=== PATIENT | female | born 1940 | race Caucasian/White ===

== ENCOUNTER → 2018-09-04 11:32 | Outpatient (CLI) | payer MEDICARE, BC, SELFPAY ==
--- NOTE | 2018-09-04 | DI.MG.S_ITS ---
BILATERAL DIGITAL SCREENING MAMMOGRAM 3D/2D WITH CAD: 09/04/2018 CLINICAL: Routine screening. Family history of breast cancer. Comparison is made to exams dated: 05/05/2017 mammogram, 10/29/2015 mammogram, and 10/26/2014 mammogram - [facility]. The tissue of both breasts is heterogeneously dense. This may lower the sensitivity of mammography. Current study was also evaluated with a Computer Aided Detection (CAD) system. There is a benign mass in the right breast. No significant masses, calcifications, or other findings are seen in either breast. There has been no significant interval change. IMPRESSION: There is no mammographic evidence of malignancy. A 1 year screening mammogram is recommended. This exam was interpreted at Station ID: [id number]. NOTE: For mammograms, a report in lay terms will be sent to the patient. Approximately 15% of breast malignancies will not be visualized mammographically. In the management of a palpable breast mass, a negative mammogram must not discourage biopsy of a clinically suspicious lesion. Electronically Signed By: Maco urena/ayanna:09/06/2018 09:03:51 letter sent: Normal Exam ACR BI-RADS Category 2: Benign Finding(s) 3342F
== END ==
PROVIDERS: Family Provider Family Medicine; PCP Family Medicine; Visit Provider Family Medicine
DX: Z12.31 Encounter for screening mammogram for malignant neoplasm of breast (principal); Z80.3 Family history of malignant neoplasm of breast
CPT/HCPCS: 77063; 77067

== ENCOUNTER → 2019-01-20 09:21 | Outpatient (CLI) | payer MEDICARE, BC, SELFPAY ==
[2019-01-20 10:09] LABS: Add Manual Diff / Slide Review NO; Basophils Absolute Auto 0 /uL (0-100); Basophils Percent Auto 0.8 % (0-2); Eosinophils Absolute Auto 100 /uL (0-450); Eosinophils Percent Auto 2.7 % (2-4); Hematocrit 42.7 % (36-46); Hemoglobin 14.2 g/dL (12.0-16.0); Lymphocytes Absolute Auto 1300 /uL (1100-4500); Lymphocytes Percent Auto 29.4 % (25-40); Mean Corpuscular HGB Conc 33.4 % (30-36); Mean Corpuscular Hemoglobin 31.3 PG (26-34); Mean Corpuscular Volume 93.8 fL (80-100); Monocytes Absolute Auto 400 /uL (0-900); Monocytes Percent Auto 10.1 % (3-14); Neutrophils Absolute Auto 2500 /uL (1500-7000); Platelet Count 176 X10^3/uL (150-400); Red Blood Cell Count 4.55 X10^6/uL (4.0-5.2); White Blood Cell Count 4.5 X10^3/uL (4.5-11.0)
[2019-01-20 10:44] LABS: Alanine Aminotransferase 41 IU/L (9-52); Albumin 4.5 g/dL (3.5-5.0); Albumin Globulin Ratio 1.5 (1.0-2.8); Alkaline Phosphatase 88 U/L (38-126); Aspartate Aminotransferase 45 IU/L (14-36); Bilirubin Total 1.1 mg/dL (0.2-1.3); Blood Urea Nitrogen 18 mg/dL (7-17); Calcium 9.8 mg/dL (8.4-10.2); Carbon Dioxide 31 mmol/L (22-32); Chloride 102 mmol/L (98-107); Cholesterol 181 mg/dL (140-199); Estimated Glomerular Filt Rate > 60.0 mL/min (>60); Globulin 3.1 g/dL (1.7-4.1); Glucose 99 mg/dL (80-110); HDL Cholesterol 46 mg/dL (40-60); HEMOLYSIS < 15 (0-50); LDL Cholesterol Calculated 102 mg/dL (<100); Potassium 4.2 mmol/L (3.4-5.1); Sodium 141 mmol/L (137-145); Total Protein 7.6 g/dL (6.3-8.2); Triglycerides 166 mg/dL (35-150)
[2019-01-20 11:10] LABS: Thyroid Stimulating Hormone 0.18 uIU/mL (0.47-4.68)
[2019-01-20 11:44] LABS: Creatinine Urine Random 93.1 mg/dL
[2019-01-20 11:48] LABS: Microalbumi Creatinin Ratio Ur 65.5 ug/mg CR (<30); Microalbumin Urine Random 6.1 mg/dL (0-1.6)
== END ==
PROVIDERS: PCP Family Medicine; Visit Provider Family Medicine
DX: E78.00 Pure hypercholesterolemia, unspecified (principal); G47.33 Obstructive sleep apnea (adult) (pediatric); I10 Essential (primary) hypertension; N28.9 Disorder of kidney and ureter, unspecified; R53.82 Chronic fatigue, unspecified; R89.9 Unspecified abnormal finding in specimens from other organs, systems and tissues; R94.5 Abnormal results of liver function studies; Z13.21 Encounter for screening for nutritional disorder; Z79.899 Other long term (current) drug therapy
CPT/HCPCS: 36415; 80053; 80061; 82043; 82306; 82570; 84443; 85025

== ENCOUNTER → 2019-02-15 13:47 | Outpatient (CLI) | payer MEDICARE, BC, SELFPAY | PROVIDERS: PCP Family Medicine; Visit Provider Family Medicine | DX: M85.852 Other specified disorders of bone density and structure, left thigh (principal); Z78.0 Asymptomatic menopausal state | CPT/HCPCS: 77080 ==

== ENCOUNTER → 2019-06-28 09:51 | Outpatient (CLI) | payer MEDICARE, BC, SELFPAY ==
[2019-06-28 10:38] LABS: Add Manual Diff / Slide Review NO; Basophils Absolute Auto 0 /uL (0-100); Basophils Percent Auto 0.7 % (0-2); Eosinophils Absolute Auto 100 /uL (0-450); Eosinophils Percent Auto 1.8 % (2-4); Hematocrit 42.2 % (36-46); Hemoglobin 14.3 g/dL (12.0-16.0); Lymphocytes Absolute Auto 1300 /uL (1100-4500); Lymphocytes Percent Auto 33.2 % (25-40); Mean Corpuscular HGB Conc 33.8 % (30-36); Mean Corpuscular Hemoglobin 31.3 PG (26-34); Mean Corpuscular Volume 92.5 fL (80-100); Monocytes Absolute Auto 500 /uL (0-900); Monocytes Percent Auto 11.7 % (3-14); Neutrophils Absolute Auto 2100 /uL (1500-7000); Neutrophils Percent Auto 52.6 % (50-75); Platelet Count 174 X10^3/uL (150-400); Red Blood Cell Count 4.56 X10^6/uL (4.0-5.2); Red Cell Distribution Width 12.8 % (11.6-14.8); White Blood Cell Count 3.9 X10^3/uL (4.5-11.0)
[2019-06-28 11:07] LABS: Alanine Aminotransferase 98 IU/L (9-52); Albumin 4.3 g/dL (3.5-5.0); Albumin Globulin Ratio 1.5 (1.0-2.8); Alkaline Phosphatase 109 U/L (38-126); Aspartate Aminotransferase 128 IU/L (14-36); BUN Creatinine Ratio 43.3 (6-22); Bilirubin Total 1.3 mg/dL (0.2-1.3); Blood Urea Nitrogen 26 mg/dL (7-17); Carbon Dioxide 30 mmol/L (22-32); Chloride 102 mmol/L (98-107); Estimated Glomerular Filt Rate > 60.0 mL/min (>60); Globulin 2.9 g/dL (1.7-4.1); Glucose 99 mg/dL (80-110); HEMOLYSIS < 15 (0-50); Magnesium 2.2 mg/dL (1.6-2.3); Potassium 4.7 mmol/L (3.4-5.1); Sodium 140 mmol/L (137-145); Total Protein 7.2 g/dL (6.3-8.2)
[2019-06-28 11:21] LABS: Vitamin D 25 Hydroxy (D3) 32.9 ng/mL (30.0-100.0)
[2019-06-28 11:35] LABS: TSH w/ Reflex to FT4 1.39 uIU/mL (0.47-4.68)
== END ==
PROVIDERS: PCP Family Medicine; Visit Provider Family Medicine
DX: R25.2 Cramp and spasm (principal); E55.9 Vitamin D deficiency, unspecified; R79.89 Other specified abnormal findings of blood chemistry
CPT/HCPCS: 36415; 80053; 82306; 83735; 84443; 85025

== ENCOUNTER → 2019-07-26 10:46 | Outpatient (CLI) | payer MEDICARE, BC, SELFPAY ==
[2019-07-26 11:43] LABS: Alanine Aminotransferase 92 IU/L (<35); Albumin 4.8 g/dL (3.5-5.0); Albumin Globulin Ratio 1.5 (1.0-2.8); Alkaline Phosphatase 107 U/L (38-126); Aspartate Aminotransferase 115 IU/L (14-36); Bilirubin Total 1.6 mg/dL (0.2-1.3); Bilirubin Unconjugated 1.5 mg/dL (0.0-1.1); Globulin 3.3 g/dL (1.7-4.1); HEMOLYSIS < 15 (0-50); Total Protein 8.1 g/dL (6.3-8.2)
[2019-07-31 08:27] LABS: Hepatitis A Antibody IgM NONREACTIVE; Hepatitis Acute Panel Interp 0.01; Hepatitis B Core Antibody IgM NONREACTIVE; Hepatitis B Surface Antigen NONREACTIVE; Hepatitis C Antibody NONREACTIVE
== END ==
PROVIDERS: PCP Family Medicine; Visit Provider Family Medicine
DX: R94.5 Abnormal results of liver function studies (principal)
CPT/HCPCS: 36415; 80074; 80076

== ENCOUNTER → 2020-02-16 15:17 | Outpatient (CLI) | payer MEDICARE, BC, SELFPAY ==
[2020-02-16 17:46] LABS: Alanine Aminotransferase 136 IU/L (<35); Albumin 4.4 g/dL (3.5-5.0); Albumin Globulin Ratio 1.4 (1.0-2.8); Alkaline Phosphatase 123 U/L (38-126); Aspartate Aminotransferase 221 IU/L (14-36); BUN Creatinine Ratio 31.9 (6-22); Bilirubin Total 0.9 mg/dL (0.2-1.3); Blood Urea Nitrogen 22 mg/dL (7-17); Calcium 10.3 mg/dL (8.4-10.2); Carbon Dioxide 29 mmol/L (22-32); Chloride 102 mmol/L (98-107); Estimated Glomerular Filt Rate > 60.0 mL/min (>60); Globulin 3.1 g/dL (1.7-4.1); Glucose 113 mg/dL (80-110); HEMOLYSIS 19 (0-50); Potassium 4.1 mmol/L (3.4-5.1); Sodium 139 mmol/L (137-145); Total Protein 7.5 g/dL (6.3-8.2)
== END ==
PROVIDERS: PCP Family Medicine; Referring Provider Family Medicine; Visit Provider Family Medicine
DX: R94.5 Abnormal results of liver function studies (principal)
CPT/HCPCS: 36415; 80053

== ENCOUNTER → 2020-02-28 12:39 | Outpatient (CLI) | payer MEDICARE, BC, SELFPAY ==
--- NOTE | 2020-02-28 12:41 | DI.US.S_ITS ---
PROCEDURE: US ABDOMEN LIMITED INDICATIONS: ELEVATED LIVER ENZYMES TECHNIQUE: Real-time focused scanning was performed of the abdomen, with image documentation. COMPARISON: CT, ABDOMEN/PELVIS WITH CONTRAST, 11/06/2010, 9:01. FINDINGS: Liver is diffusely increased in echogenicity. No focal hepatic abnormalities identified. Normal hepatic size. Multiple gallstones present. No gallbladder wall thickening or pericholecystic fluid. Negative sonographic Evans sign. Common bile duct upper limits of normal in size. IMPRESSION: 1. Cholelithiasis without acute cholecystitis. 2. Increased hepatic echogenicity noted possibly related to hepatic steatosis but other sources of hepatocellular disease cannot be excluded. Recommend clinical correlation. 3. Common bile duct upper limits of normal in caliber. Correlate with LFTs. Dictated by: Rancho PUGA Interpreted: Anastasia Dumont MD on 02/28/2020 at 14:09 Approved by: Anastasia Dumont M.D. on 02/28/2020 at 14:19
== END ==
PROVIDERS: PCP Family Medicine; Referring Provider Family Medicine; Visit Provider Family Medicine
DX: R74.8 Abnormal levels of other serum enzymes (principal); K80.20 Calculus of gallbladder without cholecystitis without obstruction
CPT/HCPCS: 76705

== ENCOUNTER → 2020-03-23 10:55 | Outpatient (CLI) | payer MEDICARE, BC, SELFPAY ==
[2020-03-25 19:07] LABS: COVID19 Sendout Not Detected (Not Detect)
== END ==
PROVIDERS: PCP Family Medicine; Visit Provider Physician Assistant
DX: Z01.818 Encounter for other preprocedural examination (principal)
CPT/HCPCS: 87635

== ENCOUNTER 2020-03-26 06:17 | Day surgery (SDC) | payer MEDICARE, BC, SELFPAY ==
[2020-03-20 07:49] VITALS: BMI 23.8
[2020-03-26] VITALS (15 sets, daily range): BP systolic 97–160; BP diastolic 57–84; PULSE 53–68; RESP 12–20; TEMP 36.1–36.7; O2SAT 91–97; BMI 24.5
--- NOTE | 2020-03-26 | DI.RAD.S_ITS ---
PROCEDURE: XR CHOLANGIOGRAM OPERATIVE INDICATIONS: LAP ARMANDO COMPARISON: None. FINDINGS: Biliary ducts: The surgeon injected contrast into the biliary ducts after cannulation of the cystic duct stump. Visualized intra- and extrahepatic bile ducts are normal in caliber, without strictures. No intraluminal filling defects to suggest retained ductal stones or sludge. No evidence for iatrogenic ductal injury. Duodenum: Contrast flows promptly through the sphincter of Oddi into the duodenum, which appears normal in caliber. IMPRESSION: Normal operative cholangiogram. Dictated by: Efrain Posadas M.D. on 03/26/2020 at 16:33 Approved by: Efrain Posadas M.D. on 03/26/2020 at 16:33
--- NOTE | 2020-03-26 | PATH_ITS ---
[facility] Accession Number: [id number] . 01 Material submitted: . PART A: gallbladder - GALLBLADDER AND CONTENTS PART B: liver - LIVER . 01 Diagnosis: A. Gallbladder and Contents, Cholecystectomy: Chronic cholecystitis with cholelithiasis. One benign lymph node. No evidence of neoplasm. . B. Liver, Wedge Biopsy: Liver with mild steatosis and features of steatohepatitis; please see comment. At least periportal fibrosis highlighted on trichrome stain. 1+ iron deposition on iron stain. [facility] 03/29/2020 1552 Local . 01 Comment: The overall features are consistent with steatohepatitis. If clinically nonalcoholic fatty liver disease, the activity score (LELIA) would be best classified as a score of 5 of 8. . 01 Electronically signed: . Papi Ward MD, PhD, Pathologist NPI- [id number] . 01 Gross description: . Specimen A is received in formalin, labeled with patient identification and gallbladder and contents. It consists of an intact gallbladder, measuring 7.0 cm in length and 3.2 cm in diameter. The cystic duct margin is stapled shut and is inked blue. The cystic duct is 0.3 cm in diameter. The serosa is pink-shah with white exudate. The hepatic surface is yellow-shah, shiny, and focally cauterized. Opening the specimen reveals a yellow-shah and mildly velvety mucosa with a black to orange oval calculus, measuring 1.9 x 1.4 x 1.1 cm. The wall thickness is up to 0.3 cm. A cystic lymph node candidate is present, measuring 0.8 x 0.7 x 0.4 cm. [employer] sections are submitted in three cassettes. . Summary of Sections: A1 - Cystic duct margin, shaved, one piece. A2 - [employer] sections of gallbladder, three pieces. A3 - One intact lymph node candidate, one piece. . Specimen B is received in formalin, labeled with patient identification and liver biopsy. It consists of a less than 1.0 gram, 1.5 x 1.0 x 0.7 cm unoriented hepatic tissue piece. The yellow-shah and mildly lobulated outer surface is entirely inked blue. Sectioning reveals mildly lobulated and yellow-shah cut surfaces. The entire specimen is submitted in two cassettes. . Summary of Sections: B1 - Four pieces. B2 - Three pieces. ([id number]) /[facility] 03/27/2020 1618 Local . 01 Microscopic: . B. Sections are of liver parenchyma with mild steatosis (approximately 20%), predominantly macrovesicular. Focally, several foci of active neutrophilic inflammation are present within lobules. Scattered ballooned hepatocytes are readily identified. Mild chronic portal inflammation is also present, consisting predominantly of lymphocytes. A trichrome stain highlights at least periportal fibrosis, with a few foci suspicious for early bridging fibrosis. A PAS stain with diastase is negative for the intrahepatocytic globules of alpha-1 antitrypsin deficiency. There is patchy mild (1+) intrahepatocytic iron deposition on an iron stain. A cytomegalovirus immunohistochemical stain is negative for CMV inclusions. All control stains show appropriate reactivity. . 01 Pathologist provided ICD-10: K80.20, K76.0 . 01 CPT . 119349, 086519, 220532, 628433, 553994, [id number] Performed at: 01 [facility] [address] [place] [address] [address], [place], [place] [id number] MD Maco Henderson MD Phone: [phone]
[2020-03-26] MEDS: LACTATED RINGERS 1,000 ML 42 ML IV ×2 (07:15→09:44)
--- NOTE | 2020-03-26 07:32 | SUR.OPER ---
Supine on padded OR bed, head on pillow, arms secured on padded arm boards at <90 degrees abduction, legs uncrossed, footboard, safety belt at thigh, tape over blanket over lower legs.
--- NOTE | 2020-03-26 07:41 | PM.PREOP ---
Pre-operative Note COVID-19 COVID-19 status: Negative Result date/Date tested (Pos, Neg/Pending): 03/23/20 Interval Note History & Physical reviewed/Exam performed by Physician: Yes Changes to H&P: No
[2020-03-26] MEDS: CEFAZOLIN 2 GM/100 ML FROZ.PIGGY IV (07:51)
[2020-03-26] MEDS: IOPAMIDOL 15 ML VIAL INJ (08:25)
[2020-03-26] MEDS: BUPIVACAINE 0.5% (PF) VIAL 30 ML INJ (08:26)
--- NOTE | 2020-03-26 10:12 | SUR.PHASEI ---
received to PACU after general anesthesia. Airway patent, self maintained. Report received from Dr Odonnell and LOUISE Keenan.
--- NOTE | 2020-03-26 10:23 | P.OP_ITS ---
Operative Date/Time/Diagnoses Date of procedure: 03/26/20 Time of procedure: 10:00 Pre-op diagnosis: Cholelithiasis possible cholecystitis. Possible choledocholithiasis. Abnormal liver function tests. Fatty infiltration of the liver. Post-op diagnosis: same (Cirrhosis in addition to the other. No evidence of stones in the common duct) Procedure & Clinicians Procedure: Laparoscopic cholecystectomy with intraoperative cholangiogram and liver biopsy Same procedure as scheduled: Yes Indications: Patient with abnormal liver function tests gallstones and fatty liver on imaging. Surgeon: Alfred Gee Click Yes if Unassisted: Yes Anesthesia Type: General Operative Notes Findings: Nodular liver with a very pale color consistent with fatty infiltration and cirrhosis. Gallbladder wall edematous. Cholangiogram unremarkable. No stones and free flow into the duodenum and normal caliber. Closure Type: primary Specimen(s): other (Gallbladder) Estimated Blood Loss (mL): 15 Blood products transfused: none Procedure in detail: The patient was placed supine on the operating room table and underwent general endotracheal anesthesia. The patient was prepped and draped in the usual fashion. Local anesthetic was infiltrated near the umbilicus and curvilinear incision made and carried down through fascia into the peritoneal cavity. Stay sutures of 0 Vicryl were placed in the fascia. A 12 mm port was placed. The abdomen was insufflated. The patient was repositioned. Local anesthetic was infiltrated in 3 areas under the right costal margin and 3D incisions made followed by placing 3 5 mm ports under direct laparoscopic camera vision internally. The gallbladder was grasped and elevated. Dissection was begun near its end. I carefully teased out the common bowel duct from surrounding small vascular structures. A clip was placed on the vascular structure on the side of the common duct and the gallbladder side was cauterized and divided. These looked like small veins. The cystic duct was identified is a singular ductal structure going to regularly to the gallbladder. A clip was placed at its junction with the gallbladder and a small cut was intentionally made in the cystic duct. Cholangiocatheter was inserted and cholangiogram performed. It showed a normal ductal anatomy with no filling defect and free flow into the duodenum. The cystic artery was identified adjacent to the cystic duct. I placed 2 clips on the cystic duct on the common duct side and 3 on the artery. These were then completely transected leaving the 2 clips on the cystic duct in the patient and 2 clips on the artery in the patient.. The gallbladder was then dissected from its bed in the liver using cautery. This was a slow process as portion of the gallbladder was intraparenchymal. It was detached. A readily visible edge of liver was biopsied and the biopsy site cauterized. Both the liver biopsy and the gallbladder were removed through the umbilical port. the port sites were all irrigated. The stay sutures at the umbilicus were rosa vated. A 2 0 PDS suture was placed between them. The Vicryl and PDS sutures were then tied. The skin in all areas was closed with interrupted 4 0 Vicryl subcuticular stitches. Steri-Strips and Mastisol were applied. Band-Aids were placed and the patient was awakened, extubated and taken to the recovery area in good condition. Complications: none Post-operative Condition: stable Disposition: PACU Plan for aftercare: Follow-up in the office
[2020-03-26] MEDS: fentaNYL 100 MCG/2 ML INJ IV (10:26)
[2020-03-26] MEDS: OXYCODONE/ACETAMINOPHEN 5/325 TABLET 1 TAB PO ×2 (10:44→11:31)
--- NOTE | 2020-03-26 10:59 | SUR.PHASEI ---
BP as noted. Pt received hydralazine in OR. Pt asymptomatic with current BP.
--- NOTE | 2020-03-26 12:27 | SUR.PHASEII ---
pt taken outside via wheelchair. Discharge instructions given to pt and to pt's friend. Both state they understand d/c instructions. Pt had been nauseaous and had vomited and stated she felt better. pt given a bag to take home with her in case she had vomited. pt passing gas. States she is going home and going to bed.
== END 2020-03-26 12:20 | disposition home or self-care (01) ==
PROVIDERS: PCP Family Medicine; Referring Provider Specialist; Visit Provider Specialist
PROC: 0FT44ZZ Resection of Gallbladder, Percutaneous Endoscopic Approach (ICD-10-PCS; CPT 47562; principal; 2020-03-26 07:45)
DX: K80.20 Calculus of gallbladder without cholecystitis without obstruction (principal); K76.0 Fatty (change of) liver, not elsewhere classified; K74.60 Unspecified cirrhosis of liver
CPT/HCPCS: 47563; 47001; 74018; 76000; J0360; J0690; J1100; J2405; J2704; J3010

== ENCOUNTER → 2020-03-29 11:48 | Outpatient (CLI) | payer MEDICARE, BC, SELFPAY ==
--- NOTE | 2020-03-29 11:51 | DI.RAD.S_ITS ---
PROCEDURE: XR CHEST 2V INDICATIONS: post op lap choly. chest pain right r/o infiltrate/effusion TECHNIQUE: 2 views of the chest were acquired. COMPARISON: [facility], , CHEST 1 VIEW, 01/16/2013, 13:31. [facility], , CHEST 2 VIEW, 10/10/2011, 12:06. FINDINGS: Surgical changes and devices: None. Lungs and pleura: Elevation of the right diaphragm is present. There is blunting of the posterior costophrenic angles. Discoid atelectasis at the left lung base is present. No large effusion or pneumothorax is identified. Mediastinum: Mediastinal contours are normal. Heart size is normal. There is aortic atherosclerosis. Bones and chest wall: No suspicious bony abnormalities. Soft tissues appear unremarkable. IMPRESSION: 1. Discoid atelectasis at the left lung base. 2. Elevated right diaphragm is of uncertain etiology, but is new since 2012. This may be related to an age-indeterminate diaphragmatic injury. 3. Probable trace bilateral effusions. Dictated by: Nash Motta M.D. on 03/29/2020 at 11:27 Approved by: Nash Motta M.D. on 03/29/2020 at 11:30
[2020-03-29 12:08] LABS: Add Manual Diff / Slide Review NO; Basophils Absolute Auto 0 /uL (0-100); Basophils Percent Auto 0.4 % (0-2); Eosinophils Absolute Auto 100 /uL (0-450); Eosinophils Percent Auto 1.4 % (2-4); Hematocrit 44.2 % (36-46); Lymphocytes Absolute Auto 2600 /uL (1100-4500); Lymphocytes Percent Auto 27.3 % (25-40); Mean Corpuscular HGB Conc 33.9 % (30-36); Mean Corpuscular Hemoglobin 32.1 PG (26-34); Mean Corpuscular Volume 94.8 fL (80-100); Monocytes Absolute Auto 800 /uL (0-900); Monocytes Percent Auto 8.8 % (3-14); Neutrophils Absolute Auto 5900 /uL (1500-7000); Neutrophils Percent Auto 62.1 % (50-75); Platelet Count 171 X10^3/uL (150-400); Red Blood Cell Count 4.66 X10^6/uL (4.0-5.2); Red Cell Distribution Width 13.3 % (11.6-14.8); White Blood Cell Count 9.4 X10^3/uL (4.5-11.0)
[2020-03-29 12:21] LABS: Alanine Aminotransferase 60 IU/L (<35); Albumin 4.1 g/dL (3.5-5.0); Albumin Globulin Ratio 1.3 (1.0-2.8); Alkaline Phosphatase 88 U/L (38-126); Aspartate Aminotransferase 57 IU/L (14-36); BUN Creatinine Ratio 27.5 (6-22); Bilirubin Total 1.9 mg/dL (0.2-1.3); Blood Urea Nitrogen 19 mg/dL (7-17); Calcium 10.2 mg/dL (8.4-10.2); Carbon Dioxide 30 mmol/L (22-32); Chloride 101 mmol/L (98-107); Estimated Glomerular Filt Rate > 60.0 mL/min (>60); Globulin 3.1 g/dL (1.7-4.1); Glucose 143 mg/dL (80-110); HEMOLYSIS < 15 (0-50); Potassium 4.4 mmol/L (3.4-5.1); Sodium 137 mmol/L (137-145); Total Protein 7.2 g/dL (6.3-8.2)
== END ==
PROVIDERS: PCP Family Medicine; Referring Provider Specialist; Visit Provider Specialist
DX: K80.00 Calculus of gallbladder with acute cholecystitis without obstruction (principal); R06.02 Shortness of breath; R07.81 Pleurodynia
CPT/HCPCS: 36415; 71046; 80053; 85025

== ENCOUNTER → 2020-05-22 11:35 | Outpatient (CLI) | payer MEDICARE, BC, SELFPAY ==
[2020-05-22 13:06] LABS: Ferritin 327 ng/mL (11-264)
[2020-05-22 13:19] LABS: Hep C Virus Ab w/Reflex Quant NEGATIVE s/c (NEGATIVE)
[2020-05-22 13:20] LABS: Hepatitis B Surface Antigen NEGATIVE s/c (NEGATIVE)
[2020-05-24 19:36] LABS: ANA Screen, IFA Positive (.)
[2020-05-25 12:06] LABS: Smooth Muscle Antibody 25 Units (0-19)
== END ==
PROVIDERS: PCP Family Medicine; Referring Provider Internal Medicine Gastroenterology; Visit Provider Internal Medicine Gastroenterology
DX: K75.81 Nonalcoholic steatohepatitis (NASH) (principal)
CPT/HCPCS: 36415; 82728; 83516; 86038; 86803; 87340

== ENCOUNTER → 2020-08-29 17:03 | Outpatient (CLI) | payer MEDICARE, BC, SELFPAY ==
--- NOTE | 2020-08-29 | DI.MG.S_ITS ---
BILATERAL DIGITAL SCREENING MAMMOGRAM 3D/2D WITH CAD: 08/29/2020 CLINICAL: Routine screening. Family history of breast cancer. Comparison is made to exams dated: 09/04/2018 mammogram, 12/11/2017 mammogram, 06/12/2017 mammogram, 05/25/2017 mammogram, and 05/05/2017 mammogram - [facility]. The tissue of both breasts is heterogeneously dense. This may lower the sensitivity of mammography. Current study was also evaluated with a Computer Aided Detection (CAD) system. There is a benign mass in the right breast. There also is a biopsy clip in the right breast. No significant masses, calcifications, or other findings are seen in either breast. There has been no significant interval change. IMPRESSION: BENIGN There is no mammographic evidence of malignancy. A 1 year screening mammogram is recommended. This exam was interpreted at Station ID: [id number]. NOTE: For mammograms, a report in lay terms will be sent to the patient. Approximately 15% of breast malignancies will not be visualized mammographically. In the management of a palpable breast mass, a negative mammogram must not discourage biopsy of a clinically suspicious lesion. Electronically Signed By: Tj winchester/ayanna:08/30/2020 08:38:48 letter sent: Normal Exam ACR BI-RADS Category 2: Benign Finding(s) 3342F
== END ==
PROVIDERS: PCP Family Medicine; Referring Provider Family Medicine; Visit Provider Family Medicine
DX: Z12.31 Encounter for screening mammogram for malignant neoplasm of breast (principal); Z80.3 Family history of malignant neoplasm of breast
CPT/HCPCS: 77063; 77067

== ENCOUNTER → 2021-11-12 16:50 | Outpatient (CLI) | payer MEDICARE, BC, SELFPAY ==
--- NOTE | 2021-11-12 | DI.MG.S_ITS ---
BILATERAL DIGITAL SCREENING MAMMOGRAM 3D/2D WITH CAD: 11/12/2021 CLINICAL: Routine screening. Family history of breast cancer. Comparison is made to exams dated: 08/29/2020 mammogram, 09/04/2018 mammogram, and 12/11/2017 mammogram - [facility]. The tissue of both breasts is heterogeneously dense. This may lower the sensitivity of mammography. Current study was also evaluated with a Computer Aided Detection (CAD) system. There is a benign mass in the right breast. There also is a biopsy clip in the right breast. No significant masses, calcifications, or other findings are seen in either breast. There has been no significant interval change. IMPRESSION: BENIGN There is no mammographic evidence of malignancy. A 1 year screening mammogram is recommended. This exam was interpreted at Station ID: [id number]. NOTE: For mammograms, a report in lay terms will be sent to the patient. Approximately 15% of breast malignancies will not be visualized mammographically. In the management of a palpable breast mass, a negative mammogram must not discourage biopsy of a clinically suspicious lesion. Electronically Signed By: Tj winchester/ayanna:11/13/2021 08:53:18 letter sent: Normal Exam ACR BI-RADS Category 2: Benign Finding(s) 3342F
== END ==
PROVIDERS: PCP Family Medicine; Referring Provider Family Medicine; Visit Provider Family Medicine
DX: Z12.31 Encounter for screening mammogram for malignant neoplasm of breast (principal); Z80.3 Family history of malignant neoplasm of breast
CPT/HCPCS: 77063; 77067

== ENCOUNTER → 2022-02-19 16:39 | Outpatient (CLI) | payer MEDICARE, BC, SELFPAY ==
[2022-02-19 18:10] LABS: Alanine Aminotransferase 54 IU/L (<35); Albumin 4.4 g/dL (3.5-5.0); Albumin Globulin Ratio 1.3 (1.0-2.8); Alkaline Phosphatase 145 U/L (38-126); Aspartate Aminotransferase 81 IU/L (14-36); BUN Creatinine Ratio 36.8 (6-22); Bilirubin Total 1.3 mg/dL (0.2-1.3); Blood Urea Nitrogen 21 mg/dL (7-17); Calcium 9.9 mg/dL (8.4-10.2); Carbon Dioxide 23 mmol/L (22-32); Chloride 107 mmol/L (98-107); Estimated Glomerular Filt Rate > 60 mL/min (>60); Globulin 3.3 g/dL (1.7-4.1); Glucose 94 mg/dL (80-110); Sodium 140 mmol/L (137-145); Total Protein 7.7 g/dL (6.3-8.2)
[2022-02-19 18:18] LABS: Add Manual Diff / Slide Review NO; Basophils Absolute Auto 0 /uL (0-100); Basophils Percent Auto 0.6 % (0-2); Eosinophils Absolute Auto 100 /uL (0-450); Eosinophils Percent Auto 2.1 % (2-4); Hematocrit 41.6 % (36-46); Hemoglobin 14.6 g/dL (12.0-16.0); Lymphocytes Absolute Auto 2500 /uL (1100-4500); Lymphocytes Percent Auto 41.3 % (25-40); Mean Corpuscular Hemoglobin 32.7 PG (26-34); Mean Corpuscular Volume 93.5 fL (80-100); Monocytes Absolute Auto 500 /uL (0-900); Monocytes Percent Auto 8.9 % (3-14); Neutrophils Absolute Auto 2900 /uL (1500-7000); Neutrophils Percent Auto 47.1 % (50-75); Red Blood Cell Count 4.45 X10^6/uL (4.0-5.2); White Blood Cell Count 6.1 X10^3/uL (4.5-11.0)
[2022-02-19 21:04] LABS: Creatinine Urine Random 126.5 mg/dL
[2022-02-19 21:10] LABS: Microalbumi Creatinin Ratio Ur 15.8 ug/mg CR (<30)
[2022-02-21 04:38] LABS: HEMOLYSIS 23 (0-50)
[2022-02-21 05:35] LABS: Vitamin B12 335 pg/mL (239-931)
== END ==
PROVIDERS: PCP Family Medicine; Referring Provider Family Medicine; Visit Provider Family Medicine
DX: I10 Essential (primary) hypertension (principal); R25.2 Cramp and spasm
CPT/HCPCS: 36415; 80053; 82043; 82570; 82607; 85025

== ENCOUNTER → 2022-07-28 13:13 | Outpatient (CLI) | payer MEDICARE, BC, SELFPAY ==
[2022-07-28 14:25] LABS: Influenza A - CEPHEID Flu A NEGATIVE (NEGATIVE); Influenza B - CEPHEID Flu B NEGATIVE (NEGATIVE); Respiratory Syncytial Virus Negative (Negative)
[2022-07-28 14:27] LABS: COVID-19 CEPHEID 4-PLEX PCR Negative (Negative)
== END ==
PROVIDERS: PCP Family Medicine; Visit Provider Registered Nurse
DX: Z20.828 Contact with and (suspected) exposure to other viral communicable diseases (principal); R05.1 Acute cough
CPT/HCPCS: 0241U

== ENCOUNTER → 2022-12-04 09:29 | Outpatient (CLI) | payer MEDICARE, BC, SELFPAY ==
[2022-12-04 11:17] LABS: Add Manual Diff / Slide Review NO; Basophils Absolute Auto 0 /uL (0-100); Basophils Percent Auto 0.6 % (0-2); Eosinophils Absolute Auto 100 /uL (0-450); Eosinophils Percent Auto 2.4 % (2-4); Hematocrit 44.6 % (36-46); Hemoglobin 14.7 g/dL (12.0-16.0); Lymphocytes Absolute Auto 1800 /uL (1100-4500); Lymphocytes Percent Auto 37.3 % (25-40); Mean Corpuscular Hemoglobin 31.4 PG (26-34); Mean Corpuscular Volume 95.1 fL (80-100); Monocytes Absolute Auto 400 /uL (0-900); Monocytes Percent Auto 8.3 % (3-14); Neutrophils Absolute Auto 2500 /uL (1500-7000); Neutrophils Percent Auto 51.4 % (50-75); Platelet Count 134 X10^3/uL (150-400); Red Blood Cell Count 4.69 X10^6/uL (4.0-5.2); Red Cell Distribution Width 12.9 % (11.6-14.8); White Blood Cell Count 4.9 X10^3/uL (4.5-11.0)
[2022-12-04 11:43] LABS: Alanine Aminotransferase 70 IU/L (<35); Albumin 4.4 g/dL (3.5-5.0); Albumin Globulin Ratio 1.4 (1.0-2.8); Alkaline Phosphatase 128 U/L (38-126); Aspartate Aminotransferase 81 IU/L (14-36); BUN Creatinine Ratio 31.1 (6-22); Bilirubin Total 1.7 mg/dL (0.2-1.3); Blood Urea Nitrogen 19 mg/dL (7-17); Calcium 9.7 mg/dL (8.4-10.2); Carbon Dioxide 30 mmol/L (22-32); Chloride 103 mmol/L (98-107); Cholesterol 152 mg/dL (140-199); Estimated Glomerular Filt Rate > 60 mL/min (>60); Globulin 3.1 g/dL (1.7-4.1); Glucose 102 mg/dL (80-110); HDL Cholesterol 47 mg/dL (40-60); HEMOLYSIS < 15 (0-50); LDL Cholesterol Calculated 75 mg/dL (<100); Potassium 3.6 mmol/L (3.4-5.1); Sodium 143 mmol/L (137-145); Total Protein 7.5 g/dL (6.3-8.2); Triglycerides 152 mg/dL (35-150)
[2022-12-04 12:11] LABS: TSH w/ Reflex to FT4 1.13 uIU/mL (0.47-4.68)
[2022-12-04 12:17] LABS: Creatinine Urine Random 62.8 mg/dL
[2022-12-04 12:18] LABS: Microalbumi Creatinin Ratio Ur 97.1 ug/mg CR (<30); Microalbumin Urine Random 6.1 mg/dL (0-1.6)
== END ==
PROVIDERS: PCP Family Medicine; Referring Provider Family Medicine; Visit Provider Family Medicine
DX: I10 Essential (primary) hypertension (principal); L65.9 Nonscarring hair loss, unspecified
CPT/HCPCS: 36415; 80053; 80061; 82043; 82570; 84443; 85025

== ENCOUNTER → 2023-03-10 12:59 | Outpatient (CLI) | payer MEDICARE, BC, SELFPAY | PROVIDERS: PCP Family Medicine; Visit Provider Urology | DX: N32.81 Overactive bladder (principal); N81.89 Other female genital prolapse; Z98.890 Other specified postprocedural states; Z90.711 Acquired absence of uterus with remaining cervical stump; Z77.22 Contact with and (suspected) exposure to environmental tobacco smoke (acute) (chronic) | CPT/HCPCS: 51798; 81002; 87086; 99214 ==

== ENCOUNTER 2023-11-04 15:50 | Emergency (ER) | payer MEDICARE, BC, SELFPAY ==
[2023-11-04 15:53] VITALS: BP 173/82; PULSE 61; RESP 18; TEMP 37; O2SAT 96; BMI 23.3
--- NOTE | 2023-11-04 16:20 | ED.HEATRA ---
HPI - Head Injury <Teena Barfield PA-C - Last Filed: 11/04/23 18:53> General Chief complaint: Head Injury Stated complaint: hit in head with sippee cup Time Seen by Provider: 11/04/23 16:01 Source: patient Mode of arrival: Ambulatory History of Present Illness HPI Narrative: 83-year-old female presents with concern for injury to her head around her eye area sustained yesterday around 5:00 p.m.. Patient states that her grandchild was in the crib and through their sippy cup through the air hitting her in the face with patient states it is made out of plastic and is fairly large maybe 12 oz and was at least half full of water. She states it hit her in the forehead above her left eye very hard she did not lose consciousness or see stars but she states it was extremely painful immediately after it happened. Within a few hours she started to have bruising and swelling at that area and also a lot of bruising around her eye which worsened overnight. She originally went to the walk-in clinic but was triaged to the ER by an RN there. She does endorse she does not take any blood thinners or aspirin currently. She does state that she bruises fairly easily. She notes some pain in her face but states it is primarily at the site where she was hit with a cup and a little bit where she has more bruising and swelling below her left eye. She is also concerned because she is supposed to be traveling on Thursday and getting on a flight and will be away from home. Her daughter was concerned about her as well because last night she felt like her pupils might be slightly different in size. She denies vision changes, severe headache, nausea, vomiting, dizziness, difficulty walking or any other symptoms. Related Data Home Medications Medication Instructions Recorded Confirmed Respironics Dreamstation CPAP #1 ea 02/09/19 09/28/23 Hyaluronic Acid 1 tbsp PO DAILY 02/26/23 09/28/23 Super B Complex 1 tab PO DAILY 02/26/23 09/28/23 cholecalciferol (vitamin D3) 25 25 mcg PO DAILY 02/26/23 09/28/23 mcg (1,000 unit) capsule magnesium glycinate 100 mg tablet 400 mg PO .hs 03/10/23 09/28/23 Previous Rx's Medication Instructions Recorded sertraline 100 mg tablet 100 mg PO DAILY #90 tabs 04/13/23 erythromycin 5 mg/gram (0.5 %) eye 1 cm EYE-RIGHT QID #3.5 grams 08/18/23 ointment atenolol 50 mg tablet 50 mg PO BID #180 tabs 09/10/23 Allergies Allergy/AdvReac Type Severity Reaction Status Date / Time Sulfa (Sulfonamide Allergy Unknown HIVES Verified 09/28/23 11:04 Antibiotics) [SULFA (SULFONAMIDE ANTIBIOTICS)] Review of Systems <Teena Barfield PA-C - Last Filed: 11/04/23 18:53> Review of Systems Narrative: See HPI Patient History <Teena Barfield PA-C - Last Filed: 11/04/23 18:53> Medical History 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 Secondhand smoke exposure Excessive daytime sleepiness COVID-19 Cholelithiasis and acute cholecystitis without obstruction Easy bruisability Arthritis Chronic headaches Chronic back pain Depression Hayfever Hyperlipidemia Hypertension GERD (gastroesophageal reflux disease) Chronic sinusitis Overactive bladder Fragrance hypersensitivity Seasonal allergies Foot pain Ankle pain Surgical History History of dilation of urethra History of bladder suspension procedure Hx of cholecystectomy History of partial hysterectomy (1970) History of tonsillectomy and adenoidectomy (1946) History of repair of rectocele (2006) Hx of bladder repair surgery Hx of sinus surgery Hx of appendectomy (1952) Anesthesia Family History Father Bladder cancer Mother Breast cancer Sister Age: 89 Stage I breast cancer Brother Liver disease Hepatitis Son Addiction Unemployed Homeless Daughter Addiction Homeless Unemployed Social History marital status: number of children: 2 household members: none lives independently: Yes caregiver/support person: No housing: house occupational status: other Smoking Status: Never smoker second hand exposure: No alcohol intake: never substance use type: does not use caffeine: Yes Type(s) of exercise: none Smoking Status: Never smoker Substance Use Type: does not use Exam <Teena Barfield PA-C - Last Filed: 11/04/23 18:53> Narrative Exam Narrative: GENERAL: [83] year old patient appears stated age. Well-developed patient, in mild distress. HEAD: See EYES/ENT, facial bones are stable, no deformity noted, there is purplish blue bruising raccoon eye around the left eye orbit however there is no tenderness with palpation except at an area inferior to the left eye where there is slightly increased swelling and bruising and soft tissue tenderness. Also slight tenderness just inferior to the injury site mid left upper orbit above the eye slightly tender without bruising. Atraumatic. Normocephalic. Bite is normal. There is no bruising behind the ears or any other bruising noted. EYES: Pupils round and reactive. Left pupil 2mm is slightly smaller than Right 3mm. Extraocular motions intact and pain-free. No scleral icterus. There is very subtle injection of the left eye but not the right without drainage. ENT: Nasal bones stable, no epistaxis, no oral trauma noted, Nose without bleeding, purulent drainage. Throat without erythema, tonsillar hypertrophy or exudate. Uvula midline Airway patent. NECK: See back. Trachea midline. Non tender CARDIOVASCULAR: Regular rate and rhythm without murmurs, gallops, or rubs. RESPIRATORY: Clear to auscultation. Breath sounds equal bilaterally. No wheezes, rales, or rhonchi. EXTREMITIES: No edema or joint tenderness. BACK: C-spine is Nontender without deformity or crepitance. There is slight paraspinal muscle tenderness on the right. No flank tenderness. NEURO: AOx3. Cranial nerves intact 2 through 12 SKIN: No rash or erythema of visible areas Initial Vital Signs Initial Vital Signs: Vital Signs Temperature 98.6 F 11/04/23 15:53 Pulse Rate 61 11/04/23 15:53 Respiratory Rate 18 11/04/23 15:53 Blood Pressure 173/82 H 11/04/23 15:53 Pulse Oximetry 96 11/04/23 15:53 Oxygen Delivery Method Room Air 11/04/23 15:53 <Chance Gallardo MD - Last Filed: 11/05/23 07:26> Initial Vital Signs Initial Vital Signs: Vital Signs Temperature 98.6 F 11/04/23 15:53 Pulse Rate 61 11/04/23 15:53 Respiratory Rate 18 11/04/23 15:53 Blood Pressure 173/82 H 11/04/23 15:53 Pulse Oximetry 96 11/04/23 15:53 Oxygen Delivery Method Room Air 11/04/23 15:53 Course <Teena Barfield PA-C - Last Filed: 11/04/23 18:53> Orders Ordered: ED Orders 11/04/23 16:20 CT cervical spine wo con Stat CT head/brain wo con Stat Vital Signs Vital signs: Vital Signs - 8 hr 11/04/23 15:53 Temperature 98.6 F Pulse Rate 61 Respiratory Rate 18 Blood Pressure 173/82 H Pulse Oximetry 96 Oxygen Delivery Method Room Air <Chance Gallardo MD - Last Filed: 11/05/23 07:26> Orders Ordered: ED Orders 11/04/23 16:20 CT cervical spine wo con Stat CT head/brain wo con Stat Vital Signs Vital signs: Vital Signs - 8 hr 11/04/23 15:53 Temperature 98.6 F Pulse Rate 61 Respiratory Rate 18 Blood Pressure 173/82 H Pulse Oximetry 96 Oxygen Delivery Method Room Air MDM - Head Injury <Teena Barfield PA-C - Last Filed: 11/04/23 18:53> Differential Diagnosis Differential diagnosis: Likely concussion without loss of consciousness, closed head injury and other (Hematoma) Imaging Data CT - cervical spine: My Impression: Agree with Radiology interpretation Radiologist's Impression: [place] [address] CT Scan Report Signed Patient: Mary Lan MR#: [id number] : 1940 Acct:[id number] Age/Sex: 83 / F Date of Service: 11/04/23 Loc: ED Accession Number: [id number] Procedure: CT cervical spine wo con Ordering Provider: Teena Barfield P.A-C PROCEDURE: CT CERVICAL SPINE WO CON INDICATIONS: head injury yesterday TECHNIQUE: Noncontrast 3 mm thick sections acquired from the skull base to the T4 level. Sagittal and coronal reformats were then constructed. For radiation dose reduction, the following was used: automated exposure control, adjustment of mA and/or kV according to patient size. COMPARISON: None. FINDINGS: Image quality: Excellent. Bones: No fractures or dislocations. Visualized superior ribs are intact. Facet ankylosis noted at C2-3. Disc space narrowing and hypertrophic arthropathy present in the mid to lower cervical spine. Mild to moderate central stenosis at C 4 5, C5-6 and C6-7 with moderate foraminal stenosis on the right Soft tissues: Prevertebral soft tissues are normal in thickness. No paravertebral hematomas. No apical pneumothoraces. IMPRESSION: No displaced fracture or traumatic subluxation. Degenerative disc disease and arthropathy Approved by: Kee Castelan M.D. on 11/04/2023 at 16:04 CT scan - head: My Impression: Agree with Radiology interpretation Radiologist's Impression: [place] [address] CT Scan Report Signed Patient: Mary Lan MR#: [id number] : 1940 Acct:[id number] Age/Sex: 83 / F Date of Service: 11/04/23 Loc: ED Accession Number: [id number] Procedure: CT head/brain wo con Ordering Provider: Teena Barfield P.A-C PROCEDURE: CT HEAD/BRAIN WO CON INDICATIONS: left forehead hit yesterday, bruising no thinners TECHNIQUE: Noncontrast 4.5 mm thick angled axial sections acquired from the foramen magnum to the vertex, with coronal and sagittal reformats. For radiation dose reduction, the following was used: automated exposure control, adjustment of mA and/or kV according to patient size. COMPARISON: [facility], CT, HEAD WITHOUT CONTRAST, 01/16/2013, 13:34. FINDINGS: Image quality: Diagnostic. CSF spaces: Basal cisterns are patent. No extra-axial fluid collections. Ventricles are normal in size and shape. Brain: No midline shift. No intracranial masses or hemorrhage. Villatoro-white matter interface is normal. Atrophy and white matter chronic ischemic change Skull and face: Calvarium and visualized facial bones are intact, without suspicious lesions. Sinuses: Prior sinus surgery with lateral right maxillary wall thickening IMPRESSION: Atrophy and chronic ischemic change without intracranial hemorrhage or mass effect Approved by: Kee Castelan M.D. on 11/04/2023 at 16:08 Treatment and disposition Shared decision making:: Shared decision-making was used in determining plan for this patient's evaluation in the emergency department MDM Narrative Medical decision making narrative: This is an 83-year-old woman with reported history of easy bruising who is not on blood thinners who was hit in the face yesterday left upper forehead around 5:00 p.m. by a plastic sippy cup least half full of water that was thrown from about 5 ft away. Patient's exam is concerning for bruising about the left eye/orbit. And localized pain at the area of impact. The mechanism is not overly concerning however after discussion with attending physician and discussion with the patient reasonable to pursue imaging and pt does feel a lot more comfortable getting imaging done and I definitely think given her age and injury pattern with bruising this is advisable. CT noncontrast head and neck are obtained and return without evidence of intracranial hemorrhage or obvious fracture. Provided the patient with return precautions, follow-up plan discussed, all questions answered. Discharge Plan Departure Patient Disposition: Home Clinical Impression: Hematoma Closed head injury Qualifiers: Encounter type: initial encounter Qualified Code(s): S09.90XA - Unspecified injury of head, initial encounter Instructions: DI for Closed Head Injury Activity Restrictions/Additional Instructions: *You have been diagnosed with [close head injury, hematoma] *What to do: *Please continue to take your regular medications as directed. [ ] New medication prescriptions sent to your pharmacy: [ ] [ ] New medication written as a paper prescription [ X] No new medications given *Please follow up with your primary care provider in 2-3 days, call for an appointment. Let them know you were seen in the Emergency Department and that we ask that you be seen in follow up. We will electronically transmit a record of today's note if your PCP is in our system. You came in today with concern for bruising around her left eye after you were hit in the forehead yesterday by a cup flying through the air. After discussion and to fully evaluate we did do CT scan of your head and neck. These returned sign without evidence of fracture or any bleeding in your brain. I think given what happened and these imaging findings today likely you are going to be just fine however it is still important to monitor for any new or worsening symptoms over the next few days to weeks including vision changes headaches dizziness or other symptoms of concern. It may take awhile for your bruising to resolve and it could potentially worsen before it gets better. If you have concerns you can always get re-evaluated but I think it should be safe to travel later this week. *If you do not have a primary care provider please contact the [facility] Resource line at [phone]. They will ask some questions about your medical history and help get you set up with a doctor in the community. *Return to Emergency Department if you should have any new, worsening or concerning symptoms, such as [fever greater than 101 F, shaking chills, worsening pain, persistent vomiting or other bothersome symptoms] Prescriptions: No Action cholecalciferol (vitamin D3) 25 mcg (1,000 unit) capsule 25 mcg PO DAILY Hyaluronic Acid 1 tbsp PO DAILY Super B Complex 1 tab PO DAILY magnesium glycinate 100 mg tablet 400 mg PO .hs erythromycin 5 mg/gram (0.5 %) ointment 1 cm EYE-RIGHT QID Qty: 3.5 0RF sertraline 100 mg tablet 100 mg PO DAILY Qty: 90 4RF atenolol 50 mg tablet 50 mg PO BID Qty: 180 3RF (DME) Respironics Dreamstation CPAP Qty: 1 Dose Instruction: As directed Patient Comments: Pressure: 6-12 cmH2O DME: [facility] Rx Instructions: As directed Referrals: Edel Farah MD [Primary Care Provider] - Stand Alone Forms: Patient Portal/API ED Sign-out <Chance Gallardo MD - Last Filed: 11/05/23 07:26> Cosign ED Attending Cosignature Attestation: I was immediately available in the department for consultation. ?This documentation has been reviewed and I agree with assessment and plan. Supervised by Chance Gallardo MD
== END 2023-11-04 17:20 | disposition home or self-care (01) ==
PROVIDERS: Emergency Provider Student in an Organized Health Care Education/Training Program; PCP Family Medicine
DX: S09.90XA Unspecified injury of head, initial encounter (principal); S00.83XA Contusion of other part of head, initial encounter; W22.8XXA Striking against or struck by other objects, initial encounter
CPT/HCPCS: 70450; 72125; 99281; 99284

== ENCOUNTER 2024-07-07 12:14 | Inpatient (IN) | payer MEDICARE, OTHER, SELFPAY ==
[2024-07-07] VITALS (25 sets, daily range): BP systolic 131–210; BP diastolic 61–86; PULSE 47–63; RESP 13–33; TEMP 36.4–36.9; O2SAT 89–95; BMI 24.1
--- NOTE | 2024-07-07 12:20 | DI.RAD.S_ITS ---
PROCEDURE: XR PELVIS 1-2V INDICATIONS: fall left hip pain TECHNIQUE: AP view the pelvis acquired. COMPARISON: None. FINDINGS: Bones: Mildly displaced fracture of the left femoral neck. Pelvic bones and right proximal femur appear to be intact. Soft tissues: Visualized bowel gas pattern is normal. No suspicious soft tissue calcifications. IMPRESSION: Mildly displaced impacted fracture of the left femoral neck. Approved by: Tj Johnson M.D. on 07/07/2024 at 12:58
[2024-07-07] MEDS: MORPHINE 2 MG/ML INJ IV (12:36)
--- NOTE | 2024-07-07 12:58 | PC.NURSE ---
Patient o2 dropped to 88% on RA after pain medication. She was placed on 2 L NC. She 92% on RA
[2024-07-07 13:17] LABS: Add Manual Diff / Slide Review NO; Basophils Absolute Auto 0 /uL (0-100); Basophils Percent Auto 0.6 % (0-2); Eosinophils Absolute Auto 100 /uL (0-450); Hematocrit 42.4 % (36-46); Hemoglobin 14.3 g/dL (12.0-16.0); Lymphocytes Absolute Auto 1500 /uL (1100-4500); Lymphocytes Percent Auto 24.5 % (25-40); Mean Corpuscular HGB Conc 33.6 % (30-36); Mean Corpuscular Hemoglobin 31.8 PG (26-34); Mean Corpuscular Volume 94.7 fL (80-100); Monocytes Absolute Auto 600 /uL (0-900); Monocytes Percent Auto 9.6 % (3-14); Neutrophils Absolute Auto 3800 /uL (1500-7000); Neutrophils Percent Auto 63.3 % (50-75); Platelet Count 119 X10^3/uL (150-400); Red Blood Cell Count 4.48 X10^6/uL (4.0-5.2); Red Cell Distribution Width 13.4 % (11.6-14.8)
[2024-07-07 13:22] LABS: Alanine Aminotransferase 30 IU/L (<35); Albumin Globulin Ratio 1.4 (1.0-2.8); Alkaline Phosphatase 102 U/L (38-126); Aspartate Aminotransferase 56 IU/L (14-36); BUN Creatinine Ratio 23.4 (6-22); Blood Urea Nitrogen 15 mg/dL (7-17); Calcium 9.5 mg/dL (8.4-10.2); Carbon Dioxide 29 mmol/L (22-32); Chloride 106 mmol/L (98-107); Estimated Glomerular Filt Rate > 60 mL/min (>60); Globulin 2.9 g/dL (1.7-4.1); Glucose 123 mg/dL (80-110); HEMOLYSIS < 15 (0-50); Potassium 3.7 mmol/L (3.4-5.1); Sodium 140 mmol/L (137-145); Total Protein 6.9 g/dL (6.3-8.2)
[2024-07-07] MEDS: HYDROMORPHONE 0.5 MG INJ IV ×3 (13:22→16:46)
--- NOTE | 2024-07-07 13:42 | DI.RAD.S_ITS ---
PROCEDURE: XR HIP LT 1V INDICATIONS: hip fracture TECHNIQUE: Single cross-table lateral view of the hip acquired. COMPARISON: [facility], , XR PELVIS 1-2V, 07/07/2024, 12:18. FINDINGS: Bones: Displaced femoral neck fracture better demonstrated on AP radiographs. Soft tissues: No suspicious soft tissue calcifications. IMPRESSION: Left femoral neck fracture redemonstrated. Approved by: Tj Johnson M.D. on 07/07/2024 at 15:31
--- NOTE | 2024-07-07 14:29 | ED_ITS ---
HPI - Fall General Chief Complaint: Fall Stated Complaint: GLF,left hip pain,short/rotated Time Seen by Provider: 07/07/24 12:20 Source: patient Mode of arrival: EMS History of Present Illness HPI Narrative: Patient 83-year-old female history of hypertension presents today with left hip pain. She reports that she tripped over rug landing on her left side. She did not hit her head or lose consciousness. She has not on antiplatelet or anticoagulation medication. She was put in a pelvic binder by EMS. She was given fentanyl prior to arrival as well. No rib pain. She was dizzy or lightheaded no chest pain no other symptoms. Sounds as though it was a mechanical fall. Related Data Home Medications Medication Instructions Recorded Confirmed Respironics Dreamstation CPAP #1 ea 02/09/19 07/04/24 Hyaluronic Acid 1 tbsp PO DAILY 02/26/23 07/04/24 Super B Complex 1 tab PO DAILY 02/26/23 07/04/24 cholecalciferol (vitamin D3) 25 25 mcg PO DAILY 02/26/23 07/04/24 mcg (1,000 unit) capsule magnesium glycinate 100 mg (as 400 mg PO .hs 03/10/23 07/04/24 glycinate) tablet Ashwagandha PO 04/28/24 07/04/24 Previous Rx's Medication Instructions Recorded erythromycin 5 mg/gram (0.5 %) eye 1 cm EYE-RIGHT QID #3.5 grams 08/18/23 ointment atenolol 50 mg tablet 50 mg PO BID #180 tabs 09/10/23 sertraline 100 mg tablet 100 mg PO DAILY #90 tabs 04/12/24 Allergies Allergy/AdvReac Type Severity Reaction Status Date / Time Sulfa (Sulfonamide Allergy Unknown HIVES Verified 07/07/24 12:20 Antibiotics) [SULFA (SULFONAMIDE ANTIBIOTICS)] Patient History Medical History 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 Secondhand smoke exposure Excessive daytime sleepiness COVID-19 Cholelithiasis and acute cholecystitis without obstruction Easy bruisability Arthritis Chronic headaches Chronic back pain Depression Hayfever Hyperlipidemia Hypertension GERD (gastroesophageal reflux disease) Chronic sinusitis Overactive bladder Fragrance hypersensitivity Seasonal allergies Foot pain Ankle pain Surgical History History of dilation of urethra History of bladder suspension procedure Hx of cholecystectomy History of partial hysterectomy (1970) History of tonsillectomy and adenoidectomy (1947) History of repair of rectocele (2006) Hx of bladder repair surgery Hx of sinus surgery Hx of appendectomy (1952) Anesthesia Family History Father Bladder cancer Mother Breast cancer Sister Age: 90 Stage I breast cancer Brother Liver disease Hepatitis Son Addiction Unemployed Homeless Daughter Addiction Homeless Unemployed Social History marital status: number of children: 2 household members: none lives independently: Yes caregiver/support person: No housing: house occupational status: other Smoking Status: Never smoker second hand exposure: No alcohol intake: never substance use type: does not use caffeine: Yes Type(s) of exercise: none Smoking Status: Never smoker alcohol intake frequency: holidays/special occasions only Substance Use Type: does not use Exam Initial Vital Signs Initial Vital Signs: Vital Signs Temperature 97.5 F L 07/07/24 12:15 Pulse Rate 54 L 07/07/24 12:15 Respiratory Rate 13 07/07/24 12:15 Blood Pressure 189/81 H 07/07/24 12:15 Pulse Oximetry 92 07/07/24 12:15 Oxygen Delivery Method Room Air 07/07/24 12:15 GENERAL: Alert pleasant 83-year-old female HEENT: Head atraumatic,EOMI, pupils reactive, face symmetric, [moist] mucous membranes NECK: No vertebral tenderness no step-off CARDIOVASCULAR: Regular rate and rhythm without murmurs, rubs or gallops. RESPIRATORY: Breath sounds equal bilaterally, no wheezes rales or rhonchi. ABDOMEN: Soft, nontender. Normoactive bowel sounds all 4 quadrants. No guarding or rebound. EXTREMITIES: Normal range of motion, no clubbing or edema. Neurovascularly intact. Legs are of equal length distal pedal pulse intact tender left hip NEUROLOGICAL: Alert and oriented x4.Normal gait and speech. Cranial nerves II through XII grossly intact. SKIN: Warm, dry, no laceration, no petechiae, no rashes or lesions. Course Orders Ordered: ED Orders 07/07/24 12:20 XR pelvis 1-2V Stat 07/07/24 12:48 CBC Auto Diff [Complete Blood Count AUTO DIFF] Stat CMP [Comprehensive Metabolic Panel] Stat 07/07/24 13:42 XR hip LT 1V Stat Hydromorphone HCl (Hydromorphone 1 Mg Inj) 1 mg IV Q2H PRN PRN Reason: Pain, Severe (7-10) Last Admin: 07/07/24 18:40 Dose: 1 mg Documented By: LOKI Discontinued Medications Hydromorphone HCl (Hydromorphone 0.5 Mg Inj) 0.5 mg IV NOW ONE Stop: 07/07/24 13:21 Last Admin: 07/07/24 13:22 Dose: 0.5 mg Documented By: RUPALI Hydromorphone HCl (Hydromorphone 0.5 Mg Inj) 0.5 mg IV NOW ONE Stop: 07/07/24 14:33 Last Admin: 07/07/24 14:35 Dose: 0.5 mg Documented By: LOKI Hydromorphone HCl (Hydromorphone 0.5 Mg Inj) 0.5 mg IV NOW ONE Stop: 07/07/24 16:39 Last Admin: 07/07/24 16:46 Dose: 0.5 mg Documented By: HAROON Morphine Sulfate (Morphine 2 Mg/Ml Inj) 2 mg IV NOW ONE Stop: 07/07/24 12:30 Last Admin: 07/07/24 12:36 Dose: 2 mg Documented By: CAROLEE Vital Signs Vital signs: Vital Signs - 8 hr 07/07/24 12:15 07/07/24 12:17 07/07/24 12:17 Temperature 97.5 F L Pulse Rate 54 L 53 L Respiratory Rate 13 Blood Pressure 189/81 H 189/81 H Pulse Oximetry 92 92 Oxygen Delivery Method Room Air 07/07/24 12:29 07/07/24 12:31 07/07/24 12:41 Temperature Pulse Rate 55 L Respiratory Rate 18 Blood Pressure 162/72 H Pulse Oximetry 94 94 Oxygen Delivery Method Room Air 07/07/24 12:52 07/07/24 12:52 07/07/24 13:00 Temperature Pulse Rate 47 L 49 L Respiratory Rate 21 22 Blood Pressure 136/63 Pulse Oximetry 91 93 Oxygen Delivery Method 07/07/24 13:00 07/07/24 13:30 07/07/24 13:42 Temperature Pulse Rate 53 L 53 L Respiratory Rate 21 Blood Pressure 139/71 Pulse Oximetry 95 94 Oxygen Delivery Method 07/07/24 13:42 07/07/24 14:00 07/07/24 14:00 Temperature Pulse Rate 54 L Respiratory Rate 24 Blood Pressure 176/80 H 151/69 H Pulse Oximetry 95 Oxygen Delivery Method Room Air 07/07/24 14:30 07/07/24 14:31 07/07/24 14:31 Temperature Pulse Rate 54 L 53 L Respiratory Rate 25 H 24 Blood Pressure 143/74 H Pulse Oximetry 94 95 Oxygen Delivery Method 07/07/24 15:00 07/07/24 15:00 07/07/24 15:30 Temperature Pulse Rate 56 L 59 L Respiratory Rate 32 H 23 Blood Pressure 132/63 Pulse Oximetry 92 95 Oxygen Delivery Method 07/07/24 15:30 07/07/24 16:00 07/07/24 16:01 Temperature Pulse Rate 61 Respiratory Rate 24 Blood Pressure 139/61 181/83 H Pulse Oximetry 94 Oxygen Delivery Method 07/07/24 16:01 07/07/24 16:30 07/07/24 16:31 Temperature Pulse Rate 60 59 L 61 Respiratory Rate 23 26 H Blood Pressure Pulse Oximetry 92 93 93 Oxygen Delivery Method Room Air 07/07/24 16:31 Temperature Pulse Rate Respiratory Rate Blood Pressure 210/86 H Pulse Oximetry Oxygen Delivery Method MDM - Fall Lab Data 07/07/24 12:48 07/07/24 12:48 Labs: Lab Results 07/07/24 Range/Units 12:48 WBC 6.0 (4.5-11.0) X10^3/uL RBC 4.48 (4.0-5.2) X10^6/uL Hgb 14.3 (12.0-16.0) g/dL Hct 42.4 (36-46) % MCV 94.7 (80-100) fL MCH 31.8 (26-34) PG MCHC 33.6 (30-36) % RDW 13.4 (11.6-14.8) % Plt Count 119 L (150-400) X10^3/uL Neut % (Auto) 63.3 (50-75) % Lymph % (Auto) 24.5 L (25-40) % [place] % (Auto) 9.6 (3-14) % Eos % (Auto) 2.0 (2-4) % Baso % (Auto) 0.6 (0-2) % Neut # (Auto) 3800 (2766-0113) /uL Lymph # (Auto) 1500 (6716-8295) /uL [place] # (Auto) 600 (0-900) /uL Eos # (Auto) 100 (0-450) /uL Baso # (Auto) 0 (0-100) /uL Sodium 140 (137-145) mmol/L Potassium 3.7 (3.4-5.1) mmol/L Chloride 106 (98-107) mmol/L Carbon Dioxide 29 (22-32) mmol/L BUN 15 (7-17) mg/dL Creatinine 0.64 (0.52-1.04) mg/dL Estimated GFR > 60 (>60) mL/min BUN/Creatinine Ratio 23.4 H (6-22) Glucose 123 H (80-110) mg/dL Calcium 9.5 (8.4-10.2) mg/dL Total Bilirubin 2.0 H (0.2-1.3) mg/dL AST 56 H (14-36) IU/L ALT 30 (<35) IU/L Alkaline Phosphatase 102 (38-126) U/L Total Protein 6.9 (6.3-8.2) g/dL Albumin 4.0 (3.5-5.0) g/dL Globulin 2.9 (1.7-4.1) g/dL Albumin/Globulin Ratio 1.4 (1.0-2.8) Imaging Data Extremity x-ray #1: Radiologist's Impression: PROCEDURE: XR PELVIS 1-2V INDICATIONS: fall left hip pain TECHNIQUE: AP view the pelvis acquired. COMPARISON: None. FINDINGS: Bones: Mildly displaced fracture of the left femoral neck. Pelvic bones and right proximal femur appear to be intact. Soft tissues: Visualized bowel gas pattern is normal. No suspicious soft tissue calcifications. IMPRESSION: Mildly displaced impacted fracture of the left femoral neck. Approved by: Tj Johnson M.D. on 07/07/2024 at 12:58 Extremity x-ray #2: Radiologist's Impression: PROCEDURE: XR HIP LT 1V INDICATIONS: hip fracture TECHNIQUE: Single cross-table lateral view of the hip acquired. COMPARISON: [facility], , XR PELVIS 1-2V, 07/07/2024, 12:18. FINDINGS: Bones: Displaced femoral neck fracture better demonstrated on AP radiographs. Soft tissues: No suspicious soft tissue calcifications. IMPRESSION: Left femoral neck fracture redemonstrated. Approved by: Tj Johnson M.D. on 07/07/2024 at 15:31 MDM Narrative Medical decision making narrative: Patient is a 83-year-old female history of hypertension presenting today with mechanical ground level fall. She is found to have a femoral neck fracture on the left. Blood work is overall reassuring without leukocytosis or electrolyte abnormalities She does elevated bilirubin 2.0 but it does appear to run high in 2019 it was 1.9, previously was 1.7 liver enzymes are within normal limits X-ray confirms left femoral neck fracture Dr. Royal, updated symptoms test results admits patient Dr. Clifton updated hip fracture Patient is given Dilaudid for pain which does seem to help Discharge Plan Departure Patient Disposition: Admitted As Inpatient Clinical Impression: Closed hip fracture Admit Date/Time: 07/07/24 16:38 Admit Provider: Chad Royal
--- NOTE | 2024-07-07 15:07 | PM.HP.1 ---
History of Present Illness History of Present Illness Date Patient Seen: 07/07/24 Time Patient Seen: 15:08 Chief complaint: GLF,left hip pain,short/rotated Narrative: 83-year-old female who normally sees Dr. Edel Farah, who is admitted for hip fracture. She apparently tripped over something in her home landing on her left side. Had immediate onset of pain. EMS was summoned transported her to [facility] Emergency Department where imaging identified the left femoral neck fracture. Patient did not lose consciousness either before during or after. Has no head pain or neck pain. Did try to grab the railing in her home and has some bruising and scrapes along her right arm which took the force No other fracture noted on pelvic imaging Past history are fairly unremarkable. On medication for depression and hypertension FOR[facility]LY [facility], [facility] Medical History 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 Secondhand smoke exposure Excessive daytime sleepiness COVID-19 Cholelithiasis and acute cholecystitis without obstruction Easy bruisability Arthritis Chronic headaches Chronic back pain Depression Hayfever Hyperlipidemia Hypertension GERD (gastroesophageal reflux disease) Chronic sinusitis Overactive bladder Fragrance hypersensitivity Seasonal allergies Foot pain Ankle pain Surgical History History of dilation of urethra History of bladder suspension procedure Hx of cholecystectomy History of partial hysterectomy (1970) History of tonsillectomy and adenoidectomy (1946) History of repair of rectocele (2006) Hx of bladder repair surgery Hx of sinus surgery Hx of appendectomy (1952) Anesthesia Family History Father Bladder cancer Mother Breast cancer Sister Age: 90 Stage I breast cancer Brother Liver disease Hepatitis Son Addiction Unemployed Homeless Daughter Addiction Homeless Unemployed Social History marital status: number of children: 2 household members: family and none lives independently: Yes caregiver/support person: No housing: house occupational status: other Smoking Status: Never smoker second hand exposure: No alcohol intake: never substance use type: does not use caffeine: Yes Type(s) of exercise: none Meds Home Medications and Allergies Home Medications Medication Instructions Recorded Confirmed Type Respironics Dreamstation CPAP #1 ea 02/09/19 07/04/24 History Hyaluronic Acid 1 tbsp PO DAILY 02/26/23 07/04/24 History cholecalciferol (vitamin D3) 25 25 mcg PO BID 02/26/23 07/07/24 History mcg (1,000 unit) capsule atenolol 50 mg tablet 50 mg PO BID #180 tabs 09/10/23 07/07/24 Rx Ashwagandha PO 04/28/24 07/04/24 History sertraline 50 mg PO QPM 07/07/24 07/07/24 History Allergies Allergy/AdvReac Type Severity Reaction Status Date / Time Sulfa (Sulfonamide Allergy Unknown HIVES Verified 07/07/24 12:20 Antibiotics) [SULFA (SULFONAMIDE ANTIBIOTICS)] Review of Systems Review of Systems ROS: Yes All systems reviewed with the patient and are negative except as otherwise documented Exam Vital Signs (past 8 hours): - 07/07/24 12:15 Temperature 97.5 F L Pulse Rate 54 L Respiratory Rate 13 Blood Pressure 189/81 H Pulse Oximetry 92 Oxygen Delivery Method Room Air Oxygen Delivery Method Room Air Narrative Exam Narrative: Elderly female in no obvious distress lying on a gurney in the emergency department HEENT unremarkable, normocephalic atraumatic Lungs-clear anteriorly posteriorly Heart-regular rate and rhythm Abdomen-benign Objective Labs 07/07/24 12:48 07/07/24 12:48 Labs: Laboratory Results - last 24 hr 07/07/24 12:48 WBC 6.0 RBC 4.48 Hgb 14.3 Hct 42.4 MCV 94.7 MCH 31.8 MCHC 33.6 RDW 13.4 Plt Count 119 L Neut % (Auto) 63.3 Lymph % (Auto) 24.5 L [place] % (Auto) 9.6 Eos % (Auto) 2.0 Baso % (Auto) 0.6 Neut # (Auto) 3800 Lymph # (Auto) 1500 [place] # (Auto) 600 Eos # (Auto) 100 Baso # (Auto) 0 Sodium 140 Potassium 3.7 Chloride 106 Carbon Dioxide 29 BUN 15 Creatinine 0.64 Estimated GFR > 60 BUN/Creatinine Ratio 23.4 H Glucose 123 H Calcium 9.5 Total Bilirubin 2.0 H AST 56 H ALT 30 Alkaline Phosphatase 102 Total Protein 6.9 Albumin 4.0 Globulin 2.9 Albumin/Globulin Ratio 1.4 Assessment & Plan Assessment & Plan narrative: 1. Left femoral neck fracture-consult to Orthopedic surgery he had been made by the ER physician. Will need surgical intervention, and most likely residential placement postop. Continue with parental narcotics for pain management. 2. Hypertension-continue patient's atenolol for now. Somewhat hypertensive initially likely secondary to pain. 3. Depression-continue patient's usual sertraline 4. VTE prophylaxis-given upcoming surgery not a candidate for chemo prophylaxis at this point. SCDs as appropriate and then postoperative chemo prophylaxis 5. Code status-full code in the event of a sudden cardiac or respiratory arrest which is not anticipated by any means at this time 6. Ground level fall-patient with ground level falls sort of controlled but she fell with enough force to fracture hip. No evidence of neck or head injury either based on the mechanism of fall or with complaints afterwards. Do not believe this needs to be separately investigate it at this time anyway Time-Based Coding :: [TOTAL MINUTES] spent with patient and on the chart (including review of chart, obtaining history, exam, reviewing outside data, placing orders, documenting exam and treatment plan, and counseling patient) on [DATE]. PROFEE Charge Codes Initial inpatient/observation care: 96054
[2024-07-07] MEDS: HYDROMORPHONE 1 MG INJ IV ×2 (18:40→20:36)
--- NOTE | 2024-07-07 19:55 | PM.HP.1 ---
History of Present Illness History of Present Illness Date Patient Seen: 07/07/24 Time Patient Seen: 19:56 Date of Onset of Symptoms: 07/07/24 Chief complaint: GLF,left hip pain,short/rotated Narrative: She tripped and fell at home today and noted the acute onset of left hip pain. She was using shoes she does not normally use and she just tripped and fell. She notes significant pain into the left hip. She was unable to weightbear. She does have some history of some mild bilateral lower extremity numbness. She does not new note new numbness or weakness. She was not short of breath and did not have chest pain or other problems prior to the fall. [facility] Medical History 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 Secondhand smoke exposure Excessive daytime sleepiness COVID-19 Cholelithiasis and acute cholecystitis without obstruction Easy bruisability Arthritis Chronic headaches Chronic back pain Depression Hayfever Hyperlipidemia Hypertension GERD (gastroesophageal reflux disease) Chronic sinusitis Overactive bladder Fragrance hypersensitivity Seasonal allergies Foot pain Ankle pain Surgical History History of dilation of urethra History of bladder suspension procedure Hx of cholecystectomy History of partial hysterectomy (1970) History of tonsillectomy and adenoidectomy (1946) History of repair of rectocele (2006) Hx of bladder repair surgery Hx of sinus surgery Hx of appendectomy (1952) Anesthesia Family History Father Bladder cancer Mother Breast cancer Sister Age: 90 Stage I breast cancer Brother Liver disease Hepatitis Son Addiction Unemployed Homeless Daughter Addiction Homeless Unemployed Social History marital status: number of children: 2 household members: none lives independently: Yes caregiver/support person: No housing: house occupational status: other Smoking Status: Never smoker second hand exposure: No alcohol intake: never substance use type: does not use caffeine: Yes Type(s) of exercise: none Meds Home Medications and Allergies Home Medications Medication Instructions Recorded Confirmed Type Respironics Dreamstation CPAP #1 ea 02/09/19 07/04/24 History Hyaluronic Acid 1 tbsp PO DAILY 02/26/23 07/04/24 History Super B Complex 1 tab PO DAILY 02/26/23 07/04/24 History cholecalciferol (vitamin D3) 25 25 mcg PO DAILY 02/26/23 07/04/24 History mcg (1,000 unit) capsule magnesium glycinate 100 mg (as 400 mg PO .hs 03/10/23 07/04/24 History glycinate) tablet erythromycin 5 mg/gram (0.5 %) eye 1 cm EYE-RIGHT QID #3.5 grams 08/18/23 07/04/24 Rx ointment atenolol 50 mg tablet 50 mg PO BID #180 tabs 09/10/23 07/04/24 Rx sertraline 100 mg tablet 100 mg PO DAILY #90 tabs 04/12/24 07/04/24 Rx Ashwagandha PO 04/28/24 07/04/24 History Allergies Allergy/AdvReac Type Severity Reaction Status Date / Time Sulfa (Sulfonamide Allergy Unknown HIVES Verified 07/07/24 12:20 Antibiotics) [SULFA (SULFONAMIDE ANTIBIOTICS)] Review of Systems Review of Systems Narrative: She lives independently. She has been healthy she did not have prior problems with her left hip. Bilateral leg numbness. She has not a diabetic. Exam Vital Signs (past 8 hours): - 07/07/24 12:15 07/07/24 12:17 07/07/24 12:17 Temperature 97.5 F L Pulse Rate 54 L 53 L Respiratory Rate 13 Blood Pressure 189/81 H 189/81 H Pulse Oximetry 92 92 Oxygen Delivery Method Room Air Oxygen Flow Rate 07/07/24 12:29 07/07/24 12:31 07/07/24 12:41 Temperature Pulse Rate 55 L Respiratory Rate 18 Blood Pressure 162/72 H Pulse Oximetry 94 94 Oxygen Delivery Method Room Air Oxygen Flow Rate 07/07/24 12:52 07/07/24 12:52 07/07/24 13:00 Temperature Pulse Rate 47 L 49 L Respiratory Rate 21 22 Blood Pressure 136/63 Pulse Oximetry 91 93 Oxygen Delivery Method Oxygen Flow Rate 07/07/24 13:00 07/07/24 13:30 07/07/24 13:42 Temperature Pulse Rate 53 L 53 L Respiratory Rate 21 Blood Pressure 139/71 Pulse Oximetry 95 94 Oxygen Delivery Method Oxygen Flow Rate 07/07/24 13:42 07/07/24 14:00 07/07/24 14:00 Temperature Pulse Rate 54 L Respiratory Rate 24 Blood Pressure 176/80 H 151/69 H Pulse Oximetry 95 Oxygen Delivery Method Room Air Oxygen Flow Rate 07/07/24 14:30 07/07/24 14:31 07/07/24 14:31 Temperature Pulse Rate 54 L 53 L Respiratory Rate 25 H 24 Blood Pressure 143/74 H Pulse Oximetry 94 95 Oxygen Delivery Method Oxygen Flow Rate 07/07/24 15:00 07/07/24 15:00 07/07/24 15:30 Temperature Pulse Rate 56 L 59 L Respiratory Rate 32 H 23 Blood Pressure 132/63 Pulse Oximetry 92 95 Oxygen Delivery Method Oxygen Flow Rate 07/07/24 15:30 07/07/24 16:00 07/07/24 16:01 Temperature Pulse Rate 61 Respiratory Rate 24 Blood Pressure 139/61 181/83 H Pulse Oximetry 94 Oxygen Delivery Method Oxygen Flow Rate 07/07/24 16:01 07/07/24 16:30 07/07/24 16:31 Temperature Pulse Rate 60 59 L 61 Respiratory Rate 23 26 H Blood Pressure Pulse Oximetry 92 93 93 Oxygen Delivery Method Room Air Oxygen Flow Rate 07/07/24 16:31 07/07/24 17:00 07/07/24 17:01 Temperature Pulse Rate 63 63 Respiratory Rate 33 H 26 H Blood Pressure 210/86 H Pulse Oximetry 89 L 92 Oxygen Delivery Method Room Air Oxygen Flow Rate 07/07/24 17:01 07/07/24 17:30 07/07/24 17:30 Temperature Pulse Rate 60 Respiratory Rate 27 H Blood Pressure 142/63 H 137/65 Pulse Oximetry 92 Oxygen Delivery Method Oxygen Flow Rate 07/07/24 18:00 07/07/24 18:00 07/07/24 18:30 Temperature Pulse Rate 62 62 Respiratory Rate 29 H 21 Blood Pressure 158/66 H Pulse Oximetry 92 93 Oxygen Delivery Method Nasal Cannula Oxygen Flow Rate 2 07/07/24 18:30 07/07/24 19:00 07/07/24 19:00 Temperature Pulse Rate 63 Respiratory Rate 20 Blood Pressure 161/77 H 131/67 Pulse Oximetry 94 Oxygen Delivery Method Room Air Oxygen Flow Rate Oxygen Delivery Method Room Air Oxygen Flow Rate 2 Narrative Exam Narrative: HEENT is benign she is alert she is oriented she is a little hard of hearing work she is very pleasant and interactive. Cor regular rate and rhythm lungs clear, abdomen soft and benign, left lower extremity foreshortened left leg, not pain with even gentle range of motion of the left leg, her knee benign, calf soft distally, able to fire her toe flexors and extensors with some mild bilateral lower extremity numbness Objective Labs 07/07/24 12:48 07/07/24 12:48 Labs: Laboratory Results - last 24 hr 07/07/24 12:48 WBC 6.0 RBC 4.48 Hgb 14.3 Hct 42.4 MCV 94.7 MCH 31.8 MCHC 33.6 RDW 13.4 Plt Count 119 L Neut % (Auto) 63.3 Lymph % (Auto) 24.5 L [place] % (Auto) 9.6 Eos % (Auto) 2.0 Baso % (Auto) 0.6 Neut # (Auto) 3800 Lymph # (Auto) 1500 [place] # (Auto) 600 Eos # (Auto) 100 Baso # (Auto) 0 Sodium 140 Potassium 3.7 Chloride 106 Carbon Dioxide 29 BUN 15 Creatinine 0.64 Estimated GFR > 60 BUN/Creatinine Ratio 23.4 H Glucose 123 H Calcium 9.5 Total Bilirubin 2.0 H AST 56 H ALT 30 Alkaline Phosphatase 102 Total Protein 6.9 Albumin 4.0 Globulin 2.9 Albumin/Globulin Ratio 1.4 X-rays showed a displaced left femoral neck fracture. No significant arthritic change Assessment & Plan Assessment and plan (1) Closed hip fracture: Status: Acute Plan I have recommended a left hip cemented unipolar. There is space available in the operating room tomorrow for Dr. Hernandes. I discussed with the patient briefly with him and he said he would be happy to proceed with surgical fixation of her left hip fracture. Her granddaughter is at bedside. We discussed the fracture, treatment options risks benefits and complications among going to work on getting her scheduled for tomorrow. She can have a regular diet until midnight and then be NPO past midnight. Time-Based Coding :: [TOTAL MINUTES] spent with patient and on the chart (including review of chart, obtaining history, exam, reviewing outside data, placing orders, documenting exam and treatment plan, and counseling patient) on [DATE].
[2024-07-07] MEDS: atenoloL 50 MG TABLET PO (21:49)
--- NOTE | 2024-07-07 22:29 | PC.RNWOUND ---
Right forearm skin tear d/t fall. Scabbed, 0 drainage.
[2024-07-08] VITALS (17 sets, daily range): BP systolic 103–170; BP diastolic 46–83; PULSE 55–88; RESP 14–18; TEMP 36.4–37; O2SAT 92–100; BMI 23.8
--- NOTE | 2024-07-08 | DI.RAD.S_ITS ---
PROCEDURE: XR HIP W PEL IF DONE LT 2V INDICATIONS: POST OP LEFT HIP TECHNIQUE: AP pelvis and lateral view of the hip acquired. COMPARISON: None. FINDINGS: Bones: Patient is status post left hip arthroplasty, with hardware components in expected positions. The hip joint appears congruent. The visualized bony structures appear intact. Soft tissues: Overlying postoperative changes are noted. No suspicious soft tissue densities. IMPRESSION: Expected post-operative appearance of a hip arthroplasty. Dictated by: Efrain Posadas M.D. on 07/08/2024 at 15:27 Approved by: Efrain Posadas M.D. on 07/08/2024 at 15:28
[2024-07-08] MEDS: HYDROMORPHONE 1 MG INJ IV ×3 (03:18→09:43)
--- NOTE | 2024-07-08 05:11 | PC.ADMIT ---
Addendum entered by Anisha Lora R.N. 07/08/24 07:01: Unable to do skin check on buttocks d/t pain with movement. Original Note: [email or web address] Admission Note: Patient admitted to ACU at 20:11 from ED. Sotomayor placed in ED. The patient,Mary Lan,83 y/o, was given written information regarding hospital policies, unit procedures and contact persons. Patient's smoking status: Never smoker. Vital Signs - 8 hr 07/08/24 02:00 Temperature 97.9 F Pulse Rate 63 Respiratory Rate 14 Blood Pressure 130/79 Pulse Oximetry 93 Oxygen Flow Rate 4
--- NOTE | 2024-07-08 07:32 | P.PN_ITS ---
Subjective Subjective Date Patient Seen: 07/08/24 Time Patient Seen: 07:32 Interval history: Patient with uneventful night. Blood pressure some better. Seen by Dr. Clifton last evening. Plan for repair with a left hip cemented unipolar via Dr. Hernandes later today. Patient is NPO currently for this procedure Says she did not sleep well last night however. Pain is much better controlled she says though. Would like just to have surgery and get it over with Exam Vital Signs (past 8 hours): - 07/08/24 02:00 Temperature 97.9 F Pulse Rate 63 Respiratory Rate 14 Blood Pressure 130/79 Pulse Oximetry 93 Oxygen Flow Rate 4 Oxygen Delivery Method Room Air Oxygen Flow Rate 4 Objective Labs 07/07/24 12:48 07/07/24 12:48 Labs: Laboratory Results - last 24 hr 07/07/24 12:48 WBC 6.0 RBC 4.48 Hgb 14.3 Hct 42.4 MCV 94.7 MCH 31.8 MCHC 33.6 RDW 13.4 Plt Count 119 L Neut % (Auto) 63.3 Lymph % (Auto) 24.5 L [place] % (Auto) 9.6 Eos % (Auto) 2.0 Baso % (Auto) 0.6 Neut # (Auto) 3800 Lymph # (Auto) 1500 [place] # (Auto) 600 Eos # (Auto) 100 Baso # (Auto) 0 Sodium 140 Potassium 3.7 Chloride 106 Carbon Dioxide 29 BUN 15 Creatinine 0.64 Estimated GFR > 60 BUN/Creatinine Ratio 23.4 H Glucose 123 H Calcium 9.5 Total Bilirubin 2.0 H AST 56 H ALT 30 Alkaline Phosphatase 102 Total Protein 6.9 Albumin 4.0 Globulin 2.9 Albumin/Globulin Ratio 1.4 PFSH Medical History 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 Secondhand smoke exposure Excessive daytime sleepiness COVID-19 Cholelithiasis and acute cholecystitis without obstruction Easy bruisability Arthritis Chronic headaches Chronic back pain Depression Hayfever Hyperlipidemia Hypertension GERD (gastroesophageal reflux disease) Chronic sinusitis Overactive bladder Fragrance hypersensitivity Seasonal allergies Foot pain Ankle pain Surgical History History of dilation of urethra History of bladder suspension procedure Hx of cholecystectomy History of partial hysterectomy (1970) History of tonsillectomy and adenoidectomy (1947) History of repair of rectocele (2006) Hx of bladder repair surgery Hx of sinus surgery Hx of appendectomy (1952) Anesthesia Family History Father Bladder cancer Mother Breast cancer Sister Age: 90 Stage I breast cancer Brother Liver disease Hepatitis Son Addiction Unemployed Homeless Daughter Addiction Homeless Unemployed Social History marital status: number of children: 2 household members: family and none lives independently: Yes caregiver/support person: No housing: house occupational status: other Smoking Status: Never smoker second hand exposure: No alcohol intake: never substance use type: does not use caffeine: Yes Type(s) of exercise: none Assessment & Plan Assessment & Plan narrative: 1. Left femoral neck fracture-to be surgically repaired presumably later today. Care per Orthopedic surgery. Patient currently NPO and I will add some D5 IV fluids 2. Hypertension-adequate control for now. Patient minimally bradycardic at times because of the beta-minerva. Okay to continue with the atenolol as long as heart rate is greater than 49 3. Depression-continue usual meds 4. Disposition-depending on patient's postoperative course seems likely she will need least temporary placement that is longterm Time-Based Coding :: [TOTAL MINUTES] spent with patient and on the chart (including review of chart, obtaining history, exam, reviewing outside data, placing orders, documenting exam and treatment plan, and counseling patient) on [DATE]. PROFEE Charge codes Subsequent inpatient/observation care: 29989
--- NOTE | 2024-07-08 09:10 | CM.DANOTE ---
DCP Assessment Note: Pt is a 83yo female, resident of [place], is admitted for a closed L hip fx after a GLF. Pt lives in a house with her granddaughter, Thania (ph#[phone]). Pt's Primary Care Provider is Dr. Shikha Farah MD and insurance is Medicare and [facility]. Reviewed chart and team rounds for pt's medical status and initial discharge needs. DCP met w/patient at bedside; introduced self and role. Present in the room is pt's granddaughter. Patient was found in bed, alert and oriented, cooperative with assessment. Pt confirmed living situation and good support in local family. Pt expressed preference in surgery and understands that a temporary stay at a SNF Rehab might be recommended following the surgery. Pt has no hx of SNF Rehab or Home health. Pt agreeable to working with therapies and following their recommendations. Pt stated a preference for [facility] or a SNF Rehab closest to [place] ([place] or [place]). Plan: Surgery scheduled for today, Awaiting PT/OT evaluations and recommendation for evolving discharge plans, anticipating SNF Rehab before safe discharge home. CM team will follow closely for coordination of discharge plans. CINTHYA Lee Discharge Planning/Care Management CM Discharge Assessment Start: 07/08/24 08:50 Freq: Status: Active Protocol: Document 07/08/24 08:51 MW (Rec: 07/08/24 08:54 MW [id number]) Discharge Planning Assessment Assigned Diabetes Territory Manager RIDGE Santiago DPJAKUB/Assigned Designee Name AMEYA Oneil/Friend Contact Information [phone] Advance Directives? Yes Advance Directives on File No History Provided By Patient,Family Member,Medical Record Has Patient been admitted in last 30 No days? Prior Living Arrangements House Household Members family,none Comment Lives with granddaughter, Thania. Type of transporation used prior to Drives own vehicle admit Independent with ADL's Yes Is patient alert and oriented? Yes Caregiver for Another No Patient/Family Preference Detention Facility Comment [facility] or another facility in [place]. Barriers to Discharge No Discharge Plan Detention Facility Transportation Arrangement Pending facility acceptance Referrals Initiated Detention Medicare Choice List Provided Yes Medicare choice list reviewed on patient,family electronic tablet with SNF/HH Preference [facility] Has Agency SNF been contacted No Review Status In Process Please Provide Date Initial DC 07/08/24 Assessment Was Performed Next Review Type Continued Stay Review
[2024-07-08] MEDS: CHOLECALCIFEROL (VITAMIN D3) 1,000 UNIT TABLET 1000 UNIT PO (09:43)
[2024-07-08] MEDS: atenoloL 50 MG TABLET PO ×2 (09:43→20:31)
--- NOTE | 2024-07-08 09:48 | EKG_ITS ---
[facility] [address] [place] [address] Test Date: 2024-07-08 Pat Name: Mary Lan Department: [facility] Room: 206 Gender: Female Registered Nurse Surgical Services: : 1940 Requested By: Order Number: [id number] Reading MD: Chad Royal MD Measurements Intervals [place] Rate: 62 P: 71 WI: 136 QRS: 0 QRSD: 82 T: 32 QT: 408 QTc: 414 Interpretive Statements Normal sinus rhythm Nonspecific ST and T wave abnormality Electronically Signed On 07-08-2024 14:51:24 PST by Chad Royal MD
[2024-07-08] MEDS: DEXTROSE 5%-0.45NS W/KCL 20MEQ 1,000 ML 80 MEQ IV (10:50)
[2024-07-08] MEDS: ACETAMINOPHEN 325 MG TABLET 975 MG PO (11:44)
[2024-07-08] MEDS: LACTATED RINGERS 1,000 ML 42 ML IV ×2 (11:47→13:21)
--- NOTE | 2024-07-08 12:05 | PM.PREOP ---
Pre-operative Note Interval Note History & Physical reviewed/Exam performed by Physician: Yes Changes to H&P: No
[2024-07-08] MEDS: CEFAZOLIN 2 GM/100 ML PREMIX 100 ML IV (12:45)
[2024-07-08] MEDS: TRANEXAMIC ACID 1,000 MG in SODIUM CHLORIDE 0.9% 100 ML 200 MG IV (13:00)
[2024-07-08] MEDS: SODIUM CHLORIDE IRRIG SOLUTION 250 ML, EPINEPHrine 1 MG IRR (13:03)
--- NOTE | 2024-07-08 13:09 | SUR.OPER ---
Lazy lateral, head on pillow, gel axillary roll in place, bottom leg bent with gel pad under knee to foot, upper leg undraped, supported by padded jenkins. Upper arm supported by pillows and secured over bottom arm secured to padded arm board. Tape over blanket over lower legs. Upper body maverick hugger in place.
[2024-07-08] MEDS: BUPIVACAINE 0.25% (PF) 30 ML, EPINEPHrine 0.15 MG INJ (13:53)
[2024-07-08] MEDS: BUPIVACAINE LIPOSOME 266 MG/20 ML VIAL INJ (13:53)
--- NOTE | 2024-07-08 14:07 | P.OP_ITS ---
Operative Date/Time/Diagnoses Date of procedure: 07/08/24 Time of procedure: 14:08 Pre-op diagnosis: Left femoral neck fracture Post-op diagnosis: same Procedure & Clinicians Procedure: Left hip hemiarthroplasty Same procedure as scheduled: Yes Indications: Indication: This is a 83-year- old female with a left femoral neck fracture. We discussed that in order to decrease the risk of avascular necrosis, fracture nonunion fracture malunion and to increase the ability to weightbear early, and increase overall health outcomes, we recommend hip hemiarthroplasty. The risks and benefits of surgery were discussed in detail including the risk for infection, damage to internal structures, bleeding, hardware failure, femur fracture, need for future surgery, dislocation, and risks of anesthesia. They accepted all the risks and expressed understanding and wished to go forward with surgery. Surgeon: Steven Hernandes Director Of Automation: Elvira Franco Operative Notes Findings: Left hip femoral neck fracture as seen under preoperative imaging and direct visualization Closure Type: primary Specimen(s): none sent Prosthetic devices, grafts, tissues, transplants, or devices: Implants Cl[employer]ton [employer] Synergy cemented stem size 10 Distal post centralizer Cement restrictor +0 12/14 taper sleeve Unipolar head size 45 Estimated Blood Loss (mL): 100 Blood products transfused: none Procedure in detail: Description: Patient was identified in the preoperative holding area. The correct left hip was marked with my initials. Risks were again discussed. The patient was then brought to the operating room. A surgical pause was done confirming the correct site of surgery. The patient was given perioperative IV antibiotics followed by induction of general anesthesia. Patient was placed in the lateral decubitus position with hip technical clerk positioners. An axillary roll was placed. The left hip and lower extremity were then prepped and draped in a standard sterile fashion. Posterolateral skin incision was made centered over the greater trochanter. Dissection was carried down to the fascia griselda and a Kenney was used to define the plane of tissue. The fascia was then incised in line with the skin incision over the greater trochanter. A Charnley retractor was placed. The trochanter bursa was then resected. The leg was internally rotated and the capsule and short external rotators were put on tension. They were then released in line with the piriformis tendon as a single sleeve in an L-shaped fashion and this was tagged with a #5 Ethibond suture for later repair. The upper part of the quadratus femoris insertion on the femur was released. The hip was then dislocated. With the thigh parallel to the ground and the leg perpendicular to the ground at 90?, a femoral neck cut was done and then the femoral head was removed from the acetabulum. A Sood retractor was placed under the neck, and a narrow Cobra was placed into the lesser trochanter. The SPIRIT Navigation cutter and canal Finder were then used followed by the lateralizer. Broaching was commenced. Trialing was then done and the hip was felt to be stable. Once satisfactory sizing was confirmed a centralized plug was inserted and the canal was lavaged and dried. Cement was inserted and pressurized. The final implant was then inserted with just a few degrees of additional anteversion from the sauk-suiattle version. Retrialing was done and the final bipolar head/neck construct was inserted. The hip was again taken through range of motion. Implant was stable at 90? of hip flexion all the way to 60? of internal rotation. Leg lengths were equal based on tibial tubercle palpation. The wounds were irrigated. Capsule was repaired through 2 drill holes in the greater trochanter. Fascia was closed with #2 Quill and then the subcutaneous tissue was closed with Vicryl followed by skin amilcar and sterile dressings. Patient tolerated the procedure well without complications. Assisting participation: This operation could not have been safely performed (without compromising the technical results or length of the procedure) without the assistance of a skilled neurosurgical physician assistant. The neurosurgical physician assistant was medically necessary for proper positioning, retraction and handlingof instruments, proper exposure, and manipulation of tissue. Complications: none Post-operative Condition: stable Disposition: PACU Plan for aftercare: Postop instructions: Patient may weightbear as tolerated on postoperative day 1. Hip precautions to remain in place. No flexion adduction and internal rotation. Patient may shower over the dressing. If water gets underneath the dressing, please remove the dressing completely and ensure that the incision is completely dry. Otherwise, the dressing will come off on at the 1st postoperative visit in 2 weeks. I recommend aspirin, 81 mg b.i.d. for 4 weeks unless they are already on an anticoagulant or aspirin is not tolerated, if this is the case then Lovenox 40 mg subcutaneous for 4 weeks can be used for DVT prophylaxis.
[2024-07-08] MEDS: ACETAMINOPHEN 325 MG TABLET 650 MG PO (19:42)
[2024-07-08] MEDS: OXYCODONE 5 MG/5 ML ORAL SOLUTION 10 MG PO (20:29)
[2024-07-08] MEDS: SERTRALINE 50 MG TABLET 100 MG PO (20:31)
[2024-07-08] MEDS: CEFAZOLIN VIAL 1 GM in SODIUM CHLORIDE 0.9% 100 ML IV (20:35)
[2024-07-09] MEDS: ACETAMINOPHEN 325 MG TABLET 650 MG PO ×3 (03:43→20:18)
[2024-07-09] MEDS: OXYCODONE 5 MG/5 ML ORAL SOLUTION 10 MG PO ×2 (03:45→08:38)
[2024-07-09] MEDS: DEXTROSE 5%-0.45NS W/KCL 20MEQ 1,000 ML 80 MEQ IV (05:04)
[2024-07-09] MEDS: CEFAZOLIN VIAL 1 GM in SODIUM CHLORIDE 0.9% 100 ML IV (05:04)
[2024-07-09 07:40] VITALS: O2SAT 94
[2024-07-09 08:00] VITALS: BP 121/61; PULSE 60; RESP 18; TEMP 36.3; O2SAT 92
[2024-07-09] MEDS: atenoloL 50 MG TABLET PO ×2 (08:38→20:16)
[2024-07-09] MEDS: CHOLECALCIFEROL (VITAMIN D3) 1,000 UNIT TABLET 1000 UNIT PO (08:38)
--- NOTE | 2024-07-09 08:54 | PM.PNPO.1 ---
Subjective Subjective Date Patient Seen: 07/09/24 Time Patient Seen: 08:54 Interval history: Patient having moderate left hip pain. No fever or chills. No shortness of breath or chest pain. Patient has not yet been out of bed since surgery. Exam Vital Signs (past 8 hours): - 07/09/24 08:00 Temperature 97.4 F L Pulse Rate 60 Respiratory Rate 18 Blood Pressure 121/61 Pulse Oximetry 92 Fraction of Inspired Oxygen 36 SaO2/FiO2 Ratio 269 Oxygen Delivery Method Nasal Cannula Oxygen Flow Rate 4 Narrative Exam Narrative: 83-year-old female resting in bed having breakfast in no apparent distress. Left hip dressing is clean, dry and intact. Neurovascular status is intact bilateral lower extremities. Const General: cooperative and comfortable Nutritional Appearance: average body habitus Orientation: alert Resp Effort & Inspection: normal respiratory effort and able to speak in complete sentences Objective Labs 07/07/24 12:48 07/07/24 12:48 PFSH Medical History 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 Secondhand smoke exposure Excessive daytime sleepiness COVID-19 Cholelithiasis and acute cholecystitis without obstruction Easy bruisability Arthritis Chronic headaches Chronic back pain Depression Hayfever Hyperlipidemia Hypertension GERD (gastroesophageal reflux disease) Chronic sinusitis Overactive bladder Fragrance hypersensitivity Seasonal allergies Foot pain Ankle pain Surgical History History of dilation of urethra History of bladder suspension procedure Hx of cholecystectomy History of partial hysterectomy (1970) History of tonsillectomy and adenoidectomy (1946) History of repair of rectocele (2006) Hx of bladder repair surgery Hx of sinus surgery Hx of appendectomy (1952) Anesthesia Family History Father Bladder cancer Mother Breast cancer Sister Age: 90 Stage I breast cancer Brother Liver disease Hepatitis Son Addiction Unemployed Homeless Daughter Addiction Homeless Unemployed Social History marital status: number of children: 2 household members: family and none lives independently: Yes caregiver/support person: No housing: house occupational status: other Smoking Status: Never smoker second hand exposure: No alcohol intake: never substance use type: does not use caffeine: Yes Type(s) of exercise: none Assessment & Plan Post-op Postoperative Procedures: Procedures Operation Date: 07/08/24 12:30 Actual Procedure Side Surgeon p Left Hip Unipolar Left Steven Hernandes MD Postoperative day: 1 Postoperative status: doing well Postoperative plan narrative: Patient may weight bear as tolerated on postoperative day 1. Hip precautions to remain in place. No flexion adduction and internal rotation. Patient may shower over the dressing. If water gets underneath the dressing, please remove the dressing completely and ensure that the incision is completely dry. Otherwise, the dressing will come off on at the 1st postoperative visit in 2 weeks. I recommend aspirin, 81 mg b.i.d. for 4 weeks unless they are already on an anticoagulant or aspirin is not tolerated, if this is the case then Lovenox 40 mg subcutaneous for 4 weeks can be used for DVT prophylaxis.
--- NOTE | 2024-07-09 10:41 | P.PN_ITS ---
Subjective Subjective Date Patient Seen: 07/09/24 Time Patient Seen: 10:41 Interval history: Pt seen with granddaughter at bedside s/p uncomplicated left hip hemiarthroplasty yesterday afternoon. Reports moderate post-op discomfort, hasn't been out of bed yet and waiting for PT to come by and work with her. Family expresses desire for her to go to acute rehab in [place] if possible. Exam Vital Signs (past 8 hours): - 07/09/24 08:00 Temperature 97.4 F L Pulse Rate 60 Respiratory Rate 18 Blood Pressure 121/61 Pulse Oximetry 92 Fraction of Inspired Oxygen 36 SaO2/FiO2 Ratio 269 Oxygen Delivery Method Nasal Cannula Oxygen Flow Rate 4 Narrative Exam Narrative: General: Pleasant, NAD HEENT: NC/AT, EOMI, moist membranes CV: RRR, normal S1-S2, no m/g/r Resp: CTAB, comfortable WOB Abd: Soft, NTND, +BS Ext: Wound dressing over L lateral hip/thigh c/d/i Skin: No rash or lesions noted Neuro: A&O x3, moves all extremities, no focal deficits Objective Labs 07/07/24 12:48 07/07/24 12:48 [facility] Medical History 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 Secondhand smoke exposure Excessive daytime sleepiness COVID-19 Cholelithiasis and acute cholecystitis without obstruction Easy bruisability Arthritis Chronic headaches Chronic back pain Depression Hayfever Hyperlipidemia Hypertension GERD (gastroesophageal reflux disease) Chronic sinusitis Overactive bladder Fragrance hypersensitivity Seasonal allergies Foot pain Ankle pain Surgical History History of dilation of urethra History of bladder suspension procedure Hx of cholecystectomy History of partial hysterectomy (1970) History of tonsillectomy and adenoidectomy (1946) History of repair of rectocele (2006) Hx of bladder repair surgery Hx of sinus surgery Hx of appendectomy (1952) Anesthesia Family History Father Bladder cancer Mother Breast cancer Sister Age: 90 Stage I breast cancer Brother Liver disease Hepatitis Son Addiction Unemployed Homeless Daughter Addiction Homeless Unemployed Social History marital status: number of children: 2 household members: family and none lives independently: Yes caregiver/support person: No housing: house occupational status: other Smoking Status: Never smoker second hand exposure: No alcohol intake: never substance use type: does not use caffeine: Yes Type(s) of exercise: none Assessment & Plan Assessment & Plan narrative: 83-year-old female with hypertension and depression admitted for left femoral neck fracture after ground level fall at home. #closed left femoral neck fracture Postop day #1 after left hemiarthroplasty. -pain scale -ASA 81 mg b.i.d. x4 weeks for DVT ppx per ortho recs -PT consulted for postop recovery #hypertension -atenolol 50 mg b.i.d. #depression -sertraline 100 mg daily Diet: Regular DVT ppx: Aspirin Code: Full PCP: Sofi Dispo: Likely acute rehab tomorrow Time-Based Coding :: 20 minutes spent with patient and on the chart (including review of chart, obtaining history, exam, reviewing outside data, placing orders, documenting exam and treatment plan, and counseling patient) on 07/09/2024. PROFEE Charge codes Subsequent inpatient/observation care: [id number]
[2024-07-09 12:00] VITALS: BP 116/65; PULSE 63; RESP 18; TEMP 36.9; O2SAT 94
[2024-07-09] MEDS: IBUPROFEN 400 MG TABLET PO (13:53)
[2024-07-09] MEDS: ASPIRIN EC 81 MG TABLET PO ×2 (13:54→20:17)
--- NOTE | 2024-07-09 14:55 | PT.IIE ---
Current Diagnoses Fracture of unspecified part of neck of left femur, initial encounter for closed fracture (07/07/24) Fracture of unspecified part of neck of unspecified femur, initial encounter for closed fracture (07/07/24) Surgery Performed Operation Date: 07/08/24 12:30 Actual Procedures p Left Hip Unipolar(Left) - Steven Hernandes MD Surgical History (Last Reviewed 07/09/24 @ 08:55 by Horace Diaz PA-C) Anesthesia History of bladder suspension procedure History of dilation of urethra History of partial hysterectomy (1970) History of repair of rectocele (2006) History of tonsillectomy and adenoidectomy (1946) Hx of appendectomy (1952) Hx of bladder repair surgery Hx of cholecystectomy Hx of sinus surgery Medical History Ankle pain Arthritis Cholelithiasis and acute cholecystitis without obstruction Chronic back pain Chronic headaches Chronic sinusitis COVID-19 Depression Easy bruisability Excessive daytime sleepiness Foot pain Fragrance hypersensitivity GERD (gastroesophageal reflux disease) Hayfever Hyperlipidemia Hypertension Overactive bladder 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 Seasonal allergies Secondhand smoke exposure Physical Therapy Inpatient Evaluation/Re-Eval M1 PT/OT-IP Prior Functional Status Start: 07/09/24 16:50 Freq: NEEDED Status: Active Protocol: Document 07/09/24 14:55 AB (Rec: 07/09/24 17:05 [id number]) Medical Review Prior Functional Status Medical History Reviewed Yes Communication with confusion but able to follow one step directions Mobility and Gait pt stated that she was independent with all mobilities and ambulation without AD Social History Household Members family Living Arrangements House Number of Floors (Floors) Two Floors Number of Stairs To Enter/Railing? 6 steps B rails to enter pt stays on main level of the house Home Environment Standard Height Toilet,Walk in Shower Additional Social History Comment pt lives with her grand daugther but grand daughter works and will not be able to provide much assistance pt has an adjustable bed at home M2 PT-IP Current Condition Start: 07/09/24 16:50 Freq: NEEDED Status: Active Protocol: Document 07/09/24 14:55 AB (Rec: 07/09/24 17:05 [id number]) Physical Therapy Current Condition Current Condition Evaluation Date 07/09/24 Treatment Diagnosis L femoral fx s/p L hip hemiarthroplasty; difficulty in walking Onset Date 07/07/24 M3 PT-IP Subjective Start: 07/09/24 16:50 Freq: NEEDED Status: Active Protocol: Document 07/09/24 14:55 AB (Rec: 07/09/24 17:05 AB [id number]) Subjective Physical Therapy Visit Type Type Initial Evaluation Visit Start Time 14:55 Visit Stop Time 15:45 Number of FOOD SERVICE KITCHEN SUPERVISOR Visits 0 Physical Therapy Visit Comments Patient Comments agreeable to do PT Therapy Pain Assessment Pain When Pain Assessed At Rest Pain Present Pain Present Pain Reported Location left hip Scale Used pain scale not stated Pain Behaviors Guarding,Holding Area Pain Management Techniques Distraction,Modification of Treatment,Re-positioning, Timing of Activity with Medications M4 PT-IP Mobility and Gait Start: 07/09/24 16:50 Freq: NEEDED Status: Active Protocol: Document 07/09/24 14:55 AB (Rec: 07/09/24 17:05 [id number]) PT-Bed Mobility Assessment Supine to Sit Supine to Sit Maximum Assistance,1 Person Assistance,2 Person Assistance ,Head of Bed Elevated,Bedrails Scooting Scooting to Edge of Bed Maximum Assistance PT-Transfer Assessment Sit to and From Stand Sit to and from Stand Maximum Assistance,1 Person Assistance,2 Person Assistance ,Use of Upper Extremities Equipment Transfer Assistive Device Gait Belt,Front Wheeled Walker Orthotic/Prosthetic Devices or Brace: No Transfers Transfer Destination Chair Transfer Technique Stand Step Pivot Transfer Ability Level of Assist Maximum Assistance,1 Person Assistance,2 Person Assistance ,Use of Upper Extremities Comments Mobility Comments pt supine in bed and with confusion. agreed to do PT. obtained PLOF and home set up. Pt's friend came in after PT session and clarified pt's info. post-op folder provided to pt and educated on L posterior hip precautions. pt unable to recall. BP: 128/68 O2 sat with 2L/min O2: 90-93%. pt completed supine to sit max A x 1-2 and max cues. HOB elevated. max A for scooting to EOB. O2 sat 87-88% and cued for deep breathing. O2 sat increased to 92%. pt sat at EOB for a few minutes. pt completed sit to stand max A x 1-2 and max cues. needed assist to maintain hip precautions. instructed to ambulate and was able to ambulate ~ 2 ft using FWW max A x 1-2 and max cues. required assist for weight shifting to be able to move LLE forward. presents with decrease LE elevation. pt stated that she needs to sit down. directed to the chair and able to step transfer max A x 1-2 and max cues. max A x 1-2 for controlled descent to chair. positioned pt on the chair. Left pt with Nurse and NAC in room. Gait Assessment Gait Gait Assistance Required: Maximum Assistance,1 Person Assist,2 Person Assist Distance (Feet) 2 Able to Maintain Weight Bearing Status Yes During Gait Assistive Devices Assistive Device Gait Belt,Front Wheeled Walker Orthotic/Prosthetic Devices or Brace: No Gait Deviations General Gait Pattern Antalgic,Decreased Stride Length,Decreased Feet Clearance,Step-to Gait Factors Limiting Gait Function Factors Limiting Gait Function Decreased Activity Tolerance, Decreased Strength,Difficulty Following Directions,Limited Range of Motion,Pain,Poor Balance,Poor Safety Awareness PT-Balance Assessment Sitting Balance and Reactions Static Sitting Balance Ability Good Dynamic Sitting Balance Ability Fair Standing Balance and Reactions Static Standing Balance Ability Poor Dynamic Standing Balance Ability Poor Device Used FWW M5 PT-IP Objective Assessments Start: 07/09/24 16:50 Freq: NEEDED Status: Active Protocol: Document 07/09/24 14:55 AB (Rec: 07/09/24 17:05 [id number]) Orientation Orientation/Cognition Level of Alertness Confusional State Orientation Name,Place,Situation Language Function Ability Hard of Hearing Safety Awareness Decreased Safety Awareness Memory Description Short Term Impaired,Shelter Impaired Strength Lower Extremity Strength Assessment Left Impaired Hip 3-/5 Knee 3+/5 Muscle Tone Muscle Tone WNL Yes M6 PT-IP Treatment Start: 07/09/24 16:50 Freq: NEEDED Status: Active Protocol: Document 07/09/24 14:55 AB (Rec: 07/09/24 17:05 [id number]) Physical Therapy Treatment Exercises Exercises Heel Slides Education Education Provided Precautions,Weight Bearing Status,Post-Op Packet,Safety M7 PT-IP Assessment and Plan Start: 07/09/24 16:50 Freq: NEEDED Status: Active Protocol: Document 07/09/24 14:55 AB (Rec: 07/09/24 17:05 [id number]) PT Summary Assessment and Plan Potential Rehabilitation Potential Fair Status of Condition at Evaluation Evolving Summary Impairments Pain,ROM,Strength,Balance, Coordination,Sensation,Tone, Cognition,Bed Mobility, Transfers,Gait,Activity Tolerance Assessment Summary Pt is an 83 y/o F s/p fall and sustain a L femoral neck fx. pt underwent L hip hemiarthroplasty POD 1 and has L hip posterior precautions. pt is WBAT on LLE. pt requiring max A x 1-2 with all mobilities and ambulation using FWW but only able to ambulate ~ 2 ft. pt will benefit from SNF rehab to improve overall mobility independence. Goals Bed Mobility Goal Minimal Assistance Transfer Goal Minimal Assistance,Front Wheeled Walker Gait Goal Minimal Assistance,Front Wheel Walker Gait Distance 50 Other Goals improve bed mobility, transfers, ambulation using FWW ~ 100 ft SBA up/down 6 steps B rail SBA Days to Meet Goals 10 Frequency of Treatment Frequency Of Treatment Twice a Day Treatment Plan Physical Therapy Treatment Plan Bed Mobility Training,Transfer Training,Gait Training, Therapeutic Exercise,Balance Retraining,Post Op Education, Discharge Planning,Hot or Cold Pack,Neuromuscular Re-ed, Coordination Retraining,Manual Therapy Precautions Posterior Hip Precautions No Hip Flexion > 90 degrees,No Hip Internal Rotation,No Hip Adduction Weight Bearing Status Weight Bearing Status Weight Bear as Tolerated Allowed Weight Bearing Amount (enter % LLE WBAT or #) (%) Recommendations To Nursing Amount of Assist Needed 2 Person Assist Discharge Recommendations PT Discharge Recommendations SNF Rehab Transportation Needs at Discharge Wheelchair/Cabulance
[2024-07-09 18:00] VITALS: BP 131/64; PULSE 60; TEMP 36.8; O2SAT 94
[2024-07-09 19:30] VITALS: O2SAT 95
[2024-07-09 20:00] VITALS: BP 150/73; PULSE 61; RESP 14; TEMP 37.2; O2SAT 95
--- NOTE | 2024-07-09 20:14 | PC.NURSE ---
Mental status/Pain: Pt thinking there are people in her room who are not there. thought her emesis bag dispenser was a person looking at her. Pt knows she is hallucinating at times. She thinks its the pain medication. Doesn't want any more dilaudid. Wants to take just tylenol. A dose was given this am but it wasnt quite enough and she was given oxy. After getting the oxy she had alt mental status agin. She was arguing with her friend about when she arrived. She thought she had been here a week and -people who were supposed to see her never came. The friend talked with her for a long time until she was able to understand she had surgery yesterday and no one had been delinquent in their duties to her. Dr Hdz made aware of pt's mental status and having some hallucinations. Pt believes this is being caused by the dilaudid (has not received sinced yesterday) and the oxy but the ibuprofen and the acetamin. are not quite enough. An order was received for tramadol. However pt didnt want to take this because she was worried because of having the hallucinations. Pt -> Thank you for trying but I'm not thinking right and I know it. Pt became mentally clearer over the shift. And at time of returning back to bed pt reported the hallucinations were gone.
[2024-07-09] MEDS: SERTRALINE 50 MG TABLET 100 MG PO (20:16)
[2024-07-09] MEDS: TRAMADOL 50 MG TABLET PO (20:17)
[2024-07-09] MEDS: SODIUM CHLORIDE 0.9% FLUSH 10 ML IV (20:18)
[2024-07-10] VITALS (7 sets, daily range): BP systolic 128–165; BP diastolic 75–85; PULSE 56–62; RESP 14–18; TEMP 36.5–36.7; O2SAT 90–97
[2024-07-10] MEDS: TRAMADOL 50 MG TABLET PO ×4 (03:54→21:33)
[2024-07-10] MEDS: ACETAMINOPHEN 325 MG TABLET 650 MG PO ×3 (03:55→17:50)
--- NOTE | 2024-07-10 07:37 | PC.NURSE ---
Urinary cath removed at 0650, patient tolerated procedure well.
[2024-07-10] MEDS: IBUPROFEN 400 MG TABLET PO (09:08)
--- NOTE | 2024-07-10 09:29 | PT.IPTN ---
Current Diagnoses Major depressive disorder, single episode, in partial remission (07/07/24) Essential (primary) hypertension (07/07/24) Fracture of unspecified part of neck of left femur, initial encounter for closed fracture (07/07/24) Fracture of unspecified part of neck of left femur, subsequent encounter for closed fracture with routine healing (07/07/24) Fracture of unspecified part of neck of unspecified femur, initial encounter for closed fracture (07/07/24) Surgery Performed Operation Date: 07/08/24 12:30 Actual Procedures p Left Hip Unipolar(Left) - Steven Hernandes MD Physical Therapy Treatment Note M2 PT-IP Current Condition Start: 07/09/24 16:50 Freq: NEEDED Status: Active Protocol: Document 07/09/24 14:55 AB (Rec: 07/09/24 17:05 AB [id number]) Physical Therapy Current Condition Current Condition Evaluation Date 07/09/24 Treatment Diagnosis L femoral fx s/p L hip hemiarthroplasty; difficulty in walking Onset Date 07/07/24 M3 PT-IP Subjective Start: 07/09/24 16:50 Freq: NEEDED Status: Active Protocol: Document 07/10/24 09:00 KS (Rec: 07/10/24 11:07 KS [id number]) Subjective Physical Therapy Visit Type Type Treatment Note Visit Start Time 09:00 Visit Stop Time 09:29 Number of LAUNDRY HELPER Visits 1 Physical Therapy Visit Comments Patient Comments agreeable to do PT Therapy Pain Assessment Pain When Pain Assessed At Rest Pain Present Pain Present Pain Reported Location left hip Scale Used pain scale not stated Pain Management Techniques Distraction,Modification of Treatment,Re-positioning, Timing of Activity with Medications M4 PT-IP Mobility and Gait Start: 07/09/24 16:50 Freq: NEEDED Status: Active Protocol: Document 07/10/24 09:00 KS (Rec: 07/10/24 11:07 KS [id number]) PT-Bed Mobility Assessment Supine to Sit Supine to Sit Moderate Assistance,1 Person Assistance,Head of Bed Elevated,Bedrails Scooting Scooting to Edge of Bed Maximum Assistance PT-Transfer Assessment Sit to and From Stand Sit to and from Stand Maximum Assistance,1 Person Assistance,Use of Upper Extremities Equipment Transfer Assistive Device Gait Belt,Front Wheeled Walker Orthotic/Prosthetic Devices or Brace: No Transfers Transfer Destination Bedside Commode Transfer Technique Stand Step Pivot Transfer Ability Level of Assist Moderate Assistance,1 Person Assistance,Use of Upper Extremities Comments Mobility Comments Pt in bed upon arrival, feeling more clear headed today. Reviewed post hip precautions. Reports pain and difficulty moving LE, improved after ther ex. Max A for sup< >Sit and scooting EOB. Max A for sit<>stand w/ FWW. Pt able to complete stand step pivot to [facility] w/ Mod A using FWW but Max verbal and tacile cues for FWW mgmt and step sequencing. Pt left on [facility] w/ nursing staff attending. Gait Assessment Gait Gait Assistance Required: Moderate Assistance,Maximum Assistance,1 Person Assist Distance (Feet) 3 Able to Maintain Weight Bearing Status Yes During Gait Assistive Devices Assistive Device Gait Belt,Front Wheeled Walker Orthotic/Prosthetic Devices or Brace: No Gait Deviations General Gait Pattern Antalgic,Decreased Stride Length,Decreased Feet Clearance,Step-to Gait Factors Limiting Gait Function Factors Limiting Gait Function Decreased Activity Tolerance, Decreased Strength,Difficulty Following Directions,Limited Range of Motion,Pain,Poor Balance,Poor Safety Awareness Comments Gait Comments See mobility. PT-Balance Assessment Sitting Balance and Reactions Static Sitting Balance Ability Good Dynamic Sitting Balance Ability Fair Standing Balance and Reactions Static Standing Balance Ability Fair Dynamic Standing Balance Ability Poor Device Used FWW M5 PT-IP Objective Assessments Start: 07/09/24 16:50 Freq: NEEDED Status: Active Protocol: Document 07/09/24 14:55 AB (Rec: 07/09/24 17:05 AB [id number]) Orientation Orientation/Cognition Level of Alertness Confusional State Orientation Name,Place,Situation Language Function Ability Hard of Hearing Safety Awareness Decreased Safety Awareness Memory Description Short Term Impaired,Passenger Train Braker Impaired Strength Lower Extremity Strength Assessment Left Impaired Hip 3-/5 Knee 3+/5 Muscle Tone Muscle Tone WNL Yes M6 PT-IP Treatment Start: 07/09/24 16:50 Freq: NEEDED Status: Active Protocol: Document 07/10/24 09:00 KS (Rec: 07/10/24 11:07 KS [id number]) Physical Therapy Treatment Exercises Exercises Ankle Pumps,Gluteal Sets,Quad Sets,Heel Slides,Supine Hip Abduction Education Education Provided Precautions,Weight Bearing Status,Post-Op Packet,Safety M7 PT-IP Assessment and Plan Start: 07/09/24 16:50 Freq: NEEDED Status: Active Protocol: Document 07/10/24 09:00 FRED (Rec: 07/10/24 11:07 MA [id number]) PT Summary Assessment and Plan Potential Rehabilitation Potential Fair Summary Impairments Pain,ROM,Strength,Balance, Coordination,Sensation,Tone, Cognition,Bed Mobility, Transfers,Gait,Activity Tolerance Progress Towards Goals Slow Progress due to Pain,Slow Progress due to Activity Tolerance Assessment Summary Pt able to show some improvement today, but still required Mod to Max A for all tasks as well as max cues. Reveiwed post hip precautions and therapeutic exericses. Limited by pain, weaknes, and low tolerance for activity. Pt will benefit from SNF to improve strength and functional mobility. Goals Bed Mobility Goal Minimal Assistance Transfer Goal Minimal Assistance,Front Wheeled Walker Gait Goal Minimal Assistance,Front Wheel Walker Gait Distance 50 Other Goals improve bed mobility, transfers, ambulation using FWW ~ 100 ft SBA up/down 6 steps B rail SBA Days to Meet Goals 10 Frequency of Treatment Frequency Of Treatment Twice a Day Treatment Plan Physical Therapy Treatment Plan Bed Mobility Training,Transfer Training,Gait Training, Therapeutic Exercise,Balance Retraining,Post Op Education, Discharge Planning,Hot or Cold Pack,Neuromuscular Re-ed, Coordination Retraining,Manual Therapy Precautions Posterior Hip Precautions No Hip Flexion > 90 degrees,No Hip Internal Rotation,No Hip Adduction Weight Bearing Status Weight Bearing Status Weight Bear as Tolerated Allowed Weight Bearing Amount (enter % LLE WBAT or #) (%) Recommendations To Nursing Amount of Assist Needed 2 Person Assist Discharge Recommendations PT Discharge Recommendations SNF Rehab Transportation Needs at Discharge Wheelchair/Cabulance
[2024-07-10] MEDS: atenoloL 50 MG TABLET PO ×2 (09:51→20:26)
[2024-07-10] MEDS: ASPIRIN EC 81 MG TABLET PO ×2 (09:51→20:26)
[2024-07-10] MEDS: CHOLECALCIFEROL (VITAMIN D3) 1,000 UNIT TABLET 1000 UNIT PO (09:51)
[2024-07-10] MEDS: SODIUM CHLORIDE 0.9% FLUSH 10 ML IV ×2 (09:52→20:27)
--- NOTE | 2024-07-10 10:16 | PM.PN.1 ---
Subjective Subjective Date Patient Seen: 07/10/24 Time Patient Seen: 09:30 Interval history: Patient sitting on side of bed getting ready to work with PT. Reports she had very limited mobility yesterday due to pain but is motivated to continue working toward recovery. Family had previously mentioned desire for her to discharge to acute rehab in [place], however patient lives in [place] and indicates she would be open to a local facility. She would like to discuss it further with case management when her family members arrive. Exam Vital Signs (past 8 hours): - 07/10/24 09:54 07/10/24 09:56 Temperature 98.0 F Pulse Rate 61 Respiratory Rate 17 Blood Pressure 128/83 Pulse Oximetry 96 92 Oxygen Delivery Method Nasal Cannula Oxygen Flow Rate 2 2 Fraction of Inspired Oxygen 36 SaO2/FiO2 Ratio 269 Oxygen Delivery Method Nasal Cannula Oxygen Flow Rate 2 Narrative Exam Narrative: General: Pleasant, NAD HEENT: NC/AT, EOMI, moist membranes CV: RRR, normal S1-S2, no m/g/r Resp: CTAB, comfortable WOB Abd: Soft, NTND, +BS Ext: Wound dressing over L lateral hip/thigh c/d/i Skin: No rash or lesions noted Neuro: A&O x3, moves all extremities, no focal deficits Objective Labs 07/07/24 12:48 07/07/24 12:48 PFSH Medical History 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 Secondhand smoke exposure Excessive daytime sleepiness COVID-19 Cholelithiasis and acute cholecystitis without obstruction Easy bruisability Arthritis Chronic headaches Chronic back pain Depression Hayfever Hyperlipidemia Hypertension GERD (gastroesophageal reflux disease) Chronic sinusitis Overactive bladder Fragrance hypersensitivity Seasonal allergies Foot pain Ankle pain Surgical History History of dilation of urethra History of bladder suspension procedure Hx of cholecystectomy History of partial hysterectomy (1970) History of tonsillectomy and adenoidectomy (1946) History of repair of rectocele (2006) Hx of bladder repair surgery Hx of sinus surgery Hx of appendectomy (1952) Anesthesia Family History Father Bladder cancer Mother Breast cancer Sister Age: 90 Stage I breast cancer Brother Liver disease Hepatitis Son Addiction Unemployed Homeless Daughter Addiction Homeless Unemployed Social History marital status: number of children: 2 household members: family lives independently: Yes caregiver/support person: No housing: house occupational status: other Smoking Status: Never smoker second hand exposure: No alcohol intake: never substance use type: does not use caffeine: Yes Type(s) of exercise: none Assessment & Plan Assessment and plan (1) Closed hip fracture: Qualifiers: Encounter type: subsequent encounter Laterality: left Fracture healing: with routine healing Qualified Code(s): S72.002D - Fracture of unspecified part of neck of left femur, subsequent encounter for closed fracture with routine healing Status: Acute (2) Essential hypertension with goal blood pressure less than 140/90: Status: Chronic (3) Depression: Qualifiers: Depression Type: major depressive disorder Major depression recurrence: single episode Active/Remission status: in partial remission Qualified Code(s): F32.4 - Major depressive disorder, single episode, in partial remission Status: Chronic Assessment & Plan narrative: 83-year-old female with hypertension and depression admitted for left femoral neck fracture after ground level fall at home. #closed left femoral neck fracture Postop day #1 after left hemiarthroplasty. -pain scale -ASA 81 mg b.i.d. x4 weeks for DVT ppx per ortho recs -continue PT for postop recovery #hypertension -atenolol 50 mg b.i.d. #depression -sertraline 100 mg daily Diet: Regular DVT ppx: Aspirin Code: Full PCP: Sofi Dispo: Acute rehab, likely tomorrow Time-Based Coding :: 20 minutes spent with patient and on the chart (including review of chart, obtaining history, exam, reviewing outside data, placing orders, documenting exam and treatment plan, and counseling patient) on 07/10/2024.
--- NOTE | 2024-07-10 15:17 | P.PN_ITS ---
Subjective Subjective Interval history: She is doing reasonably well. She has minimal pain. She did not have pre- existing pulmonary issues. She does not feel short of breath. Exam Vital Signs (past 8 hours): - 07/10/24 09:54 07/10/24 09:56 07/10/24 10:39 Temperature 98.0 F Pulse Rate 61 Respiratory Rate 17 Blood Pressure 128/83 Pulse Oximetry 96 92 Oxygen Delivery Method Nasal Cannula Nasal Cannula Oxygen Flow Rate 2 2 07/10/24 10:39 Temperature Pulse Rate Respiratory Rate Blood Pressure Pulse Oximetry 90 L Oxygen Delivery Method Nasal Cannula Oxygen Flow Rate 1.5 Fraction of Inspired Oxygen 36 SaO2/FiO2 Ratio 269 Oxygen Delivery Method Nasal Cannula Oxygen Flow Rate 1.5 Narrative Exam Narrative: Up sitting in a chair comfortable, left hip dressing is dry, calf soft bilaterally, minimal pain with gentle range of motion Objective Labs 07/07/24 12:48 07/07/24 12:48 [facility] Medical History 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 Secondhand smoke exposure Excessive daytime sleepiness COVID-19 Cholelithiasis and acute cholecystitis without obstruction Easy bruisability Arthritis Chronic headaches Chronic back pain Depression Hayfever Hyperlipidemia Hypertension GERD (gastroesophageal reflux disease) Chronic sinusitis Overactive bladder Fragrance hypersensitivity Seasonal allergies Foot pain Ankle pain Surgical History History of dilation of urethra History of bladder suspension procedure Hx of cholecystectomy History of partial hysterectomy (1970) History of tonsillectomy and adenoidectomy (194) History of repair of rectocele (2006) Hx of bladder repair surgery Hx of sinus surgery Hx of appendectomy (1952) Anesthesia Family History Father Bladder cancer Mother Breast cancer Sister Age: 90 Stage I breast cancer Brother Liver disease Hepatitis Son Addiction Unemployed Homeless Daughter Addiction Homeless Unemployed Social History marital status: number of children: 2 household members: family lives independently: Yes caregiver/support person: No housing: house occupational status: other Smoking Status: Never smoker second hand exposure: No alcohol intake: never substance use type: does not use caffeine: Yes Type(s) of exercise: none Assessment & Plan Post-op Postoperative Procedures: Procedures Operation Date: 07/08/24 12:30 Actual Procedure Side Surgeon p Left Hip Unipolar Left Steven Hernandes MD Postoperative day: 2 Postoperative status: doing well Postoperative status narrative: She is doing well postoperatively. She is still on O2 her O2 sat is about 92 on 1 L. she is working with therapy. We had an extensive discussion today and a pep talk as she would like to try to go to rehab in order to get stronger prior to going home. She can be weight-bearing as tolerated on the left lower extremity. Anticipate discharge to rehab tomorrow or home with family and home health PT.
--- NOTE | 2024-07-10 15:38 | CM.DPC ---
DCP Cont According to [facility] at [facility], patient is accepted for admission tomorrow 07/11. PASRR completed and signed by Dr Hdz. CM team following closely for coordination. WINIFRED 07/11. JW
[2024-07-10] MEDS: SERTRALINE 50 MG TABLET 100 MG PO (20:26)
[2024-07-11 06:56] VITALS: PULSE 60; O2SAT 92
[2024-07-11 07:00] VITALS: O2SAT 96
--- NOTE | 2024-07-11 07:57 | P.DS_ITS ---
History of Present Illness History of Present Illness Date Patient Seen: 07/11/24 Time Patient Seen: 07:58 Chief complaint: GLF,left hip pain,short/rotated Narrative: 83-year-old female who normally sees Dr. Edel Farah, who is admitted for hip fracture. She apparently tripped over something in her home landing on her left side. Had immediate onset of pain. EMS was summoned transported her to [facility] Emergency Department where imaging identified the left femoral neck fracture. Patient did not lose consciousness either before during or after. Has no head pain or neck pain. Did try to grab the railing in her home and has some bruising and scrapes along her right arm which took the force No other fracture noted on pelvic imaging Discharge Providers Provider Date of admission: 07/07/24 16:38 Discharge Date: 07/11/24 Primary care physician: Edel Farah MD Consults: 07/07/24 20:14 Consult to Physician Routine Comment: Consulting Provider: Alise Clifton Reason for consultation: hip fracture Has provider been notified: Yes 07/08/24 21:18 Consult to Discharge Planning Routine Comment: 07/09/24 10:41 Consult to Physical Therapy Evaluate & Treat Comment: Physician Instructions: Evaluate and Treat Discharge provider: Edel Farah MD Summary Hospital Course Discharge Diagnosis: Left femoral neck fracture HTN Depression Hospital Course: The pt presented after ground level fall at home, found to have left femoral neck fracture. The pt underwent left hip hemiarthroplasty on 07/08/24 without complications. There were not postoperative complications. She was converted to Tramadol for pain control due to concerns for hallucinations on Oxycodone. The pt will be discharged to SNF for ongoing rehab, with goal of returning home. Exam Vital Signs (past 8 hours): - 07/11/24 06:56 Pulse Rate 60 Pulse Oximetry 92 Oxygen Delivery Method Nasal Cannula Oxygen Flow Rate 1 Fraction of Inspired Oxygen 24 Fraction of Inspired Oxygen 24 SaO2/FiO2 Ratio 383 Oxygen Delivery Method Nasal Cannula Oxygen Flow Rate 1 Narrative Exam Narrative: Gen: NAD, sitting comfortably in bed, appears well CV: RRR, no murmurs Resp: clear to auscultation bilaterally Abd: soft, nontender Ext: no edema Objective Labs 07/07/24 12:48 07/07/24 12:48 [facility] Medical History 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 Secondhand smoke exposure Excessive daytime sleepiness COVID-19 Cholelithiasis and acute cholecystitis without obstruction Easy bruisability Arthritis Chronic headaches Chronic back pain Depression Hayfever Hyperlipidemia Hypertension GERD (gastroesophageal reflux disease) Chronic sinusitis Overactive bladder Fragrance hypersensitivity Seasonal allergies Foot pain Ankle pain Surgical History History of dilation of urethra History of bladder suspension procedure Hx of cholecystectomy History of partial hysterectomy (1970) History of tonsillectomy and adenoidectomy (1946) History of repair of rectocele (2006) Hx of bladder repair surgery Hx of sinus surgery Hx of appendectomy (1952) Anesthesia Family History Father Bladder cancer Mother Breast cancer Sister Age: 90 Stage I breast cancer Brother Liver disease Hepatitis Son Addiction Unemployed Homeless Daughter Addiction Homeless Unemployed Social History marital status: number of children: 2 household members: family lives independently: Yes caregiver/support person: No housing: house occupational status: other Smoking Status: Never smoker second hand exposure: No alcohol intake: never substance use type: does not use caffeine: Yes Type(s) of exercise: none Discharge Plan Discharge Plan Patient Disposition: SNF Transfer to: [facility] Discharge orders & Medications Prescriptions: New acetaminophen 325 mg Tablet 650 mg PO Q6H PRN (Reason: Fever/Mild Pain (1-3)) Qty: 60 0RF aspirin 81 mg Tablet,Delayed Release (Dr/Ec) 81 mg PO BID Qty: 60 0RF tramadol 50 mg Tablet 50 mg PO QID PRN (Reason: Pain, Moderate (4-6)) Qty: 40 0RF ibuprofen 400 mg Tablet 400 mg PO Q6HR PRN (Reason: Fever/Mild Pain (1-3)) Qty: 60 0RF Continued cholecalciferol (vitamin D3) 25 mcg (1,000 unit) capsule 25 mcg PO BID atenolol 50 mg tablet 50 mg PO BID Qty: 180 3RF sertraline 50 mg tablet 50 mg PO QPM (DME) Respironics Dreamstation CPAP Qty: 1 Dose Instruction: As directed Patient Comments: Pressure: 6-12 cmH2O DME: [facility] Rx Instructions: As directed Follow up/Referrals: Edel Farah MD [Primary Care Provider] - 1 Month Diet/Activity/Treatments Diet: Diet as Tolerated and Regular Skin/Wound/Dressing Care Report to your healthcare provider any signs of infection, such as:: chills, fever and increased pain Visit Report/Discharge Packet Stand Alone Forms: Patient Portal/API, Stroke Signs & Symptoms Discharge Data Primary Care Provider: Edel Farah
[2024-07-11 08:00] VITALS: BP 155/87; PULSE 54; RESP 17; TEMP 36.3; O2SAT 95
--- NOTE | 2024-07-11 08:42 | CM.DPC ---
Addendum entered by RIDGE Hemphill 07/11/24 10:21: ADD: SW faxed PAS[facility], signed med list, scripts, d/c summary and MD orders to [facility] to review and they confirm they can transport around 1400. Updated Rn, dock boss, TABBER. BF Original Note: DCP Discharge SNF Per MD, pt is medically stable to discharge to SNF today and no identified barriers to discharge. SW confirmed that [facility] does not have available bed today and per RN pt is agreeable to [facility] since [facility] not an option (this was granddtr's preference due to location). SW left [facility] a msg with update on d/c orders and to confirm time for transport. SW updated RN, dock boss and TABBER. Plan: Waiting for discharge summary and orders and then time for transport from [facility] and SW will send d/c packet to review. RIDGE Hemphill
[2024-07-11] MEDS: ASPIRIN EC 81 MG TABLET PO (09:04)
[2024-07-11] MEDS: atenoloL 50 MG TABLET PO (09:04)
[2024-07-11] MEDS: CHOLECALCIFEROL (VITAMIN D3) 1,000 UNIT TABLET 1000 UNIT PO (09:04)
[2024-07-11] MEDS: TRAMADOL 50 MG TABLET PO ×2 (09:06→13:00)
[2024-07-11] MEDS: ACETAMINOPHEN 325 MG TABLET 650 MG PO (12:12)
--- NOTE | 2024-07-11 14:44 | PC.NURSE ---
Patient is A&Ox4, VSS, afebrile. She is weaned to 1 LNC this a.m. and tolerating it well. Oxygenation sats 95-96% on RA. She uses IS frequently and initially denies much pain to LLE while lying in bed. She reports pain increases to 8/10 when up and out of bed to BSC and working with PT. Her pain is better controlled with Tramadol PRN then with Tylenol. MD Damon at bedside this a.m. clearing patient for discharge to SNF today. She acknowledges and agrees to [facility] as there aren't any available beds currently in [facility]. Report called to Tona at [facility]. Transporter arrives to transport patient and her packet at 210p.m. this afternoon.
== END 2024-07-11 14:10 | DRG 522 ==
LOC: ED 16:35 → AC 16:39
PROVIDERS: Orthopaedic Surgery; Admitting Provider Internal Medicine; Emergency Provider Emergency Medicine; PCP Family Medicine; Referring Provider Emergency Medicine; Visit Provider Family Medicine
PROC: 0SRS0JZ Replacement of Left Hip Joint, Femoral Surface with Synthetic Substitute, Open Approach (ICD-10-PCS; CPT 27125; principal; 2024-07-08 12:30)
DX: S72.002A Fracture of unspecified part of neck of left femur, initial encounter for closed fracture (principal); R44.3 Hallucinations, unspecified; I10 Essential (primary) hypertension; F32.4 Major depressive disorder, single episode, in partial remission; G47.33 Obstructive sleep apnea (adult) (pediatric); T40.2X5A Adverse effect of other opioids, initial encounter; W01.0XXA Fall on same level from slipping, tripping and stumbling without subsequent striking against object, initial encounter
CPT/HCPCS: 36415; 72170; 73501; 73502; 80053; 85025; 93005; 93010; 94760; 94762; 96374; 96375; 96376; 97110; 97162; 97530; 99222; 99231; 99232; 99238; 99285; C1776; C9290; J0171; J0690; J1171; J1885; J2250; J2270; J2405; J2704

== ENCOUNTER → 2024-09-07 15:52 | Outpatient (CLI) | payer MEDICARE, OTHER, SELFPAY ==
[2024-07-07 17:22] VITALS: BMI 24.1
[2024-09-09 11:08] LABS: Fecal Immunochemical Test Negative (Negative)
== END ==
LOC: LAB 15:53
PROVIDERS: Family Provider Family Medicine; PCP Family Medicine; Referring Provider Surgery; Visit Provider Surgery
DX: K62.5 Hemorrhage of anus and rectum (principal)
CPT/HCPCS: 82274

== ENCOUNTER 2024-10-27 13:00 | Outpatient (RCR) | payer MEDICARE, OTHER, SELFPAY ==
[2024-07-07 17:22] VITALS: BMI 24.1
--- NOTE | 2024-09-19 15:45 | PT.OIE ---
Current Diagnoses Stiffness of left hip, not elsewhere classified (09/19/24) Other lack of coordination (09/19/24) Weakness (09/19/24) Fracture of unspecified part of neck of left femur, initial encounter for closed fracture (09/19/24) Past Medical History Ankle pain Arthritis Cholelithiasis and acute cholecystitis without obstruction Chronic back pain Chronic headaches Chronic sinusitis COVID-19 Depression Easy bruisability Excessive daytime sleepiness Foot pain Fragrance hypersensitivity GERD (gastroesophageal reflux disease) Hayfever Hyperlipidemia Hypertension Overactive bladder 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 Seasonal allergies Secondhand smoke exposure Past Surgical History (Last Reviewed 07/09/24 @ 08:55 by Horace Diaz PA-C) Anesthesia History of bladder suspension procedure History of dilation of urethra History of partial hysterectomy (1970) History of repair of rectocele (2006) History of tonsillectomy and adenoidectomy (1946) Hx of appendectomy (1952) Hx of bladder repair surgery Hx of cholecystectomy Hx of sinus surgery Visit Care Team Role Provider Type Edel Farah MD Family Provider Physician Primary Care Provider Specialty: [facility] Address: [address] [place] [address], [id number] Email: [email or web address] Kee Webb MD Attending Provider Physician Referring Provider Specialty: Orthopedics Orthopedic Surgery Address: [address] [place] [address], [id number] Email: [email or web address] Initial Evaluation PT-OP-A Visit Information Start: 09/19/24 12:53 Freq: Status: Active Protocol: Document 09/19/24 14:34 NM (Rec: 09/19/24 15:42 NM [id number]) Out-Patient Physical Therapy Visit Information Visit Information Visit Type Initial Evaluation Visit Note KX after 19 visits Visit Start Time 14:35 Visit Stop Time 15:15 Visit Number 1 Evaluation Information Evaluation Date 09/19/24 Precautions Precautions DOS 07/08/24 L hemiarthroplasty: posterior hip precautions PT-OP-B Current Condition Start: 09/19/24 12:53 Freq: Status: Active Protocol: Document 09/19/24 14:34 NM (Rec: 09/19/24 15:42 NM [id number]) Current Condition History of Current Condition Onset Date DOS 07/08/25 Current Complaints balance, strength History of Current Condition Pt reports that she fell several months ago on her L side, caught her toe on her sneaker. She had a 07/08/24 ( fell on 07/07), had a L hemiarthroplasty. No complications with surgery. She had some physical therapy after surgery in a SNF, had [facility]. Pt reports does HEP 1x/day, but states not real faithful. Pt has been using a cane for mobility. States does not always use her cane at home but would not get very far without it. No falls since surgery but states that her balance is a little off. She does have a hx of falls, several years ago. Pt reports that she usually uses sandals, which caused her to trip when she caught herself on the rug . Pt lives with her granddaugher (21 years old). Pt has 5 steps onto her porch, has a daylight basement but does not go down to the basement except once in a while for laundry, garage rails; has rails on B side for all. Hx of pain in her ankles , knees, low back. Pt reports some compliance with hip precautions, she unsure if they're still in place. Pt unsure if she has another appt but saw PA at last appt. Treatment Goals Patient/Caregiver Goals get off of using the cane possible, improve balance, transfers PT-OP-C Subjective Start: 09/19/24 12:53 Freq: Status: Active Protocol: Document 09/19/24 14:34 NM (Rec: 09/19/24 15:42 NM [id number]) OP-PT Subjective Patient Comments Patient Comments Pt consents to participate in PT evaluation Patient Questionnaires Lower Extremity Functional Scale LEFS Score 55/80 OP-PT Pain Assessment Location left hip Pain Location Details groin, scar, lateral hip Intensity 2 Scale Used Numeric (0 - 10) Description Aching Description- Other discomfort Frequency Occasional Radiating Location down LLE to thigh Pain Aggravating Factors Position,Sitting,Walking,Stair Climbing,Bending Pain Alleviating Factors Medication,Position,Rest Other Pain Alleviating Factors tylenol prn, ambulation PT-OP-D Balance Start: 09/19/24 15:42 Freq: Status: Active Protocol: Document 09/19/24 14:34 NM (Rec: 09/19/24 15:43 NM [id number]) Balance Tests Single Limb Standing Single Limb- Right 5 seconds Single Limb- Left 3 seconds Semi-Tandem Standing Semi-Tandem Standing Balance 5 seconds PT-OP-E Functional Tests Start: 09/19/24 12:53 Freq: Status: Active Protocol: Document 09/19/24 14:34 NM (Rec: 09/19/24 15:42 NM [id number]) Functional Tests Five Times Sit to Stand Test Score able to perform 1 STS without UE support Timed Up and Go (TUG) Score 18.8 sec Comments uses cane PT-OP-F Manual Assessment Start: 09/19/24 12:53 Freq: Status: Active Protocol: Document 09/19/24 14:34 NM (Rec: 09/19/24 15:42 NM [id number]) Manual Assessments Soft Tissue Assessment Soft Tissue Mobility Assessment Tightness along hip flexors, glutes PT-OP-G Mobility & Gait Start: 09/19/24 12:53 Freq: Status: Active Protocol: Document 09/19/24 14:34 NM (Rec: 09/19/24 15:42 NM [id number]) OP Mobility Evaluation Bed Mobility Rolling rolls B Supine to and from Sit needs Min assist supine > sit to avoid breaking hip flexion precautions IND sit > supine Transfers Sit to Stand Needs at least 1 assist from UE to stand up, puts LLE slightly forward Able to perform 1 rep without UE with cueing for weight shift and increased effort, no pain OP Gait Assessment Gait Gait Assistance Required: Independent Distance (Feet) 150 Assistive Devices Assistive Device Tripod Cane/Hurry Cane Gait Deviations General Gait Pattern Antalgic,Decreased Feet Clearance Factors Limiting Gait Function Factors Limiting Gait Function Decreased Activity Tolerance, Decreased Strength,Poor Balance PT-OP-J Posture/Palpation/Skin Start: 09/19/24 12:53 Freq: Status: Active Protocol: Document 09/19/24 14:34 NM (Rec: 09/19/24 15:42 NM [id number]) Palpation Assessment Location L hip Palpation Details Tenderness over posterolateral hip especially near glute/ greater trochanter Tightness, trigger points over hip flexors, TFL Skin Assessment Incisional Assessment Incision Appearance/Comments Scar healed, intact; no scabs. Less mobility distally PT-OP-K Range of Motion Start: 09/19/24 12:53 Freq: Status: Active Protocol: Document 09/19/24 14:34 NM (Rec: 09/19/24 15:42 NM [id number]) Hip Goniometric Range of Motion Hip Right Flexion w/Knee Flexed 105 Abduction 25 Left Flexion w/Knee Flexed 90 Abduction 25 PT-OP-M Strength Start: 09/19/24 12:53 Freq: Status: Active Protocol: Document 09/19/24 14:34 NM (Rec: 09/19/24 15:42 NM [id number]) Hip Strength Hip Manual Muscle Testing Right Flexion (L2) 4- Good- Extension (S1) 4- Good- Abduction 4- Good- Adduction 4- Good- External Rotation 4- Good- Internal Rotation 4- Good- Left Flexion (L2) 3+ Fair+ Abduction 3+ Fair+ Adduction 4- Good- Knee Strength Knee Manual Muscle Testing Right Flexion (S2) 4 Good Extension (L3) 4 Good Left Flexion (S2) 4 Good Extension (L3) 4 Good PT-OP-Q Treatments Start: 09/19/24 12:53 Freq: Status: Active Protocol: Document 09/19/24 14:34 NM (Rec: 09/19/24 15:42 NM [id number]) Therapeutic Exercises Supine Exercises heel slides Supine Exercise Name HEP Side left Reps/Minutes 10 Comments maintains <90 deg hip flex Sitting Exercises hip abduction Sitting Exercise Name clams- HEP Side bilateral Resistance level 2 Reps/Minutes 20x3 Comments issued teal band; knee positioned below hip LAQ Sitting Exercise Name HEP Side bilateral Reps/Minutes 20x5 Comments requires increased time; knee positioned below hip PT-OP-T Assessment and Plan Start: 09/19/24 12:53 Freq: Status: Active Protocol: Document 09/19/24 14:34 NM (Rec: 09/19/24 15:42 NM [id number]) Physical Therapy Assessment Rehab Potential Rehabilitation Potential Good Evaluation Complexity Number of Personal Factors/Comorbidities 3 or More Number of Body Systems Impaired 4 or More Clinical Presentation at Evaluation Stable Impairments Impairments Activity Tolerance,Balance, Functional Activities, Functional Mobility,Gait, Integument,Pain,Posture,ROM, Sensation,Soft Tissue Mobility ,Strength,Transfers Other Concerns Age Related Concerns PMH: arthritis, back pain, blood pressure, depression, falls, headches, hearing problems, joint replacement ( hip), neck pain, vision problems, bladder control Goals Four Impairment decreased BLE strength Short Term Goal (STG) Pt will able to perform at least 10 stairs with reciprocal pattern and at least 1 rail assist for improved household mobility STG Duration 8 weeks Shelter Goal (LTG) Pt will increased L hip strength to at least 4+/5 MMT in order to improve strength for gait, transfers, and stairs LTG Duration 10 weeks Three Impairment using AD for mobility, did not use AD prior to surgery Shelter Goal (LTG) If appropriate, pt will demonstrate normalized gait mechanics without AD during 6 MWT LTG Duration 10 weeks Two Impairment needs at least 1 UE to stand, demos LLE more forward Short Term Goal (STG) Pt will be able to perform at least 5 STS from standard chair with 1UE assist or less and maintain equal WB to demonstrate improved BLE strength for transfers STG Duration 5 weeks Nursing Service Administrator Goal (LTG) Pt will be able to perform at least 10 STS from standard chair using 1 UE or less to demonstrate improved BLE strength for transfers and gait LTG Duration 10 weeks One Impairment TUG 18.8 seconds with AD Nursing Service Administrator Goal (LTG) Pt will decreased TUG time with or without LRAD to <14 sec in order to demonstrate decreased fall risk LTG Duration 10 weeks Assessment Summary Assessment Pt is an 84 y.o. presenting s/ p L hemiarthroplasty on secondary to a fall. Pt has had PT in a SNF and home health prior to outpatient evaluation. She is using a cane for mobility post- operatively but did not use any AD prior to surgery. Pt has a hx of falls. She lives with her granddaughter and has several stairs in her home. Pt demonstrates impairments in L hip ROM, strength, gait, transfers, pain management, scar mobility, activity tolerance, and balance. Pt requires UE assist for sit to stand transfers and min A for bed mobility transfers. Pt's TUG time is 18.8, indicating mild increased risk of falls with community mobility. She demos poor stability with decreased KALLIE. PT educated pt on exam findings and plan of care. She would benefit from skilled PT for progressive flexibility, strengthening, transfer and gait training in order to improve functional mobility and independence, decrease fall risk, and to improve activity tolerance. Physical Therapy Plan Frequency and Duration Frequency of Treatment 2x/Week Duration of treatment (weeks) 10 Plan of Care Start Date 09/19/24 Plan of Care End Date 12/02/24 Therapeutic Interventions Therapeutic Interventions Balance Training,Gait Training ,Home Exercise Program,Joint Mobilizations,Manual Therapy, Neuromuscular Re-education, Orthotic/Prosthetic Management ,Patient/Caregiver Education, Self-Care/Home Management, Sensory Integration,Soft Tissue Mobilization,Taping, Therapeutic Activities, Therapeutic Exercises Modalities Cold Pack/Ice Massage,Electric Stimulation,Hot Packs, Ultrasound Next Visit Focus/Plan Next Note Type Treatment Note Next Visit Plan posterior hip precautions unless removed at last MD appt Review HEP. STS training Balance training: stable and unstable surfaces, SLS, semitandem stance
--- NOTE | 2024-09-19 16:14 | PT-OP ANOTE ---
PT called to ask for hip precautions still intact, spoke with triage nurse; triage nurse states 6 weeks with precautions usually with surgeons. States as long as no instability, progress as able without precautions since beyond 6 weeks, and have pt follow up with their office if needed.
--- NOTE | 2024-09-22 09:49 | PT.OTN ---
Current Diagnoses Stiffness of left hip, not elsewhere classified (09/22/24) Other lack of coordination (09/22/24) Weakness (09/22/24) Fracture of unspecified part of neck of left femur, initial encounter for closed fracture (09/22/24) Physical Therapy Treatment Note PT-OP-A Visit Information Start: 09/19/24 12:53 Freq: Status: Active Protocol: Document 09/22/24 09:05 NM (Rec: 09/22/24 09:48 NM [id number]) Out-Patient Physical Therapy Visit Information Visit Information Visit Type Treatment Note Visit Note KX after 19 visits Visit Start Time 09:06 Visit Stop Time 09:45 Visit Number 2 Evaluation Information Evaluation Date 09/19/24 Precautions Precautions DOS 07/08/24 L hemiarthroplasty: posterior hip precautions PT-OP-B Current Condition Start: 09/19/24 12:53 Freq: Status: Active Protocol: Document 09/19/24 14:34 NM (Rec: 09/19/24 15:42 NM [id number]) Current Condition History of Current Condition Onset Date DOS 07/08/25 Current Complaints balance, strength History of Current Condition Pt reports that she fell several months ago on her L side, caught her toe on her sneaker. She had a 07/08/24 ( fell on 07/07), had a L hemiarthroplasty. No complications with surgery. She had some physical therapy after surgery in a SNF, had [facility]. Pt reports does HEP 1x/day, but states not real faithful. Pt has been using a cane for mobility. States does not always use her cane at home but would not get very far without it. No falls since surgery but states that her balance is a little off. She does have a hx of falls, several years ago. Pt reports that she usually uses sandals, which caused her to trip when she caught herself on the rug . Pt lives with her granddaugher (21 years old). Pt has 5 steps onto her porch, has a daylight basement but does not go down to the basement except once in a while for laundry, garage rails; has rails on B side for all. Hx of pain in her ankles , knees, low back. Pt reports some compliance with hip precautions, she unsure if they're still in place. Pt unsure if she has another appt but saw PA at last appt. Treatment Goals Patient/Caregiver Goals get off of using the cane possible, improve balance, transfers PT-OP-C Subjective Start: 09/19/24 12:53 Freq: Status: Active Protocol: Document 09/22/24 09:05 NM (Rec: 09/22/24 09:48 NM [id number]) OP-PT Subjective Patient Comments Patient Comments Pt reports that her L hip is a little sore following exercises, a little more sore than usual. She presents with her cane. Informed that precuations lifted per PT conversation with RN at surgeon's office following evaluation. Reports soreness today PT-OP-D Balance Start: 09/19/24 15:42 Freq: Status: Active Protocol: Document 09/19/24 14:34 NM (Rec: 09/19/24 15:43 NM [id number]) Balance Tests Single Limb Standing Single Limb- Right 5 seconds Single Limb- Left 3 seconds Semi-Tandem Standing Semi-Tandem Standing Balance 5 seconds PT-OP-E Functional Tests Start: 09/19/24 12:53 Freq: Status: Active Protocol: Document 09/19/24 14:34 NM (Rec: 09/19/24 15:42 NM [id number]) Functional Tests Five Times Sit to Stand Test Score able to perform 1 STS without UE support Timed Up and Go (TUG) Score 18.8 sec Comments uses cane PT-OP-F Manual Assessment Start: 09/19/24 12:53 Freq: Status: Active Protocol: Document 09/19/24 14:34 NM (Rec: 09/19/24 15:42 NM [id number]) Manual Assessments Soft Tissue Assessment Soft Tissue Mobility Assessment Tightness along hip flexors, glutes PT-OP-G Mobility & Gait Start: 09/19/24 12:53 Freq: Status: Active Protocol: Document 09/19/24 14:34 NM (Rec: 09/19/24 15:42 NM [id number]) OP Mobility Evaluation Bed Mobility Rolling rolls B Supine to and from Sit needs Min assist supine > sit to avoid breaking hip flexion precautions IND sit > supine Transfers Sit to Stand Needs at least 1 assist from UE to stand up, puts LLE slightly forward Able to perform 1 rep without UE with cueing for weight shift and increased effort, no pain OP Gait Assessment Gait Gait Assistance Required: Independent Distance (Feet) 150 Assistive Devices Assistive Device Tripod Cane/Hurry Cane Gait Deviations General Gait Pattern Antalgic,Decreased Feet Clearance Factors Limiting Gait Function Factors Limiting Gait Function Decreased Activity Tolerance, Decreased Strength,Poor Balance PT-OP-J Posture/Palpation/Skin Start: 09/19/24 12:53 Freq: Status: Active Protocol: Document 09/19/24 14:34 NM (Rec: 09/19/24 15:42 NM [id number]) Palpation Assessment Location L hip Palpation Details Tenderness over posterolateral hip especially near glute/ greater trochanter Tightness, trigger points over hip flexors, TFL Skin Assessment Incisional Assessment Incision Appearance/Comments Scar healed, intact; no scabs. Less mobility distally PT-OP-K Range of Motion Start: 09/19/24 12:53 Freq: Status: Active Protocol: Document 09/19/24 14:34 NM (Rec: 09/19/24 15:42 NM [id number]) Hip Goniometric Range of Motion Hip Right Flexion w/Knee Flexed 105 Abduction 25 Left Flexion w/Knee Flexed 90 Abduction 25 PT-OP-M Strength Start: 09/19/24 12:53 Freq: Status: Active Protocol: Document 09/19/24 14:34 NM (Rec: 09/19/24 15:42 NM [id number]) Hip Strength Hip Manual Muscle Testing Right Flexion (L2) 4- Good- Extension (S1) 4- Good- Abduction 4- Good- Adduction 4- Good- External Rotation 4- Good- Internal Rotation 4- Good- Left Flexion (L2) 3+ Fair+ Abduction 3+ Fair+ Adduction 4- Good- Knee Strength Knee Manual Muscle Testing Right Flexion (S2) 4 Good Extension (L3) 4 Good Left Flexion (S2) 4 Good Extension (L3) 4 Good PT-OP-Q Treatments Start: 09/19/24 12:53 Freq: Status: Active Protocol: Document 09/22/24 09:05 NM (Rec: 09/22/24 09:48 NM [id number]) Cardio Equipment Recumbent Stepper (Sci-Fit) Duration (Minutes) 3 Resistance 3 Seat Position 12 Other warm up Therapeutic Exercises Supine Exercises bridge Supine Exercise Name HEP Side bilateral Resistance level 2 band at thighs Reps/Minutes 10 x 2 hold at top ROM Comments challenging SLR Side left Equipment Used PT assist at ankle, assist with lift through ROM Reps/Minutes 5 Comments partial ROM; good quad set; cued for set up and form hip ER stretch Supine Exercise Name trialed fig 4 w/o opp hip flex and with fig ER Side left Reps/Minutes 20 sec ea heel slides Supine Exercise Name HEP review Side left Reps/Minutes 15 Sitting Exercises LAQ Sitting Exercise Name HEP review Side bilateral Resistance level 1 band at ankles Reps/Minutes 15x2 Comments band added to HEP Standing Exercises hip adductor stretch Side bilateral Equipment Used B hands on //bars Reps/Minutes 10 breaths ea direction Comments monitored for pain, none with stretch Manual Therapy Treatment Consent Patient gave verbal consent for manual Yes treatment Soft Tissue Mobilization L hip Body Location adductors, hip flexors, quads, hamstrings, lateral glute Mobilization Type Rolling,Strumming Intensity/Depth Superficial Body Position Supine Comments Increased restrictions of adductores, hip flexors. Reduced but not completely eliminated with soft tissue mobilization, education on use of rolling pin at home PT-OP-T Assessment and Plan Start: 09/19/24 12:53 Freq: Status: Active Protocol: Document 09/22/24 09:05 NM (Rec: 09/22/24 09:48 NM [id number]) Physical Therapy Assessment Goals Four Impairment decreased BLE strength Short Term Goal (STG) Pt will able to perform at least 10 stairs with reciprocal pattern and at least 1 rail assist for improved household mobility STG Duration 8 weeks Shelter Goal (LTG) Pt will increased L hip strength to at least 4+/5 MMT in order to improve strength for gait, transfers, and stairs LTG Duration 10 weeks Three Impairment using AD for mobility, did not use AD prior to surgery Shelter Goal (LTG) If appropriate, pt will demonstrate normalized gait mechanics without AD during 6 MWT LTG Duration 10 weeks Two Impairment needs at least 1 UE to stand, demos LLE more forward Short Term Goal (STG) Pt will be able to perform at least 5 STS from standard chair with 1UE assist or less and maintain equal WB to demonstrate improved BLE strength for transfers STG Duration 5 weeks Shelter Goal (LTG) Pt will be able to perform at least 10 STS from standard chair using 1 UE or less to demonstrate improved BLE strength for transfers and gait LTG Duration 10 weeks One Impairment TUG 18.8 seconds with AD Layout Designer Goal (LTG) Pt will decreased TUG time with or without LRAD to <14 sec in order to demonstrate decreased fall risk LTG Duration 10 weeks Assessment Summary Assessment Pt tolerated session well but quickly fatigues due to decreased activity tolerance and needs frequent cues for remaining on task. Pt's hip flexors/quad most limited due to weakness; unable to perform SLR without PT assist, which limits pt's ability to ambulate without an AD and perform bed mobility. Added bridging to promote hip mobility while strengthening glutes as STS still challenging for pt to perform independently. Pt would continue to benefit from skilled PT for continued strengthening and flexibility in order to improve functional mobility. Physical Therapy Plan Frequency and Duration Frequency of Treatment 2x/Week Duration of treatment (weeks) 10 Plan of Care Start Date 09/19/24 Plan of Care End Date 12/02/24 Therapeutic Interventions Therapeutic Interventions Balance Training,Gait Training ,Home Exercise Program,Joint Mobilizations,Manual Therapy, Neuromuscular Re-education, Orthotic/Prosthetic Management ,Patient/Caregiver Education, Self-Care/Home Management, Sensory Integration,Soft Tissue Mobilization,Taping, Therapeutic Activities, Therapeutic Exercises Modalities Cold Pack/Ice Massage,Electric Stimulation,Hot Packs, Ultrasound Next Visit Focus/Plan Next Note Type Treatment Note Next Visit Plan No hip precautions per 09/19 conversation with weigher and crusher at surgeon's office Review HEP as needed. Progress quad and glute strength and improve hip ROM as able. Bridge vs progress to STS training w/ 1 UE support ( progress), leg press and step up for strengthening. lateral stepping Balance training: stable and unstable surfaces, SLS, semitandem stance
--- NOTE | 2024-10-10 15:38 | PT.OTN ---
Current Diagnoses Stiffness of left hip, not elsewhere classified (10/10/24) Other lack of coordination (10/10/24) Weakness (10/10/24) Fracture of unspecified part of neck of left femur, initial encounter for closed fracture (10/10/24) Physical Therapy Treatment Note PT-OP-A Visit Information Start: 09/19/24 12:53 Freq: Status: Active Protocol: Document 10/10/24 13:47 NM (Rec: 10/10/24 14:33 NM [id number]) Out-Patient Physical Therapy Visit Information Visit Information Visit Type Treatment Note Visit Note KX after 19 visits Visit Start Time 13:48 Visit Stop Time 14:30 Visit Number 3 Evaluation Information Evaluation Date 09/19/24 Precautions Precautions DOS 07/08/24 L hemiarthroplasty: no hip precautions per RN call on PT-OP-B Current Condition Start: 09/19/24 12:53 Freq: Status: Active Protocol: Document 09/19/24 14:34 NM (Rec: 09/19/24 15:42 NM [id number]) Current Condition History of Current Condition Onset Date DOS 07/08/25 Current Complaints balance, strength History of Current Condition Pt reports that she fell several months ago on her L side, caught her toe on her sneaker. She had a 07/08/24 ( fell on 07/07), had a L hemiarthroplasty. No complications with surgery. She had some physical therapy after surgery in a SNF, had [facility]. Pt reports does HEP 1x/day, but states not real faithful. Pt has been using a cane for mobility. States does not always use her cane at home but would not get very far without it. No falls since surgery but states that her balance is a little off. She does have a hx of falls, several years ago. Pt reports that she usually uses sandals, which caused her to trip when she caught herself on the rug . Pt lives with her granddaugher (21 years old). Pt has 5 steps onto her porch, has a daylight basement but does not go down to the basement except once in a while for laundry, garage rails; has rails on B side for all. Hx of pain in her ankles , knees, low back. Pt reports some compliance with hip precautions, she unsure if they're still in place. Pt unsure if she has another appt but saw PA at last appt. Treatment Goals Patient/Caregiver Goals get off of using the cane possible, improve balance, transfers PT-OP-C Subjective Start: 09/19/24 12:53 Freq: Status: Active Protocol: Document 10/10/24 13:47 NM (Rec: 10/10/24 14:33 NM [id number]) OP-PT Subjective Patient Comments Patient Comments Pt reports that she has not been doing supine exercises only standing exercises. She has not been using spc very much, has been using her walking pole instead (has been outdoors); not using spc or walking stick at home. states has a habit of holding on to furniture and other support, due to fear of falling. PT-OP-D Balance Start: 09/19/24 15:42 Freq: Status: Active Protocol: Document 09/19/24 14:34 NM (Rec: 09/19/24 15:43 NM [id number]) Balance Tests Single Limb Standing Single Limb- Right 5 seconds Single Limb- Left 3 seconds Semi-Tandem Standing Semi-Tandem Standing Balance 5 seconds PT-OP-E Functional Tests Start: 09/19/24 12:53 Freq: Status: Active Protocol: Document 09/19/24 14:34 NM (Rec: 09/19/24 15:42 NM [id number]) Functional Tests Five Times Sit to Stand Test Score able to perform 1 STS without UE support Timed Up and Go (TUG) Score 18.8 sec Comments uses cane PT-OP-F Manual Assessment Start: 09/19/24 12:53 Freq: Status: Active Protocol: Document 09/19/24 14:34 NM (Rec: 09/19/24 15:42 NM [id number]) Manual Assessments Soft Tissue Assessment Soft Tissue Mobility Assessment Tightness along hip flexors, glutes PT-OP-G Mobility & Gait Start: 09/19/24 12:53 Freq: Status: Active Protocol: Document 09/19/24 14:34 NM (Rec: 09/19/24 15:42 NM [id number]) OP Mobility Evaluation Bed Mobility Rolling rolls B Supine to and from Sit needs Min assist supine > sit to avoid breaking hip flexion precautions IND sit > supine Transfers Sit to Stand Needs at least 1 assist from UE to stand up, puts LLE slightly forward Able to perform 1 rep without UE with cueing for weight shift and increased effort, no pain OP Gait Assessment Gait Gait Assistance Required: Independent Distance (Feet) 150 Assistive Devices Assistive Device Tripod Cane/Hurry Cane Gait Deviations General Gait Pattern Antalgic,Decreased Feet Clearance Factors Limiting Gait Function Factors Limiting Gait Function Decreased Activity Tolerance, Decreased Strength,Poor Balance PT-OP-J Posture/Palpation/Skin Start: 09/19/24 12:53 Freq: Status: Active Protocol: Document 09/19/24 14:34 NM (Rec: 09/19/24 15:42 NM [id number]) Palpation Assessment Location L hip Palpation Details Tenderness over posterolateral hip especially near glute/ greater trochanter Tightness, trigger points over hip flexors, TFL Skin Assessment Incisional Assessment Incision Appearance/Comments Scar healed, intact; no scabs. Less mobility distally PT-OP-K Range of Motion Start: 09/19/24 12:53 Freq: Status: Active Protocol: Document 09/19/24 14:34 NM (Rec: 09/19/24 15:42 NM [id number]) Hip Goniometric Range of Motion Hip Right Flexion w/Knee Flexed 105 Abduction 25 Left Flexion w/Knee Flexed 90 Abduction 25 PT-OP-M Strength Start: 09/19/24 12:53 Freq: Status: Active Protocol: Document 09/19/24 14:34 NM (Rec: 09/19/24 15:42 NM [id number]) Hip Strength Hip Manual Muscle Testing Right Flexion (L2) 4- Good- Extension (S1) 4- Good- Abduction 4- Good- Adduction 4- Good- External Rotation 4- Good- Internal Rotation 4- Good- Left Flexion (L2) 3+ Fair+ Abduction 3+ Fair+ Adduction 4- Good- Knee Strength Knee Manual Muscle Testing Right Flexion (S2) 4 Good Extension (L3) 4 Good Left Flexion (S2) 4 Good Extension (L3) 4 Good PT-OP-Q Treatments Start: 09/19/24 12:53 Freq: Status: Active Protocol: Document 10/10/24 13:47 NM (Rec: 10/10/24 14:33 NM [id number]) Therapeutic Exercises Supine Exercises SLR Supine Exercise Name in PT only Side bilateral Reps/Minutes 5 R; 2x5 L assisted (PT support, dec support w/ inc reps) Comments cued quad set, form; min pain initially Sitting Exercises LAQ Sitting Exercise Name HEP review Side bilateral Resistance level 1 band ankles Reps/Minutes 10x3 Comments fatiguing; edu use of band at home Standing Exercises step up Standing Exercise Name 6 step Side bilateral Equipment Used flat hand support balance Reps/Minutes 10 ea Comments dec knee pain w/ reps, for glute strength; cued form hip flexor stretch Standing Exercise Name trialed in PT Side bilateral Equipment Used 2nd step, hand support Reps/Minutes 2x30 Comments inc time needed for set up; needs cues form hip extension Standing Exercise Name HEP Side bilateral Resistance level 2 band thighs Equipment Used 1 hand support for balance Reps/Minutes 10 ea Comments fatigues quickly hip abduction Standing Exercise Name HEP Side bilateral Resistance AROM 1st set, level 2 band thighs 2nd set Equipment Used 1 hand on bar Reps/Minutes 10 ea Comments cued form, no pain hip flexion Standing Exercise Name marching- HEP Side bilateral Resistance level 2 band at thighs Equipment Used 1 hand support for balance Reps/Minutes 10 ea Comments fatigues quickly Manual Therapy Treatment Consent Patient gave verbal consent for manual Yes treatment Soft Tissue Mobilization L hip Body Location adductors, hip flexors, quads, hamstrings, lateral glute Mobilization Type Rolling,Strumming Intensity/Depth Superficial Body Position Supine Comments Increased restrictions of adductors, quads, hip flexors. Less tenderness at hip flexors today Neuro Re-Education Treatment Balance Activities SLS Comments 1. for time: R 10 sec, L 4 sec 2. with 1 finger support, 2x10 ea PT-OP-T Assessment and Plan Start: 09/19/24 12:53 Freq: Status: Active Protocol: Document 10/10/24 13:47 NM (Rec: 10/10/24 14:33 NM [id number]) Physical Therapy Assessment Goals Four Impairment decreased BLE strength Short Term Goal (STG) Pt will able to perform at least 10 stairs with reciprocal pattern and at least 1 rail assist for improved household mobility STG Duration 8 weeks Child Development Director Goal (LTG) Pt will increased L hip strength to at least 4+/5 MMT in order to improve strength for gait, transfers, and stairs LTG Duration 10 weeks Three Impairment using AD for mobility, did not use AD prior to surgery Half-Way Goal (LTG) If appropriate, pt will demonstrate normalized gait mechanics without AD during 6 MWT LTG Duration 10 weeks Two Impairment needs at least 1 UE to stand, demos LLE more forward Short Term Goal (STG) Pt will be able to perform at least 5 STS from standard chair with 1UE assist or less and maintain equal WB to demonstrate improved BLE strength for transfers STG Duration 5 weeks Half-Way Goal (LTG) Pt will be able to perform at least 10 STS from standard chair using 1 UE or less to demonstrate improved BLE strength for transfers and gait LTG Duration 10 weeks One Impairment TUG 18.8 seconds with AD Half-Way Goal (LTG) Pt will decreased TUG time with or without LRAD to <14 sec in order to demonstrate decreased fall risk LTG Duration 10 weeks Assessment Summary Assessment Pt fatigues quickly. Demos weakness of hip flexors, glutes. SLR still challenging for pt, but able to perform with less PT assist today, although still needs PT hand to guide and initially assist with lift. Initiated standing hip strengthening for improved carryover and compliance at home. Pt needs cues for correct execution and to limit trunk compensations as fatigues; L hip weaker than R hip. Able to perform with band . Trialed step ups for improved functional mobility, glute strength; needs hand support for balance. Limited by knee pain with transfers and STS. Still has restrictions at L adductor, continued to recommend self soft tissue mobilization at home. Pt would continue to benefit from skilled PT for progressive strengthening in order to improve balance, gait , and ability to perform transfers safely without AD. Physical Therapy Plan Frequency and Duration Frequency of Treatment 2x/Week Duration of treatment (weeks) 10 Plan of Care Start Date 09/19/24 Plan of Care End Date 12/02/24 Therapeutic Interventions Therapeutic Interventions Balance Training,Gait Training ,Home Exercise Program,Joint Mobilizations,Manual Therapy, Neuromuscular Re-education, Orthotic/Prosthetic Management ,Patient/Caregiver Education, Self-Care/Home Management, Sensory Integration,Soft Tissue Mobilization,Taping, Therapeutic Activities, Therapeutic Exercises Modalities Cold Pack/Ice Massage,Electric Stimulation,Hot Packs, Ultrasound Next Visit Focus/Plan Next Note Type Treatment Note Next Visit Plan No hip precautions per 09/19 conversation with post hole digger at surgeon's office STS training w/ 1 UE support ( progress), leg press and step up for strengthening. initiate lateral stepping vs review hip abd/ext/flex. Cont with SLR (assist > no assist). Determine if SLS ok for HEP. Progress to ambulation w/o spc as able Balance training: stable and unstable surfaces, SLS, semitandem stance
--- NOTE | 2024-10-12 15:39 | PT.OTN ---
Current Diagnoses Stiffness of left hip, not elsewhere classified (10/12/24) Other lack of coordination (10/12/24) Weakness (10/12/24) Fracture of unspecified part of neck of left femur, initial encounter for closed fracture (10/12/24) Physical Therapy Treatment Note PT-OP-A Visit Information Start: 09/19/24 12:53 Freq: Status: Active Protocol: Document 10/12/24 13:52 NBM (Rec: 10/13/24 15:38 NB [id number]-) Out-Patient Physical Therapy Visit Information Visit Information Visit Type Treatment Note Visit Note KX after 19 visits Visit Start Time 13:52 Visit Stop Time 14:40 Visit Number 4 Number of DIGITAL SOLUTIONS ARCHITECT Visits 1 Evaluation Information Evaluation Date 09/19/24 Precautions Precautions DOS 07/08/24 L hemiarthroplasty: no hip precautions per RN call on PT-OP-B Current Condition Start: 09/19/24 12:53 Freq: Status: Active Protocol: Document 09/19/24 14:34 NM (Rec: 09/19/24 15:42 NM [id number]) Current Condition History of Current Condition Onset Date DOS 07/08/25 Current Complaints balance, strength History of Current Condition Pt reports that she fell several months ago on her L side, caught her toe on her sneaker. She had a 07/08/24 ( fell on 07/07), had a L hemiarthroplasty. No complications with surgery. She had some physical therapy after surgery in a SNF, had [facility]. Pt reports does HEP 1x/day, but states not real faithful. Pt has been using a cane for mobility. States does not always use her cane at home but would not get very far without it. No falls since surgery but states that her balance is a little off. She does have a hx of falls, several years ago. Pt reports that she usually uses sandals, which caused her to trip when she caught herself on the rug . Pt lives with her granddaugher (21 years old). Pt has 5 steps onto her porch, has a daylight basement but does not go down to the basement except once in a while for laundry, garage rails; has rails on B side for all. Hx of pain in her ankles , knees, low back. Pt reports some compliance with hip precautions, she unsure if they're still in place. Pt unsure if she has another appt but saw PA at last appt. Treatment Goals Patient/Caregiver Goals get off of using the cane possible, improve balance, transfers PT-OP-C Subjective Start: 09/19/24 12:53 Freq: Status: Active Protocol: Document 10/12/24 13:52 NBM (Rec: 10/13/24 15:38 NBM [phone]-) OP-PT Subjective Patient Comments Patient Comments Aleshia reports L hip feels achey but not really painful. he admits to difficulty performing HEP consistently and apprehension with balance and sit to stands. She goes up and down stairs at an angle to do laundry and hold rail. PT-OP-D Balance Start: 09/19/24 15:42 Freq: Status: Active Protocol: Document 09/19/24 14:34 NM (Rec: 09/19/24 15:43 NM [id number]) Balance Tests Single Limb Standing Single Limb- Right 5 seconds Single Limb- Left 3 seconds Semi-Tandem Standing Semi-Tandem Standing Balance 5 seconds PT-OP-E Functional Tests Start: 09/19/24 12:53 Freq: Status: Active Protocol: Document 09/19/24 14:34 NM (Rec: 09/19/24 15:42 NM [id number]) Functional Tests Five Times Sit to Stand Test Score able to perform 1 STS without UE support Timed Up and Go (TUG) Score 18.8 sec Comments uses cane PT-OP-F Manual Assessment Start: 09/19/24 12:53 Freq: Status: Active Protocol: Document 09/19/24 14:34 NM (Rec: 09/19/24 15:42 NM [id number]) Manual Assessments Soft Tissue Assessment Soft Tissue Mobility Assessment Tightness along hip flexors, glutes PT-OP-G Mobility & Gait Start: 09/19/24 12:53 Freq: Status: Active Protocol: Document 09/19/24 14:34 NM (Rec: 09/19/24 15:42 NM [id number]) OP Mobility Evaluation Bed Mobility Rolling rolls B Supine to and from Sit needs Min assist supine > sit to avoid breaking hip flexion precautions IND sit > supine Transfers Sit to Stand Needs at least 1 assist from UE to stand up, puts LLE slightly forward Able to perform 1 rep without UE with cueing for weight shift and increased effort, no pain OP Gait Assessment Gait Gait Assistance Required: Independent Distance (Feet) 150 Assistive Devices Assistive Device Tripod Cane/Hurry Cane Gait Deviations General Gait Pattern Antalgic,Decreased Feet Clearance Factors Limiting Gait Function Factors Limiting Gait Function Decreased Activity Tolerance, Decreased Strength,Poor Balance PT-OP-J Posture/Palpation/Skin Start: 09/19/24 12:53 Freq: Status: Active Protocol: Document 09/19/24 14:34 NM (Rec: 09/19/24 15:42 NM [id number]) Palpation Assessment Location L hip Palpation Details Tenderness over posterolateral hip especially near glute/ greater trochanter Tightness, trigger points over hip flexors, TFL Skin Assessment Incisional Assessment Incision Appearance/Comments Scar healed, intact; no scabs. Less mobility distally PT-OP-K Range of Motion Start: 09/19/24 12:53 Freq: Status: Active Protocol: Document 09/19/24 14:34 NM (Rec: 09/19/24 15:42 NM [id number]) Hip Goniometric Range of Motion Hip Right Flexion w/Knee Flexed 105 Abduction 25 Left Flexion w/Knee Flexed 90 Abduction 25 PT-OP-M Strength Start: 09/19/24 12:53 Freq: Status: Active Protocol: Document 09/19/24 14:34 NM (Rec: 09/19/24 15:42 NM [id number]) Hip Strength Hip Manual Muscle Testing Right Flexion (L2) 4- Good- Extension (S1) 4- Good- Abduction 4- Good- Adduction 4- Good- External Rotation 4- Good- Internal Rotation 4- Good- Left Flexion (L2) 3+ Fair+ Abduction 3+ Fair+ Adduction 4- Good- Knee Strength Knee Manual Muscle Testing Right Flexion (S2) 4 Good Extension (L3) 4 Good Left Flexion (S2) 4 Good Extension (L3) 4 Good PT-OP-Q Treatments Start: 09/19/24 12:53 Freq: Status: Active Protocol: Document 10/12/24 13:52 NBM (Rec: 10/13/24 15:38 NBM [id number]-) Therapeutic Exercises Sitting Exercises STS Sitting Exercise Name sit to stand 1 UEassist CGA> fwd reach Osman Equipment Used standard mesh chair Reps/Minutes 2 UE assist x1, 1UEx5, fwd reach x10 Comments cue ant weightshift, hip hinge , ecc. control, pt self- corrects for equal WB hip abduction Sitting Exercise Name clams- HEP Side bilateral Resistance level 2 Reps/Minutes 2x10 x3 SH LAQ Sitting Exercise Name HEP review Side bilateral Resistance level 1 band ankles Reps/Minutes 10x3 Standing Exercises hip extension Standing Exercise Name HEP review Side bilateral Resistance level 2 band thighs Equipment Used 2 hand support on chairback for balance Reps/Minutes 10 ea Comments tactile cues for smaller range , vc for straight leg; painfree hip abduction Standing Exercise Name HEP review Side bilateral Resistance Lvl 2 band above knees Equipment Used 2 hand support on chairback for balance Reps/Minutes 10 ea Comments cued form, painfree Self-Care/Home Management Treatment Education Patient Education Body Mechanics,Home Exercise Program,Joint Protection, Posture,Safety Other Education Discussion w/ pt re: barriers to HEP carryover at home including depression and sedentary lifestyle since COVID pandemic and spouse's w/ edu to pt for how HEP contributes to goals and pt expressing understanding and agreement to perform HEP more consistently. Copies of HEP HOs to date provided. Pt also edu re: LE alignment and maintaining a more neutral foot position for stair ascent /descent to improve pain. -Edu re: body mechanics with STS and how to perform hip hinge painfree. PT-OP-T Assessment and Plan Start: 09/19/24 12:53 Freq: Status: Active Protocol: Document 10/12/24 13:52 [facility] (Rec: 10/13/24 15:38 [facility] [phone]-) Physical Therapy Assessment Goals Four Impairment decreased BLE strength Short Term Goal (STG) Pt will able to perform at least 10 stairs with reciprocal pattern and at least 1 rail assist for improved household mobility STG Duration 8 weeks Instrument Mechanic Goal (LTG) Pt will increased L hip strength to at least 4+/5 MMT in order to improve strength for gait, transfers, and stairs LTG Duration 10 weeks Three Impairment using AD for mobility, did not use AD prior to surgery Instrument Mechanic Goal (LTG) If appropriate, pt will demonstrate normalized gait mechanics without AD during 6 MWT LTG Duration 10 weeks Two Impairment needs at least 1 UE to stand, demos LLE more forward Short Term Goal (STG) Pt will be able to perform at least 5 STS from standard chair with 1UE assist or less and maintain equal WB to demonstrate improved BLE strength for transfers 10/12/24: Pt demos STS w/ 1UE w/ cues for anterior weightshift and gluteal activation. She performs STS x10 w fwd reach (no UE support ) with Osman and improves eccentric control w/ repetition. STG Duration 5 weeks [facility] Goal (LTG) Pt will be able to perform at least 10 STS from standard chair using 1 UE or less to demonstrate improved BLE strength for transfers and gait LTG Duration 10 weeks One Impairment TUG 18.8 seconds with AD Instrument Mechanic Goal (LTG) Pt will decreased TUG time with or without LRAD to <14 sec in order to demonstrate decreased fall risk LTG Duration 10 weeks Assessment Summary Assessment Treatment focus on Short Term Goal 2 for 5x STS w/ 1UE or less and equal WB, and self- care. Pt demos STS w/ 1UE w/ cues for anterior weightshift, hip hinge and gluteal activation. She performs STS x10 w fwd reach (no UE support ) with Osman and improves eccentric control w/ repetition. She self-corrects for equal weightbearing and demos improved confidence. Significant time spent w/ pt re: identifying barriers to HEP carryover at home including depression and sedentary lifestyle since COVID pandemic and spouse's w/ edu to pt for how HEP contributes to goals and pt expressing understanding and agreement to perform HEP more consistently. Copies of HEP HOs to date provided. Pt also edu re: LE alignment and maintaining a more neutral foot position for stair ascent /descent to improve pain. Physical Therapy Plan Frequency and Duration Frequency of Treatment 2x/Week Duration of treatment (weeks) 10 Plan of Care Start Date 09/19/24 Plan of Care End Date 12/02/24 Therapeutic Interventions Therapeutic Interventions Balance Training,Gait Training ,Home Exercise Program,Joint Mobilizations,Manual Therapy, Neuromuscular Re-education, Orthotic/Prosthetic Management ,Patient/Caregiver Education, Self-Care/Home Management, Sensory Integration,Soft Tissue Mobilization,Taping, Therapeutic Activities, Therapeutic Exercises Modalities Cold Pack/Ice Massage,Electric Stimulation,Hot Packs, Ultrasound Next Visit Focus/Plan Next Note Type Treatment Note Next Visit Plan No hip precautions per 09/19 conversation with grocery associate at surgeon's office STS training w/ 1 UE support ( progress), leg press and step up for strengthening. initiate lateral stepping vs review hip abd/ext/flex. Cont with SLR (assist > no assist). Determine if SLS ok for HEP. Progress to ambulation w/o spc as able Balance training: stable and unstable surfaces, SLS, semitandem stance
--- NOTE | 2024-10-18 16:40 | PT.OTN ---
Physical Therapy Treatment Note PT-OP-A Visit Information Start: 09/19/24 12:53 Freq: Status: Active Protocol: Document 10/18/24 13:47 NBM (Rec: 11/04/24 03:59 [facility] [phone]-) Out-Patient Physical Therapy Visit Information Visit Information Visit Type Treatment Note Visit Note KX after 19 visits Visit Start Time 13:47 Visit Stop Time 14:30 Visit Number 5 Number of LOAN INTER[employer]GAGE Visits 2 Evaluation Information Evaluation Date 09/19/24 Precautions Precautions DOS 07/08/24 L hemiarthroplasty: no hip precautions per RN call on PT-OP-C Subjective Start: 09/19/24 12:53 Freq: Status: Active Protocol: Document 10/18/24 13:47 NBM (Rec: 11/04/24 03:59 [facility] [phone]-) OP-PT Subjective Patient Comments Patient Comments Pt reports good response to last visit. She is preparing to move and has granddaughter doing lifting for her so she does not have to. She does exercises when she remembers to but not consistently. PT-OP-Q Treatments Start: 09/19/24 12:53 Freq: Status: Active Protocol: Document 10/18/24 13:47 NBM (Rec: 11/04/24 03:59 [facility] [phone]-) Therapeutic Exercises Sitting Exercises STS Sitting Exercise Name sit to stand fwd reach Osman> CGA (HEP review) Side bilateral Resistance lvl 1 band thighs Equipment Used std mesh chair Reps/Minutes 10 Comments cue ant weightshift, hip hinge , ecc. control (challenging), hip abduction Sitting Exercise Name clams- HEP Side bilateral Resistance level 2 Reps/Minutes 2x10 x3 SH LAQ Sitting Exercise Name HEP review Side bilateral Resistance level 1 band ankles Reps/Minutes 10x3 Comments initial vc eccentric control Standing Exercises calf stretch Standing Exercise Name 1. gasrocnemius 2. soleus Side bilateral Equipment Used handrail Reps/Minutes x30s ea Comments added to HEP side steps Standing Exercise Name added to HEP Side bilateral Resistance Lvl 1 Tb above thighs Equipment Used handrail prn Reps/Minutes 2x10 ft ea Comments cues for upright posture, neutral foot position hip flexor stretch Standing Exercise Name 1. using step 2. staggered stance on ground w/ rail ( added to HEP) Side bilateral Equipment Used 2nd step, hand support Reps/Minutes 2x30 Comments verbal cues foot positioning Neuro Re-Education Treatment Balance Activities tandem Details 1. balance B 2. fwd walking ( CGA>Osman) Surface firm Equipment line on carpet Reps/Duration 1. multiple trials 2. 4 x8 ft ea Comments cues for gluteal activation w/ upright posture. tandem walking control and confidence improves w/ repetition and cues for gluteal activation, slower pacing, and distant focal point. PT-OP-T Assessment and Plan Start: 09/19/24 12:53 Freq: Status: Active Protocol: Document 10/18/24 13:47 NB (Rec: 11/04/24 03:59 NB [id number]-) Physical Therapy Assessment Goals Four Impairment decreased BLE strength Short Term Goal (STG) Pt will able to perform at least 10 stairs with reciprocal pattern and at least 1 rail assist for improved household mobility STG Duration 8 weeks MET Mcfp Goal (LTG) Pt will increased L hip strength to at least 4+/5 MMT in order to improve strength for gait, transfers, and stairs LTG Duration 10 weeks Three Impairment using AD for mobility, did not use AD prior to surgery Front Office Supervisor Goal (LTG) If appropriate, pt will demonstrate normalized gait mechanics without AD during 6 MWT LTG Duration 10 weeks MET Two Impairment needs at least 1 UE to stand, demos LLE more forward Short Term Goal (STG) Pt will be able to perform at least 5 STS from standard chair with 1UE assist or less and maintain equal WB to demonstrate improved BLE strength for transfers 10/12/24: Pt demos STS w/ 1UE w/ cues for anterior weightshift and gluteal activation. She performs STS x10 w fwd reach (no UE support ) with Osman and improves eccentric control w/ repetition. 10/20/24: 5 STS from standard chair, no UE assist, increased effort, decreased eccentric control STG Duration 5 weeks Mcfp Goal (LTG) Pt will be able to perform at least 10 STS from standard chair using 1 UE or less to demonstrate improved BLE strength for transfers and gait LTG Duration 10 weeks One Impairment TUG 18.8 seconds with AD Mcfp Goal (LTG) Pt will decreased TUG time with or without LRAD to <14 sec in order to demonstrate decreased fall risk LTG Duration 10 weeks Assessment Summary Assessment Aleshia hernandez improving LE strength with sit to stands w/ occasional cue for hip hinge, but continues to be challenged w/ eccentric control without UE support. Tandem walking balance control and confidence improve w/ repetition and cues for gluteal activation, slower pacing, and distant focal point. Added to HEP: resisted sidesteps Lvl 1 Tb, standing calf stretch, standing hip flexor stretch - no HO provided due to technical issues, provide next session. Physical Therapy Plan Frequency and Duration Frequency of Treatment 2x/Week Duration of treatment (weeks) 10 Plan of Care Start Date 09/19/24 Plan of Care End Date 12/02/24 Next Visit Focus/Plan Next Note Type Treatment Note Next Visit Plan Next: Provide HEP HO: resisted sidesteps Lvl 1, standing calf stretch, standing hip flexor stretch. POC:No hip precautions per conversation with joinery factory worker at surgeon's office STS training w/ 1 UE support ( progress), leg press and step up for strengthening. initiate lateral stepping vs review hip abd/ext/flex. Cont with SLR (assist > no assist). Determine if SLS ok for HEP. Progress to ambulation w/o spc as able Balance training: stable and unstable surfaces, SLS, semitandem stance
--- NOTE | 2024-10-20 12:59 | PT.OTN ---
Current Diagnoses Stiffness of left hip, not elsewhere classified (10/20/24) Other lack of coordination (10/20/24) Weakness (10/20/24) Fracture of unspecified part of neck of left femur, initial encounter for closed fracture (10/20/24) Physical Therapy Treatment Note PT-OP-A Visit Information Start: 09/19/24 12:53 Freq: Status: Active Protocol: Document 10/20/24 08:20 NM (Rec: 10/20/24 09:02 NM [id number]) Out-Patient Physical Therapy Visit Information Visit Information Visit Type Progress Note Visit Note KX after 19 visits Visit Start Time 08:20 Visit Stop Time 09:02 Visit Number 6 Evaluation Information Evaluation Date 09/19/24 Precautions Precautions DOS 07/08/24 L hemiarthroplasty: no hip precautions per RN call on PT-OP-B Current Condition Start: 09/19/24 12:53 Freq: Status: Active Protocol: Document 09/19/24 14:34 NM (Rec: 09/19/24 15:42 NM [id number]) Current Condition History of Current Condition Onset Date DOS 07/08/25 Current Complaints balance, strength History of Current Condition Pt reports that she fell several months ago on her L side, caught her toe on her sneaker. She had a 07/08/24 ( fell on 07/07), had a L hemiarthroplasty. No complications with surgery. She had some physical therapy after surgery in a SNF, had [facility]. Pt reports does HEP 1x/day, but states not real faithful. Pt has been using a cane for mobility. States does not always use her cane at home but would not get very far without it. No falls since surgery but states that her balance is a little off. She does have a hx of falls, several years ago. Pt reports that she usually uses sandals, which caused her to trip when she caught herself on the rug . Pt lives with her granddaugher (21 years old). Pt has 5 steps onto her porch, has a daylight basement but does not go down to the basement except once in a while for laundry, garage rails; has rails on B side for all. Hx of pain in her ankles , knees, low back. Pt reports some compliance with hip precautions, she unsure if they're still in place. Pt unsure if she has another appt but saw PA at last appt. Treatment Goals Patient/Caregiver Goals get off of using the cane possible, improve balance, transfers PT-OP-C Subjective Start: 09/19/24 12:53 Freq: Status: Active Protocol: Document 10/20/24 08:20 NM (Rec: 10/20/24 09:02 NM [id number]) OP-PT Subjective Patient Comments Patient Comments Pt reports that she has a little ache in her L hip depending on how she moves. Has been packing to move. Not been doing a lot of bending ( raises to height). She does report that she still gets achy along L lateral hip to knee. Since starting PT, pt reports that she is ambulating better, not using spc unless going on a long walk, improved balance. Pt still needs to address balance, strength. PT-OP-D Balance Start: 09/19/24 15:42 Freq: Status: Active Protocol: Document 09/19/24 14:34 NM (Rec: 09/19/24 15:43 NM [id number]) Balance Tests Single Limb Standing Single Limb- Right 5 seconds Single Limb- Left 3 seconds Semi-Tandem Standing Semi-Tandem Standing Balance 5 seconds PT-OP-E Functional Tests Start: 09/19/24 12:53 Freq: Status: Active Protocol: Document 09/19/24 14:34 NM (Rec: 09/19/24 15:42 NM [id number]) Functional Tests Five Times Sit to Stand Test Score able to perform 1 STS without UE support Timed Up and Go (TUG) Score 18.8 sec Comments uses cane PT-OP-F Manual Assessment Start: 09/19/24 12:53 Freq: Status: Active Protocol: Document 09/19/24 14:34 NM (Rec: 09/19/24 15:42 NM [id number]) Manual Assessments Soft Tissue Assessment Soft Tissue Mobility Assessment Tightness along hip flexors, glutes PT-OP-G Mobility & Gait Start: 09/19/24 12:53 Freq: Status: Active Protocol: Document 09/19/24 14:34 NM (Rec: 09/19/24 15:42 NM [id number]) OP Mobility Evaluation Bed Mobility Rolling rolls B Supine to and from Sit needs Min assist supine > sit to avoid breaking hip flexion precautions IND sit > supine Transfers Sit to Stand Needs at least 1 assist from UE to stand up, puts LLE slightly forward Able to perform 1 rep without UE with cueing for weight shift and increased effort, no pain OP Gait Assessment Gait Gait Assistance Required: Independent Distance (Feet) 150 Assistive Devices Assistive Device Tripod Cane/Hurry Cane Gait Deviations General Gait Pattern Antalgic,Decreased Feet Clearance Factors Limiting Gait Function Factors Limiting Gait Function Decreased Activity Tolerance, Decreased Strength,Poor Balance PT-OP-J Posture/Palpation/Skin Start: 09/19/24 12:53 Freq: Status: Active Protocol: Document 09/19/24 14:34 NM (Rec: 09/19/24 15:42 NM [id number]) Palpation Assessment Location L hip Palpation Details Tenderness over posterolateral hip especially near glute/ greater trochanter Tightness, trigger points over hip flexors, TFL Skin Assessment Incisional Assessment Incision Appearance/Comments Scar healed, intact; no scabs. Less mobility distally PT-OP-K Range of Motion Start: 09/19/24 12:53 Freq: Status: Active Protocol: Document 10/20/24 08:20 NM (Rec: 10/20/24 09:02 NM [id number]) Hip Goniometric Range of Motion Hip Right Flexion w/Knee Flexed 105 Abduction 25 Left Flexion w/Knee Flexed 100 Abduction 25 PT-OP-M Strength Start: 09/19/24 12:53 Freq: Status: Active Protocol: Document 10/20/24 08:20 NM (Rec: 10/20/24 09:02 NM [id number]) Hip Strength Hip Manual Muscle Testing Right Flexion (L2) 4- Good- Extension (S1) 4- Good- Abduction 4- Good- Adduction 4- Good- External Rotation 4- Good- Internal Rotation 4- Good- Left Flexion (L2) 4- Good- Extension (S1) 4- Good- Abduction 4- Good- Adduction 4 Good External Rotation 3 Fair Internal Rotation 3 Fair Comments 10/20/24: able to perform SLR now Knee Strength Knee Manual Muscle Testing Right Flexion (S2) 4 Good Extension (L3) 4 Good Left Flexion (S2) 4 Good Extension (L3) 4 Good PT-OP-Q Treatments Start: 09/19/24 12:53 Freq: Status: Active Protocol: Document 10/20/24 08:20 NM (Rec: 10/20/24 09:02 NM [id number]) Therapeutic Exercises Supine Exercises SLR Side left Reps/Minutes 3 Comments partial ROM, no assist needed; challenging but not painful, fatigue Sitting Exercises STS Sitting Exercise Name STS Side bilateral Resistance lvl 1 band thighs Equipment Used std mesh chair, no UE assist; close SBA Reps/Minutes 5, 5- increased effort Comments foam pad 2nd set d/t dec ecc control; better foot place Standing Exercises side steps Standing Exercise Name HEP review Side bilateral Resistance level 1 band at thighs Equipment Used B hand support for balance as needed Reps/Minutes 2x20 ft ea Comments good glute activation hip flexion Standing Exercise Name marching- HEP review Side bilateral Resistance level 1 band at thighs Reps/Minutes 15 ea Comments cued form, less fatigue Other Exercises 6 MWT Equipment Used no AD Reps/Minutes 1223 ft Comments 1 instance of stumble w/o fall d/t foot catching; no hip pain but fatigue stairs Resistance reciprocal Equipment Used 1 rail assist Reps/Minutes 3 sets x 4 stairs, 6 steps Comments maintains control, no pain Manual Therapy Treatment Consent Patient gave verbal consent for manual Yes treatment Soft Tissue Mobilization L hip Body Location adductors, hip flexors, quads, hamstrings, lateral glute Mobilization Type Rolling,Strumming,Sustained Pressure Intensity/Depth Superficial Body Position Supine Comments Mild tenderness of adductors and quads. No tenderness at glutes. PT-OP-T Assessment and Plan Start: 09/19/24 12:53 Freq: Status: Active Protocol: Document 10/20/24 08:20 NM (Rec: 10/20/24 09:02 NM [id number]) Physical Therapy Assessment Goals Four Impairment decreased BLE strength Short Term Goal (STG) Pt will able to perform at least 10 stairs with reciprocal pattern and at least 1 rail assist for improved household mobility 10/20/24: 12 stairs 6 step STG Duration 8 weeks MET [facility] Goal (LTG) Pt will increased L hip strength to at least 4+/5 MMT in order to improve strength for gait, transfers, and stairs LTG Duration 10 weeks Three Impairment using AD for mobility, did not use AD prior to surgery Helicopter Dispatcher Goal (LTG) If appropriate, pt will demonstrate normalized gait mechanics without AD during 6 MWT 10/20/24: 1223 ft without AD, minimal deviations LTG Duration 10 weeks MET Two Impairment needs at least 1 UE to stand, demos LLE more forward Short Term Goal (STG) Pt will be able to perform at least 5 STS from standard chair with 1UE assist or less and maintain equal WB to demonstrate improved BLE strength for transfers 10/12/24: Pt demos STS w/ 1UE w/ cues for anterior weightshift and gluteal activation. She performs STS x10 w fwd reach (no UE support ) with Osman and improves eccentric control w/ repetition. 10/20/24: 5 STS from standard chair, no UE assist, increased effort, decreased eccentric control STG Duration 5 weeks PROGRESSING 10/20 Helicopter Dispatcher Goal (LTG) Pt will be able to perform at least 10 STS from standard chair using 1 UE or less to demonstrate improved BLE strength for transfers and gait LTG Duration 10 weeks One Impairment TUG 18.8 seconds with AD [facility] Goal (LTG) Pt will decreased TUG time with or without LRAD to <14 sec in order to demonstrate decreased fall risk 10/20/24: 10.71 sec LTG Duration 10 weeks MET Progress Towards Goals Progress Towards Goals Progressing Toward Goals,Goals Met Assessment Summary Assessment Pt tolerated session well. Able to stand without UE assist from standard chair with increased effort but poor eccentric control; better with foam added to decreased height. Good tolerance for resisted therapeutic exercises in standing added last session. Pt needs prn cues for form and correct execution; still has decreased activity tolerance but needs fewer standing rest breaks. Able to perform SLR for limited reps now, unable at 10/12 session. Descent on stairs still challenging regarding control but demos level pelvis and reciprocal pattern, no hip pain. PT educated pt on compliance with HEP to maximize strengthening. Pt would still continue to benefit from skilled PT at this time in order to improve L hip strength for transfers and gait. Physical Therapy Plan Frequency and Duration Frequency of Treatment 2x/Week Duration of treatment (weeks) 10 Plan of Care Start Date 09/19/24 Plan of Care End Date 12/02/24 Therapeutic Interventions Therapeutic Interventions Balance Training,Gait Training ,Home Exercise Program,Joint Mobilizations,Manual Therapy, Neuromuscular Re-education, Orthotic/Prosthetic Management ,Patient/Caregiver Education, Self-Care/Home Management, Sensory Integration,Soft Tissue Mobilization,Taping, Therapeutic Activities, Therapeutic Exercises Modalities Cold Pack/Ice Massage,Electric Stimulation,Hot Packs, Ultrasound Next Visit Focus/Plan Next Note Type Treatment Note Next Visit Plan No hip precautions per 09/19 conversation with buffing wheel presser at surgeon's office Gait train 1 trek pole to simulate walking stick use. STS training w/o UE (foam > no foam), leg press and step up for strengthening. Cont with SLR. Determine if SLS ok for HEP. Cont glute/hip strength, including hip IR and ER. progress balance Balance training: stable and unstable surfaces, SLS, semitandem stance
--- NOTE | 2024-10-27 15:33 | PT.OTN ---
Current Diagnoses Stiffness of left hip, not elsewhere classified (10/27/24) Other lack of coordination (10/27/24) Weakness (10/27/24) Fracture of unspecified part of neck of left femur, initial encounter for closed fracture (10/27/24) Physical Therapy Treatment Note PT-OP-A Visit Information Start: 09/19/24 12:53 Freq: Status: Active Protocol: Document 10/27/24 13:01 NM (Rec: 10/27/24 13:47 NM [id number]) Out-Patient Physical Therapy Visit Information Visit Information Visit Type Treatment Note Visit Note KX after 19 visits Visit Start Time 13:02 Visit Stop Time 13:45 Visit Number 7 Evaluation Information Evaluation Date 09/19/24 Precautions Precautions DOS 07/08/24 L hemiarthroplasty: no hip precautions per RN call on PT-OP-B Current Condition Start: 09/19/24 12:53 Freq: Status: Active Protocol: Document 09/19/24 14:34 NM (Rec: 09/19/24 15:42 NM [id number]) Current Condition History of Current Condition Onset Date DOS 07/08/25 Current Complaints balance, strength History of Current Condition Pt reports that she fell several months ago on her L side, caught her toe on her sneaker. She had a 07/08/24 ( fell on 07/07), had a L hemiarthroplasty. No complications with surgery. She had some physical therapy after surgery in a SNF, had [facility]. Pt reports does HEP 1x/day, but states not real faithful. Pt has been using a cane for mobility. States does not always use her cane at home but would not get very far without it. No falls since surgery but states that her balance is a little off. She does have a hx of falls, several years ago. Pt reports that she usually uses sandals, which caused her to trip when she caught herself on the rug . Pt lives with her granddaugher (21 years old). Pt has 5 steps onto her porch, has a daylight basement but does not go down to the basement except once in a while for laundry, garage rails; has rails on B side for all. Hx of pain in her ankles , knees, low back. Pt reports some compliance with hip precautions, she unsure if they're still in place. Pt unsure if she has another appt but saw PA at last appt. Treatment Goals Patient/Caregiver Goals get off of using the cane possible, improve balance, transfers PT-OP-C Subjective Start: 09/19/24 12:53 Freq: Status: Active Protocol: Document 10/27/24 13:01 NM (Rec: 10/27/24 13:47 NM [id number]) OP-PT Subjective Patient Comments Patient Comments Pt reports a little soreness but states thinks because has not been doing exercises. Reports aches quite a bit, especially if sitting; better with movement. Still planning to move so canceling next appt . Planning to keep last appt to discharge to maintenance. PT-OP-D Balance Start: 09/19/24 15:42 Freq: Status: Active Protocol: Document 09/19/24 14:34 NM (Rec: 09/19/24 15:43 NM [id number]) Balance Tests Single Limb Standing Single Limb- Right 5 seconds Single Limb- Left 3 seconds Semi-Tandem Standing Semi-Tandem Standing Balance 5 seconds PT-OP-E Functional Tests Start: 09/19/24 12:53 Freq: Status: Active Protocol: Document 09/19/24 14:34 NM (Rec: 09/19/24 15:42 NM [id number]) Functional Tests Five Times Sit to Stand Test Score able to perform 1 STS without UE support Timed Up and Go (TUG) Score 18.8 sec Comments uses cane PT-OP-F Manual Assessment Start: 09/19/24 12:53 Freq: Status: Active Protocol: Document 09/19/24 14:34 NM (Rec: 09/19/24 15:42 NM [id number]) Manual Assessments Soft Tissue Assessment Soft Tissue Mobility Assessment Tightness along hip flexors, glutes PT-OP-G Mobility & Gait Start: 09/19/24 12:53 Freq: Status: Active Protocol: Document 09/19/24 14:34 NM (Rec: 09/19/24 15:42 NM [id number]) OP Mobility Evaluation Bed Mobility Rolling rolls B Supine to and from Sit needs Min assist supine > sit to avoid breaking hip flexion precautions IND sit > supine Transfers Sit to Stand Needs at least 1 assist from UE to stand up, puts LLE slightly forward Able to perform 1 rep without UE with cueing for weight shift and increased effort, no pain OP Gait Assessment Gait Gait Assistance Required: Independent Distance (Feet) 150 Assistive Devices Assistive Device Tripod Cane/Hurry Cane Gait Deviations General Gait Pattern Antalgic,Decreased Feet Clearance Factors Limiting Gait Function Factors Limiting Gait Function Decreased Activity Tolerance, Decreased Strength,Poor Balance PT-OP-J Posture/Palpation/Skin Start: 09/19/24 12:53 Freq: Status: Active Protocol: Document 09/19/24 14:34 NM (Rec: 09/19/24 15:42 NM [id number]) Palpation Assessment Location L hip Palpation Details Tenderness over posterolateral hip especially near glute/ greater trochanter Tightness, trigger points over hip flexors, TFL Skin Assessment Incisional Assessment Incision Appearance/Comments Scar healed, intact; no scabs. Less mobility distally PT-OP-K Range of Motion Start: 09/19/24 12:53 Freq: Status: Active Protocol: Document 10/20/24 08:20 NM (Rec: 10/20/24 09:02 NM [id number]) Hip Goniometric Range of Motion Hip Right Flexion w/Knee Flexed 105 Abduction 25 Left Flexion w/Knee Flexed 100 Abduction 25 PT-OP-M Strength Start: 09/19/24 12:53 Freq: Status: Active Protocol: Document 10/20/24 08:20 NM (Rec: 10/20/24 09:02 NM [id number]) Hip Strength Hip Manual Muscle Testing Right Flexion (L2) 4- Good- Extension (S1) 4- Good- Abduction 4- Good- Adduction 4- Good- External Rotation 4- Good- Internal Rotation 4- Good- Left Flexion (L2) 4- Good- Extension (S1) 4- Good- Abduction 4- Good- Adduction 4 Good External Rotation 3 Fair Internal Rotation 3 Fair Comments 10/20/24: able to perform SLR now Knee Strength Knee Manual Muscle Testing Right Flexion (S2) 4 Good Extension (L3) 4 Good Left Flexion (S2) 4 Good Extension (L3) 4 Good PT-OP-Q Treatments Start: 09/19/24 12:53 Freq: Status: Active Protocol: Document 10/27/24 13:01 NM (Rec: 10/27/24 13:47 NM [id number]) Gym Equipment Shuttle Recovery B squat Details cued alignment, no locking knees Resistance 50# (1 navy) > 75# (1 navy) Reps/Time 2x15 Therapeutic Exercises Sitting Exercises hip ER Sitting Exercise Name slider for car transfers Side bilateral Resistance AROM > level 2 band Equipment Used slider under foot Reps/Minutes 15 ea Comments for car transfers STS Sitting Exercise Name STS Side bilateral Resistance lvl 1 band thighs Equipment Used std mesh chair, no UE assist; close SBA Reps/Minutes 10 Comments cued more hip hinge instead of straightening up quickly Standing Exercises lunge Side bilateral Equipment Used 1 hand support Reps/Minutes 15 ea Comments small ROM; cued bend at hips too Gait Training Gait Activity trek poles Description training for expected ambulation Device Used 1-2 poles Level of Assistance close SBA, intermittent CGA to steady Surface indoor, outdoor: grass, gravel , inclines, sidewalk, stairs Distance/Duration 15 min Treatment Focus sequencing Comments Cueing for sequencing and patterning, better with 1 trek pole in R hand than B poles. CGA for stairs on descent, otherwise close SBA. several instances of unsteadiness but able to steady with pole and no support recommended use for trail when visiting friend due to balance PT-OP-T Assessment and Plan Start: 09/19/24 12:53 Freq: Status: Active Protocol: Document 10/27/24 13:01 NM (Rec: 10/27/24 13:47 NM [id number]) Physical Therapy Assessment Goals Four Impairment decreased BLE strength Short Term Goal (STG) Pt will able to perform at least 10 stairs with reciprocal pattern and at least 1 rail assist for improved household mobility 10/20/24: 12 stairs 6 step STG Duration 8 weeks MET Half-Way Goal (LTG) Pt will increased L hip strength to at least 4+/5 MMT in order to improve strength for gait, transfers, and stairs LTG Duration 10 weeks Three Impairment using AD for mobility, did not use AD prior to surgery Ticket Sales Supervisor Goal (LTG) If appropriate, pt will demonstrate normalized gait mechanics without AD during 6 MWT 10/20/24: 1223 ft without AD, minimal deviations 10/27/24: edu and demos use of trek pole(s) for outdoor ambulation as needed LTG Duration 10 weeks MET Two Impairment needs at least 1 UE to stand, demos LLE more forward Short Term Goal (STG) Pt will be able to perform at least 5 STS from standard chair with 1UE assist or less and maintain equal WB to demonstrate improved BLE strength for transfers 10/12/24: Pt demos STS w/ 1UE w/ cues for anterior weightshift and gluteal activation. She performs STS x10 w fwd reach (no UE support ) with Osman and improves eccentric control w/ repetition. 10/20/24: 5 STS from standard chair, no UE assist, increased effort, decreased eccentric control STG Duration 5 weeks PROGRESSING 10/20 Ticket Sales Supervisor Goal (LTG) Pt will be able to perform at least 10 STS from standard chair using 1 UE or less to demonstrate improved BLE strength for transfers and gait 10/27/24: LTG Duration 10 weeks One Impairment TUG 18.8 seconds with AD Ticket Sales Supervisor Goal (LTG) Pt will decreased TUG time with or without LRAD to <14 sec in order to demonstrate decreased fall risk 10/20/24: 10.71 sec LTG Duration 10 weeks MET Assessment Summary Assessment Pt has no hip pain during session. Progressed STS to leg press for glute/quad strength , cueing for alignment. Able to get up from chair without UE support with increased effort and increased time. Lunges challenging bilaterally . Rest of session focusing on gait training with trek pole for carryover with expected ambulation on trail as pt moves to new house. Demos unsteadiness several times but no falls, able to correct with pole. One pole easier to coordinate than 1 pole. Pt and PT discussed discharge to maintenance next session; both in agreement. Physical Therapy Plan Frequency and Duration Frequency of Treatment 2x/Week Duration of treatment (weeks) 10 Plan of Care Start Date 09/19/24 Plan of Care End Date 12/02/24 Therapeutic Interventions Therapeutic Interventions Balance Training,Gait Training ,Home Exercise Program,Joint Mobilizations,Manual Therapy, Neuromuscular Re-education, Orthotic/Prosthetic Management ,Patient/Caregiver Education, Self-Care/Home Management, Sensory Integration,Soft Tissue Mobilization,Taping, Therapeutic Activities, Therapeutic Exercises Modalities Cold Pack/Ice Massage,Electric Stimulation,Hot Packs, Ultrasound Next Visit Focus/Plan Next Note Type Discharge Summary Next Visit Plan No hip precautions per 09/19 conversation with actuarial mathematician at surgeon's office ROM. Maintenance program. STS training w/o UE (foam > no foam), leg press and step up for strengthening. Cont with SLR. Determine if SLS ok for HEP. Cont glute/hip strength, including hip IR and ER. progress balance Balance training: stable and unstable surfaces, SLS, semitandem stance
--- NOTE | 2024-11-11 10:15 | PT-OP ANOTE ---
PT called and left message for pt about discharge from PT at her request. Educated to follow up with surgeon or PCP if she develops pain symptoms or for new PT referral should she feel like she needs more PT in future.
--- NOTE | 2024-11-11 10:18 | PT.OPDS ---
Current Diagnoses Stiffness of left hip, not elsewhere classified (10/27/24) Other lack of coordination (10/27/24) Weakness (10/27/24) Fracture of unspecified part of neck of left femur, initial encounter for closed fracture (10/27/24) Visit Care Team Role Provider Type Edel Farah MD Family Provider Physician Primary Care Provider Specialty: Family Practice Address: [address] [place] [address], [facility], [place], [address] Email: [email or web address] Kee Webb MD Attending Provider Physician Referring Provider Specialty: Orthopedics Orthopedic Surgery Address: [address] [place] [address], [place], [address] Email: [email or web address] Visit Number Visit Number 7 Discharge Summary PT-OP-B Current Condition Start: 09/19/24 12:53 Freq: Status: Active Protocol: Document 09/19/24 14:34 NM (Rec: 09/19/24 15:42 NM [id number]) Current Condition History of Current Condition Onset Date DOS 07/08/25 Current Complaints balance, strength History of Current Condition Pt reports that she fell several months ago on her L side, caught her toe on her sneaker. She had a 07/08/24 ( fell on 07/07), had a L hemiarthroplasty. No complications with surgery. She had some physical therapy after surgery in a SNF, had [facility]. Pt reports does HEP 1x/day, but states not real faithful. Pt has been using a cane for mobility. States does not always use her cane at home but would not get very far without it. No falls since surgery but states that her balance is a little off. She does have a hx of falls, several years ago. Pt reports that she usually uses sandals, which caused her to trip when she caught herself on the rug . Pt lives with her granddaugher (21 years old). Pt has 5 steps onto her porch, has a daylight basement but does not go down to the basement except once in a while for laundry, garage rails; has rails on B side for all. Hx of pain in her ankles , knees, low back. Pt reports some compliance with hip precautions, she unsure if they're still in place. Pt unsure if she has another appt but saw PA at last appt. Treatment Goals Patient/Caregiver Goals get off of using the cane possible, improve balance, transfers PT-OP-C Subjective Start: 09/19/24 12:53 Freq: Status: Active Protocol: Document 10/27/24 13:01 NM (Rec: 10/27/24 13:47 NM [id number]) OP-PT Subjective Patient Comments Patient Comments Pt reports a little soreness but states thinks because has not been doing exercises. Reports aches quite a bit, especially if sitting; better with movement. Still planning to move so canceling next appt . Planning to keep last appt to discharge to maintenance. PT-OP-D Balance Start: 09/19/24 15:42 Freq: Status: Active Protocol: Document 09/19/24 14:34 NM (Rec: 09/19/24 15:43 NM [id number]) Balance Tests Single Limb Standing Single Limb- Right 5 seconds Single Limb- Left 3 seconds Semi-Tandem Standing Semi-Tandem Standing Balance 5 seconds PT-OP-E Functional Tests Start: 09/19/24 12:53 Freq: Status: Active Protocol: Document 09/19/24 14:34 NM (Rec: 09/19/24 15:42 NM [id number]) Functional Tests Five Times Sit to Stand Test Score able to perform 1 STS without UE support Timed Up and Go (TUG) Score 18.8 sec Comments uses cane PT-OP-F Manual Assessment Start: 09/19/24 12:53 Freq: Status: Active Protocol: Document 09/19/24 14:34 NM (Rec: 09/19/24 15:42 NM [id number]) Manual Assessments Soft Tissue Assessment Soft Tissue Mobility Assessment Tightness along hip flexors, glutes PT-OP-G Mobility & Gait Start: 09/19/24 12:53 Freq: Status: Active Protocol: Document 09/19/24 14:34 NM (Rec: 09/19/24 15:42 NM [id number]) OP Mobility Evaluation Bed Mobility Rolling rolls B Supine to and from Sit needs Min assist supine > sit to avoid breaking hip flexion precautions IND sit > supine Transfers Sit to Stand Needs at least 1 assist from UE to stand up, puts LLE slightly forward Able to perform 1 rep without UE with cueing for weight shift and increased effort, no pain OP Gait Assessment Gait Gait Assistance Required: Independent Distance (Feet) 150 Assistive Devices Assistive Device Tripod Cane/Hurry Cane Gait Deviations General Gait Pattern Antalgic,Decreased Feet Clearance Factors Limiting Gait Function Factors Limiting Gait Function Decreased Activity Tolerance, Decreased Strength,Poor Balance PT-OP-J Posture/Palpation/Skin Start: 09/19/24 12:53 Freq: Status: Active Protocol: Document 09/19/24 14:34 NM (Rec: 09/19/24 15:42 NM [id number]) Palpation Assessment Location L hip Palpation Details Tenderness over posterolateral hip especially near glute/ greater trochanter Tightness, trigger points over hip flexors, TFL Skin Assessment Incisional Assessment Incision Appearance/Comments Scar healed, intact; no scabs. Less mobility distally PT-OP-K Range of Motion Start: 09/19/24 12:53 Freq: Status: Active Protocol: Document 10/20/24 08:20 NM (Rec: 10/20/24 09:02 NM [id number]) Hip Goniometric Range of Motion Hip Right Flexion w/Knee Flexed 105 Abduction 25 Left Flexion w/Knee Flexed 100 Abduction 25 PT-OP-M Strength Start: 09/19/24 12:53 Freq: Status: Active Protocol: Document 10/20/24 08:20 NM (Rec: 10/20/24 09:02 NM [id number]) Hip Strength Hip Manual Muscle Testing Right Flexion (L2) 4- Good- Extension (S1) 4- Good- Abduction 4- Good- Adduction 4- Good- External Rotation 4- Good- Internal Rotation 4- Good- Left Flexion (L2) 4- Good- Extension (S1) 4- Good- Abduction 4- Good- Adduction 4 Good External Rotation 3 Fair Internal Rotation 3 Fair Comments 10/20/24: able to perform SLR now Knee Strength Knee Manual Muscle Testing Right Flexion (S2) 4 Good Extension (L3) 4 Good Left Flexion (S2) 4 Good Extension (L3) 4 Good PT-OP-T Assessment and Plan Start: 09/19/24 12:53 Freq: Status: Active Protocol: Document 11/11/24 10:06 NM (Rec: 11/11/24 10:18 NM [id number]) Physical Therapy Assessment Goals Four Impairment decreased BLE strength Short Term Goal (STG) Pt will able to perform at least 10 stairs with reciprocal pattern and at least 1 rail assist for improved household mobility 10/20/24: 12 stairs 6 step STG Duration 8 weeks MET [employer]led [employer]arn Worker Goal (LTG) Pt will increased L hip strength to at least 4+/5 MMT in order to improve strength for gait, transfers, and stairs 10/20/24: 3 to 4-/5 for all L hip strength LTG Duration 10 weeks NOT MET Three Impairment using AD for mobility, did not use AD prior to surgery Care Home Goal (LTG) If appropriate, pt will demonstrate normalized gait mechanics without AD during 6 MWT 10/20/24: 1223 ft without AD, minimal deviations 10/27/24: edu and demos use of trek pole(s) for outdoor ambulation as needed LTG Duration 10 weeks MET Two Impairment needs at least 1 UE to stand, demos LLE more forward Short Term Goal (STG) Pt will be able to perform at least 5 STS from standard chair with 1UE assist or less and maintain equal WB to demonstrate improved BLE strength for transfers 10/12/24: Pt demos STS w/ 1UE w/ cues for anterior weightshift and gluteal activation. She performs STS x10 w fwd reach (no UE support ) with Osman and improves eccentric control w/ repetition. 10/20/24: 5 STS from standard chair, no UE assist, increased effort, decreased eccentric control STG Duration 5 weeks PROGRESSING 10/20 Care Home Goal (LTG) Pt will be able to perform at least 10 STS from standard chair using 1 UE or less to demonstrate improved BLE strength for transfers and gait 10/27/24: performed 10 STS from chair LTG Duration 10 weeks MET One Impairment TUG 18.8 seconds with AD Care Home Goal (LTG) Pt will decreased TUG time with or without LRAD to <14 sec in order to demonstrate decreased fall risk 10/20/24: 10.71 sec LTG Duration 10 weeks MET Assessment Summary Assessment Pt has been seen x6 treatments s/p L hemiarthroplasty in July 2024. Pt has progressed well toward goals, meeting all except for strength goals. Pt demos improvements in L hip ROM and strength. She has been partially compliant with HEP. Pt has canceled several appt due to a planned move, including her last scheduled appt on 11/09 where pt planned to discharge from PT to maintenance program for continued strengthening. Physical Therapy Plan Frequency and Duration Frequency of Treatment 2x/Week Duration of treatment (weeks) 10 Plan of Care Start Date 09/19/24 Plan of Care End Date 12/02/24 Therapeutic Interventions Therapeutic Interventions Balance Training,Gait Training ,Home Exercise Program,Joint Mobilizations,Manual Therapy, Neuromuscular Re-education, Orthotic/Prosthetic Management ,Patient/Caregiver Education, Self-Care/Home Management, Sensory Integration,Soft Tissue Mobilization,Taping, Therapeutic Activities, Therapeutic Exercises Modalities Cold Pack/Ice Massage,Electric Stimulation,Hot Packs, Ultrasound Discharge Physical Therapy Discharge Reasons Patient Request Discharge Comments Pt called clinic on 11/08/24 to request discharge from PT. Pt was planning to discharge at upcoming session on 11/09/24 per conversation with PT at last session on 10/27/24. Pt met all goals except for strength goal. Pt has been partially compliant with HEP, which decreased rehab progression. However, she is back to baseline mobility with ADLS, gait, and transfers. PT called pt on 11/11 to educate on following up with PCP or surgeon if pain symptoms return, change, or worsen, or for new PT referral. Pt will be discharged at her request as will no longer be attending PT due to move. Next Visit Focus/Plan Next Note Type Discharge Summary Next Visit Plan discharge from PT
== END 2024-11-16 15:51 | disposition home or self-care (01) ==
LOC: PHYS 13:00
PROVIDERS: Family Provider Family Medicine; PCP Family Medicine; Referring Provider Orthopaedic Surgery Adult Reconstructive Orthopaedic Surgery; Visit Provider Orthopaedic Surgery Adult Reconstructive Orthopaedic Surgery
DX: S72.002A Fracture of unspecified part of neck of left femur, initial encounter for closed fracture (principal); M25.652 Stiffness of left hip, not elsewhere classified; R53.1 Weakness; R27.8 Other lack of coordination
CPT/HCPCS: 97110; 97112; 97116; 97140; 97535

== ENCOUNTER → 2024-11-08 12:59 | Outpatient (CLI) | payer MEDICARE, OTHER, SELFPAY ==
[2024-07-07 17:22] VITALS: BMI 24.1
--- NOTE | 2024-11-08 13:01 | DI.MG.S_ITS ---
MM screening mammo BI: 11/08/2024. BI-RADS: 2 CLINICAL: 84-year old female for bilateral screening mammogram. Tyrer-Cuzick lifetime risk of 0.7%. Current reported family history of breast cancer: mother, sister and maternal aunt's daughter. PRIOR EXAMS 11/12/2021, 08/29/2020, 09/04/2018, 12/11/2017, 06/12/2017, 05/25/2017, 05/05/2017, 10/29/2015. MAMMOGRAPHY TECHNIQUE: 2D and 3D (tomosynthesis) digital mammographic views obtained, with additional images as needed for full coverage. Current study was also evaluated with a Computer Aided Detection (CAD) system. DENSITY B. There are scattered areas of fibroglandular density. MAMMOGRAPHY FINDINGS Right: Biopsy marker present on the right. There are no suspicious masses, calcifications, or other findings in the breast. Left: No suspicious mass, asymmetry, microcalcification, or other abnormality seen. IMPRESSION: Right * No evidence of malignancy with benign findings. Left * No evidence of malignancy. RECOMMENDATIONS Bilateral * Annual screening mammography. OVERALL ASSESSMENT CATEGORY BI-RADS-2: Benign. The [employer] recommends annual screening mammography beginning at age 40 for women with average risk of breast cancer. ELECTRONICALLY SIGNED: Elda Hammond M.D. on 11/09/2024 at 11:09:11 PM PT Interpreting Station ID: [id number]
== END ==
PROVIDERS: Family Provider Family Medicine; PCP Family Medicine; Referring Provider Family Medicine; Visit Provider Family Medicine
DX: Z12.31 Encounter for screening mammogram for malignant neoplasm of breast (principal); Z80.3 Family history of malignant neoplasm of breast
CPT/HCPCS: 77063; 77067

== ENCOUNTER → 2024-11-29 11:52 | Outpatient (CLI) | payer MEDICARE, OTHER, SELFPAY ==
[2024-07-07 17:22] VITALS: BMI 24.1
--- NOTE | 2024-11-29 11:53 | DI.RAD.S_ITS ---
PROCEDURE: XR HIP W PEL IF DONE LT 2V INDICATIONS: hip pain TECHNIQUE: 2 view(s) of the hip acquired. COMPARISON: [facility], [place], XR HIP W PEL IF DONE LT 2V, 07/08/2024, 14:22. FINDINGS: Bones: Patient is status post left hip arthroplasty, with hardware components in expected positions. The hip joint appears congruent. The visualized bony structures appear intact. Soft tissues: Overlying postoperative changes are noted. No suspicious soft tissue densities. IMPRESSION: Expected post-operative appearance of a hip arthroplasty. Dictated by: Raúl Arrington M.D. on 11/30/2024 at 13:50 Approved by: Raúl Arrington M.D. on 11/30/2024 at 13:57
== END ==
PROVIDERS: Family Provider Family Medicine; PCP Family Medicine; Referring Provider Family Medicine; Visit Provider Family Medicine
DX: M25.559 Pain in unspecified hip (principal); Z96.642 Presence of left artificial hip joint
CPT/HCPCS: 73502